=== PATIENT | female | born 1930 | race Caucasian/White ===

== ENCOUNTER 2018-04-17 07:38 | Emergency (ER) | payer MEDICARE ==
[~2018-04-17] VITALS: Ht 162.6 cm; Wt 54.4 kg
--- OUTSIDE RECORDS SUMMARY | ~2018-04-17 | XMS | Clinical Summary ---
Demographics + + + | Address | [address] | | | [place] [address] | + + + | Home Phone | | + + + | Preferred Language | Unknown | + + + | Marital Status | | + + + | Shinto Affiliation | 1077 | + + + | Race | Unknown | + + + | Ethnic Group | Unknown | + + + Author + + + | Author | [facility] | | | and [place] | + + + | Organization | [facility] | | | and [place] | + + + | Address | Unknown | + + + | Phone | Unavailable | + + + Support + + + + + | Name | Relationship | Address | Phone | + + + + + | Yury Tom | ECON | [address] | | | | | [place] | | | | | [address] | | + + + + + | Han Tom | ECON | [address] | | | | | [place] | | | | | [address] | | + + + + + Care Team Providers + +------+ + | Care Fixing Machine Operator Name | Role | Phone | + +------+ + | Alfred Jones MD | PP | | + +------+ + Allergies No Known Allergies Current Medications + + +--------+---------+------+------+-------+ | Prescription | Sig. | Disp. | Refills | Star | End | Statu | | | | | | t | Date | s | | | | | | Date | | | + + +--------+---------+------+------+-------+ | ALPRAZolam (XANAX) | 1 tablet by mouth | | | 08/2 | | Activ | | 0.25 mg tablet | twice daily as | | | 0/20 | | e | | | needed | | | 12 | | | + + +--------+---------+------+------+-------+ | sotalol (BETAPACE) | TAKE 1 TABLET TWICE | 180 | 3 | 03/2 | | Activ | | 80 mg tablet | DAILY | tablet | | 6/20 | | e | | | | | | 18 | | | + + +--------+---------+------+------+-------+ Active Problems + + + | Problem | Noted Date | + + + | VARICOSE VEIN | | + + + | IRRITABLE BOWEL SYNDROME, HX OF | | + + + | Paroxysmal atrial fibrillation (HCC) | | + + + | Paroxysmal supraventricular tachycardia (HCC) | | + + + | Palpitations | | + + + + + | Overview: Echo, 04/01/2011, LVEF was 75% | | Nuclear stress test, 04/01/2011, LVEF 84% | + + + +---+ | Hyperlipidemia, mixed | | + +---+ | Essential hypertension with goal blood pressure less than 130/80 | | + +---+ Family History + +-------+ + + | Relation | Name | Status | Comments | + +-------+ + + | Father | | | stroke | | | | (Age | | | | | 86) | | + +-------+ + + | Mother | | | | | | | (Age | | | | | 100) | | + +-------+ + + | Sister | Lorena | Alive | | + +-------+ + + | Sister | Beth | | stroke | + +-------+ + + Social History + + + [...] + +---------+ + | Alcohol Use | Drinks/We | oz/Week | Comments | | | ek | | | + + +---------+ + | No | | | | + + +---------+ + + + + | Sex Assigned at | Date Recorded | | | | + + + | Not on file | | + + + Last Filed Vital Signs + + + + | Vital Sign | Reading | Time Taken | + + + + | Blood Pressure | 138/80 | 09/08/20178 PDT | + + + + | Pulse | 60 | 09/08/20171247 PDT | + + + + | Temperature | - | - | + + + + | Respiratory Rate | 12 | 09/08/20171247 PDT | + + + + | Oxygen Saturation | - | - | + + + + | Inhaled Oxygen | - | - | | Concentration | | | + + + + | Weight | 56.2 kg (123 lb 14.4 | 09/08/20171247 PDT | | | oz) | | + + + + | Height | 160 cm (5' 3") | 09/08/20171247 PDT | + + + + | Body Mass Index | 21.95 | 09/08/2017 1248 PDT | + + + + Plan of Treatment +--------+---------+ + + + | Date | Type | Specialty | Care Team | Description | +--------+---------+ + + + | 09/08/ | Office | | Yair, | | | 2019 | Visit | | MALIK Bangura [address] | | | | | | [place], | | | | | | [place] [address] | | | | | | [phone] | | | | | | | | +--------+---------+ + + + + + + + + | Health Maintenance | Due Date | Last Done | Comments | + + + + + | Vaccine: | | | | | Dtap/Tdap/Td (1 - | 9 | | | | Tdap) | | | | + + + + + | Vaccine: Zoster (1 | | | | | of 2) | 0 | | | + + + + + | Vaccine: | | | | | Pneumococcal 65+ | 5 | | | | Low/Medium Risk (1 | | | | | of 2 - PCV13) | | | | + + + + + | Vaccine: Influenza | | | | | (#1) | 8 | | | + + + + + Results Not on filefrom Last 3 Months Insurance + +--------+ +--------+ +---------+ | Payer | Benefi | Subscriber | Type | Phone | Address | | | t Plan | ID | | | | | | / | | | | | | | Group | | | | | + +--------+ +--------+ +---------+ | MEDICARE | MEDICA | [id number] | Medica | [phone] | | | RE | | re | [phone] | | | | PART A | | | | | | | AND B | | | | | + +--------+ +--------+ +---------+ | AARP | AARP | [id number] | Indemn | [phone] | | | MDCR | | ity | [phone] | | | | SUPPL | | | | | + +--------+ +--------+ +---------+ + +--------+ +--------+ + + | Guarantor Name | Accoun | Relation to | Date | Phone | Billing Address | | | t Type | Patient | of | | | | | | | | | | + +--------+ +--------+ + + | NAYELY TOM | Person | Self [birth year] | Home: | [address] | | | al/Fam | | 1930 | [phone] | [place] [address] | | | [place] | | | [phone] | | + +--------+ +--------+ + +
--- OUTSIDE RECORDS SUMMARY | ~2018-04-17 | XMS | Clinical Summary ---
Demographics + + + | Address | [address] | | | [place] [address] | + + + | Home Phone [...] | Author | [facility] | | | and [place] | + + + | Organization | [facility] | | | and [...] [place] | | | | | [address] | | + + + + + | Han Tom | ECON | [address] | | | | | [place] | | | | | [address] | | + + + + + Care Team Providers + +------+ + | Care Line Up Worker Name | Role | Phone | [...] [place], | | | | | | [place] [address] | | | | | | [phone] | | | | | | | [...] +--------+ +---------+ | MEDICARE | MEDICA | [id number] | Medica | [phone] | | | | RE | | re | [phone] | | | | PART A | | | | | | | AND B | | | | | + +--------+ +--------+ +---------+ | AARP | AARP | [id number] | Indemn | [phone] | | | [...] | 1930 | [phone] | [place] [address] | | | [place] | | | [phone] | | + +--------+ +--------+ + +
[~2018-04-17 07:38] MED LIST: ALPRAZOLAM0.5 MG PO; ASPIRIN EC325 MG PO; NORCO 5-325 TA1 EACH PO; SOTALOL80 MG PO
[2018-04-17] MEDS ORDERED: KEFLEX500 MG PO (08:06)
== END 2018-04-17 08:15 | disposition home or self-care (01) ==
LOC: ED 07:38
DX: G89.18 Other acute postprocedural pain (principal); M79.605 Pain in left leg; Z48.817 Encounter for surgical aftercare following surgery on the skin and subcutaneous tissue; Z79.899 Other long term (current) drug therapy
CPT/HCPCS: 99283

== ENCOUNTER 2019-10-22 22:13 | Emergency (ER) | payer MEDICARE ==
[~2019-10-22] VITALS: Ht 162.6 cm; Wt 54.4 kg
--- OUTSIDE RECORDS SUMMARY | ~2019-10-22 | XMS | Encounter Summary ---
Demographics + + + | Address | [address] | | | [place] [address] | + + + | Home Phone | | + + + | Preferred Language | Unknown | + + + | Marital Status | | + + + | Congregation Affiliation | 1077 | + + + | Race | Unknown | + + + | Ethnic Group | Unknown | + + + Author + + + | Author | [facility] | | | and [place] | + + + | Organization | [facility] | | | and [place] | + + + | Address | Unknown | + + + | Phone | Unavailable | + + + Support + + + + + | Name | Relationship | Address | Phone | + + + + + | Yury Holt | ECON | [address] | | | | | [place] | | | | | [address] | | + + + + + | Han Holt | ECON | [address] | | | | | [place] | | | | | [address] | | + + + + + Care Team Providers + +------+ + | Care Circuit Clerk Name | Role | Phone | + +------+ + | Alfred Jones MD | PCP | | + +------+ + Reason for Visit + + + | Reason | Comments | + + + | Medication Refill | | + + + Encounter Details +--------+--------+ + + + | Date | Type | Department | Care Team | Description | +--------+--------+ + + + | 09/08/ | Refill | [facility] [place] | Yair, | Medication Refill | | 2017 | | [facility] [address] | MALIK Bangura [address] | | | | | [place], | [place], | | | | | [place] [address] | [place] [address] | | | | | [phone] | [phone] | | | | | | | | +--------+--------+ + + + Social History + + + +--------+------+ | Tobacco Use | Types | Packs/Day | Years | Date | | | | | Used | | + + + +--------+------+ | Former Smoker | Cigarettes | | | | + + + +--------+------+ + +---+---+---+ | Smokeless Tobacco: | | | | | Never Used | | | | + +---+---+---+ + + | Comments: quit smoking in 1949 | + + + + +---------+ + | Alcohol Use | Drinks/Week | oz/Week | Comments | + + +---------+ + | No | | | | + + +---------+ + + + + | Sex Assigned at | Date Recorded | | | | + + + | Not on file | | + + + + + + + | Job Start Date | Occupation | Industry | + + + + | Not on file | Not on file | Not on file | + + + + + + + + | Travel History | Travel Start | Travel End | + + + + + + | No recent travel history available. | + + documented as of this encounter Plan of Treatment Not on filedocumented as of this encounter Visit Diagnoses Not on filedocumented in this encounter"
--- OUTSIDE RECORDS SUMMARY | ~2019-10-22 | XMS | Encounter Summary ---
Demographics + + + | Address | [address] | | | [place] [address] | + + + | Home Phone | | + + + | Preferred Language | Unknown | + + + | Marital Status | | + + + | Faith Affiliation | 1077 | + + + | Race | Unknown | + + + | Ethnic Group | Unknown | + + + Author + + + | Author | [facility] | | | and [place] | + + + | Organization | [facility] | | | and [place] [...] [place] | | | | | [address] | | + + + + + | Han Holt | ECON | [address] | | | | | [place] | | | | | [address] | | + + + + + Care Team Providers + +------+ + | Care Optical Coating Technician Name | Role | Phone | + +------+ + | Alfred Jones MD | PCP | | + +------+ + Reason for Visit + + + | Reason | Comments | + + + | Follow-up | | + + + | Atrial Fibrillation | | + + + | Hypertension | | + + + | Palpitations | | + + + Encounter Details +--------+---------+ + + + | Date | Type | Department | Care Team | Description | +--------+---------+ + + + | 09/08/ | Office | [facility] [place] | [place], | Essential | | 2018 | Visit | CARDIOLOGY [address] | MALIK Bangura [address] | hypertension with | | | | [place], | [place], | goal blood pressure | | | | [place] [address] | [place] [address] | less than 130/80 | | | | [phone] | [phone] | (Primary Dx); | | | | | | Paroxysmal atrial | | | | | | fibrillation (HCC); | | | | | | Paroxysmal | | | | | | supraventricular | | | | | | tachycardia (HCC); | | | | | | Palpitations; | | | | | | Hyperlipidemia, | | | | | | mixed | +--------+---------+ + + + Social History + + [...] + + | Comments: quit smoking in 1948 | + + + + +---------+ + [...] + + documented as of this encounter Last Filed Vital Signs + + + + + | Vital Sign | Reading | Time Taken | Comments | + + + + + | Blood Pressure | 138/80 | 09/08/2017 12:48 PM | | | | | PDT | | + + + + + | Pulse | 60 | 09/08/2017 12:48 PM | | | | | PDT | | + + + + + | Temperature | - | - | | + + + + + | Respiratory Rate | 12 | 09/08/2017 12:48 PM | | | | | PDT | | + + + + + | Oxygen Saturation | - | - | | + + + + + | Inhaled Oxygen | - | - | | | Concentration | | | | + + + + + | Weight | 56.2 kg (123 lb 14.4 | 09/08/2017 12:48 PM | | | | oz) | PDT | | + + + + + | Height | 160 cm (5' 3") | 09/08/2017 12:48 PM | | | | | PDT | | + + + + + | Body Mass Index | 21.95 | 09/08/2017 12:48 PM | | | | | PDT | | + + + + + documented in this encounter Progress Notes Sveta Mazariegos ARNP - 09/08/2017 1:30 PM PDTFormatting of this note might be differen t from the original. PATIENT NAME: Nayely Holt : 1930: AGE: 87 y.o. PRIMARY CARE: Alfred Jones MD OUTPATIENT FOLLOW UP VISIT Date of Service: 09/08/2017 HISTORY OF PRESENT ILLNESS: Nayely Holt is a 87 y.o. female with a history of paroxysmal atrial fibrillation, es sential hypertension, anxiety disorder and mixed hyperlipidemia. She was last seen 09/02/16 at which time she has been advised to continue Sotalol but make sure the she takes it twice a day, continue with regular walking, she will follow up in 1 ye ar, or sooner with concerns. Since that time, she has been feeling "just great". She has had a good energy level. She t aviva to stay active. 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 She has not had an y chest pain or discomfort at rest or with exertion. She has not noticed shortness of erik th. She has not had any lightheadedness or dizziness. She has not noticed palpitations. S he has not had leg swelling. She is able to sleep laying down at night without any symptoms of shortness of breath. She has had no cardiac complaints or symptoms. MEDICAL, SURGICAL, AND PERSONAL HISTORY Past Medical, Surgical, Family, and Social History are reviewed in EPIC. CURRENT PROBLEMS Patient Active Problem List Diagnosis VARICOSE VEIN IRRITABLE BOWEL SYNDROME, HX OF Paroxysmal atrial fibrillation Paroxysmal supraventricular tachycardia Palpitations Hyperlipidemia, mixed Essential hypertension with goal blood pressure less than 130/80 CURRENT MEDICATIONS Current Outpatient Prescriptions Medication Sig Dispense Refill ALPRAZolam (XANAX) 0.25 mg tablet 1 tablet by mouth twice daily as needed sotalol (BETAPACE) 80 mg tablet Take 1 tablet by mouth 2 times daily. 180 tablet 3 No current facility-administered medications for this visit. ALLERGIES No Known Allergies ROS Review of Systems Constitutional: Negative for malaise/fatigue. HENT: Negative for nosebleeds. Respiratory: Negative for shortness of breath. Cardiovascular: Negative for chest pain, palpitations and leg swelling. Neurological: Negative for dizziness and headaches. OBJECTIVE: PHYSICAL EXAM BP 138/80 | Pulse 60 | Resp 12 | Ht 1.6 m (5' 3") | Wt 56.2 kg (123 lb 14.4 oz) | BMI 21.95 kg/m Physical Exam Constitutional: She appears well-developed and well-nourished. No distress. Female individual without acute distress. Neck: Normal carotid pulses, no hepatojugular reflux and no JVD present. Carotid bruit is n ot present. Cardiovascular: Regular rhythm, S1 normal, S2 normal, normal heart sounds, intact distal pu lses and normal pulses. Bradycardia present. PMI is not displaced. Exam reveals no gallop , no S3, no S4 and no friction rub. No murmur heard. Pulses: Carotid pulses are 2+ on the right side, and 2+ on the left side. Dorsalis pedis pulses are 2+ on the right side, and 2+ on the left side. Posterior tibial pulses are 2+ on the right side, and 2+ on the left side. Pulmonary/Chest: Effort normal and breath sounds normal. No accessory muscle usage. No resp iratory distress. She has no wheezes. She has no rhonchi. She has no rales. Abdominal: Normal appearance, normal aorta and bowel sounds are normal. She exhibits no abd ominal bruit. There is no hepatosplenomegaly. There is no tenderness. Musculoskeletal: She exhibits no edema. Neurological: She is alert. Gait normal. Skin: Skin is warm and dry. Small varicosities in lower extremities Psychiatric: She has a normal mood and affect. Her mood appears not anxious. She does not e xhibit a depressed mood. ECG: I personally independently reviewed ECG tracing during this visit (interpreted and naty led by another provider): Results for orders placed or performed in visit on 09/08/17 ECG 12 lead Result Value Ref Range INTERPRETATION TEXT Sinus bradycardia 1st degree AV block heart rate 54 bpm LAB RESULTS reviewed during visit today primarily from [facility]: LIPID Lab Results Component Value Date CHOLHDL 2.9 09/05/2017 LDLEX 137 (A) 09/05/2017 HDLEX 83.7 09/05/2017 TRIGEX 105 09/05/2017 CHOLEX 242 (A) 09/05/2017 CHEMISTRY Lab Results Component Value Date GLU 99 07/24/2013 GLUEX 88 09/05/2017 NA 138 07/24/2013 NAEX 139 09/05/2017 K 4.1 07/24/2013 KEX 4.1 09/05/2017 CL 105 07/24/2013 CLEX 102 09/05/2017 CO2 26 07/24/2013 CO2EX 28 09/05/2017 CALCIUM 8.9 07/24/2013 ALKPHOS 71 12/18/2011 ASTEX 16 09/05/2017 ALTEX 11 09/05/2017 BILITOT 0.5 12/18/2011 CREA 0.65 07/24/2013 BUN 26 (H) 07/24/2013 EGFR >60 07/24/2013 EGFREX 96 09/05/2017 CREEX 0.59 (A) 09/05/2017 HEMATOLOGY Lab Results Component Value Date WBC 4.9 (A) 04/04/2011 WBCEX 4.3 (A) 09/05/2017 HGB 12.9 04/04/2011 HGBEX 12.9 09/05/2017 HCT 38.0 (A) 04/04/2011 HCTEX 41.3 09/05/2017 PLT 211 04/04/2011 PLTEX 244 09/05/2017 I reviewed records from [facility] for office visit on 08/2016 whic h is summarized in the HPI. Above data and testing is reviewed this visit; testing below is historical data unless othe rwise specified. ASSESSMENT: 1. Paroxysmal atrial fibrillation/paroxysmal supraventricular tachycardia with palpitations : A. The echocardiogram from 04/01/11 revealed normal left ventricul ar size, LVEF 75%, grade 1 left ventricular diastolic dysfunction, trace MR, mild TR and mil d pulmonary hypertension, peak systolic pressure 40 mmHg. B. A normal Regadenoson SPECT MPI on 04/01/11. LVEF by gated SPE CT was 84%. C. Today she is in a normal sinus rhythm. She has had no breakthro ugh episodes of palpitations or atrial fibrillation. She is tolerating well the Sotalol. 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 There is no leg swelling on the physical e xam and no other signs or symptoms of overt congestive heart failure. Long-term anticoagul ations to minimize the risk of stroke was brought up again. She is taking aspirin and she is not interested in starting any anticoagulation medication at this point. She states mele t she understands her pros and cons but she chooses not to do that at this point. Risk of stroke is reviewed today; her risk factors are Age 65 to 74 (1) and Female Gender (1), mook g her a [id number] of 2, estimating a 2=2.2% risk of stroke per year in atrial fibrillatio n. Risk of bleed on anticoagulant is also reviewed today; her risk factors are HTN (1), >6 4 YO (1) and NSAIDS/ASA (1), giving her a HAS-BLED score of 3, patient is at 2-3= Interm ediate Risk (4.1-5.8%) for risk of bleed. ESC guidelines recommend anticoagulation for sc ores of 1 or greater. ACC guidelines recommend anticoagulation for scores of 2 or greater. She was on warfarin in the past and stopped taking it in 07/2011, and is not willing to cons ider anticoagulation at this time. She does not want to take Aspirin 2. Essential hypertension with goal blood pressure less than 130/80: A. well-controlled blood pressure 3. History of anxiety disorder: has not been an active issue for her 4. History of Hyperlipidemia, mixed: A. Borderline elevated cholesterol panel. Patient does not want to start any medication and she has reviewed with me low fat diet. PLAN: 1. The current medical regimen is effective; continue present plan and medications. 2. She will follow up in 1 year, or sooner with concerns. Portions of this chart may have been created with [employer] voice recognition software. Occasi onal wrong-word or sound-alike substitutions may have occurred due to the inherent ward itations of voice recognition software. Please read the chart carefully and recognize, using context, where these substitutions have occurred. documented in th is encounter Plan of Treatment Not on filedocumented as of this encounter Procedures + +--------+ + + + | Procedure Name | Priori | Date/Time | Associated Diagnosis | Comments | | | ty | | | | + +--------+ + + + | ECG 12 LEAD | Routin | 09/08/2017 | Essential | Results for this | | | e | 4:33 PM | hypertension with | procedure are in the | | | | PDT | goal blood pressure | results section. | | | | | less than 130/80 | | | | | | Paroxysmal atrial | | | | | | fibrillation (HCC) | | | | | | Paroxysmal | | | | | | supraventricular | | | | | | tachycardia (HCC) | | | | | | Palpitations | | | | | | Hyperlipidemia, | | | | | | mixed | | + +--------+ + + + documented in this encounter Results ECG 12 lead (09/08/2017 4:33 PM PDT) + + + + + + | Component | Value | Ref Range | Performed | Pathologist | | | | | At | Signature | + + + + + + | VENTRICULAR | 54 | BPM | [facility] | | | RATE EKG | | | | | + + + + + + | ATRIAL RATE | 54 | BPM | [facility] | | + + + + + + | P-R | 234 | ms | [facility] | | | INTERVAL | | | | | + + + + + + | QRS | 86 | ms | [facility] | | | DURATION | | | | | + + + + + + | Q-T | 428 | ms | [facility] | | | INTERVAL | | | | | + + + + + + | Q-T | 405 | ms | [facility] | | | INTERVAL | | | | | | (CORRECTED) | | | | | + + + + + + | P WAVE AXIS | 68 | degrees | [facility] | | + + + + + + | QRS AXIS | 60 | degrees | [facility] | | + + + + + + | T AXIS | 61 | degrees | [facility] | | + + + + + + | INTERPRETAT | Sinus bradycardia with | | [facility] | | | ION TEXT | 1st degree AV | | | | | | blockOtherwise normal | | | | | | ECGWhen compared with | | | | | | ECG of 02-SEP-2016 | | | | | | 12:54,No significant | | | | | | change was | | | | | | foundConfirmed by | | | | | | TADEO DUBOSE, GIACOMO | | | | | | ([id number]) on 09/08/2017 | | | | | | 4:33:31 PM | | | | + + + + + + + + | Specimen | + + | | + + + + + | Narrative | Performed At | + + + | | | + + + + +---------+ + + | Performing | Address | City/State/Zipcode | Phone Number | | Organization | | | | + +---------+ + + | [facility] | | | | + +---------+ + + documented in this encounter Visit Diagnoses + + | Diagnosis | + + | Essential hypertension with goal blood pressure less than 130/80 - Primary | + + | Paroxysmal atrial fibrillation (HCC) Atrial fibrillation | + + | Paroxysmal supraventricular tachycardia (HCC) Paroxysmal supraventricular tachycardia | + + | Palpitations | + + | Hyperlipidemia, mixed Mixed hyperlipidemia | + + documented in this encounter
--- OUTSIDE RECORDS SUMMARY | ~2019-10-22 | XMS | Encounter Summary ---
Demographics + + + | Address | [address] | | | [place] [address] | + + + | Home Phone | | + + + | Preferred Language | Unknown | + + + | Marital Status | | + + + | Pentecostal Affiliation | 1077 | + + + | Race | Unknown | + + + | Ethnic Group | Unknown | + + + Author + + + | Author | [facility] | | | and [place] | + + + | Organization | [facility] | | | and [...] [place] | | | | | [address] | | + + + + + | Han Holt | ECON | [address] | | | | | [place] | | | | | [address] | | + + + + + Care Team Providers + +------+ + | Care Rn Home Care Name | Role | Phone | + +------+ + | Alfred Jones MD | PCP | | + +------+ + Reason for Visit +--------+ + | Reason | Comments | +--------+ + | LABS | | +--------+ + Encounter Details +--------+ + + + + | Date | Type | Department | Care Team | Description | +--------+ + + + + | 08/28/ | Telephone | [facility] [place] | Yair | KAREN | | 2018 | | CARDIOLOGY [address] | MALIK Bangura [address] | | | | | [place], | [place], | | | | | [place] [address] | [place] [address] | | | | | [phone] | [phone] | | | | | | | | +--------+ + + + + Social History + + [...] as of this encounter Plan of Treatment + +------+--------+ + + | Name | Type | Priori | Associated Diagnoses | Order Schedule | | | | ty | | | + +------+--------+ + + | CBC with | Lab | Routin | Paroxysmal atrial | 1 Occurrences | | Differential | | e | fibrillation (HCC) | starting 08/28/2017 | | | | | | until 08/29/2018 | + +------+--------+ + + | Comprehensive | Lab | Routin | Paroxysmal atrial | 1 Occurrences | | Metabolic Panel | | e | fibrillation (HCC) | starting 08/28/2017 | | | | | | until 08/29/2018 | + +------+--------+ + + | Lipid Panel | Lab | Routin | Hyperlipidemia, | 1 Occurrences | | | | e | mixed | starting 08/28/2017 | | | | | | until 08/29/2018 | + +------+--------+ + + documented as of this encounter Visit Diagnoses + + | Diagnosis | + + | Paroxysmal atrial fibrillation (HCC) - Primary Atrial fibrillation | + + | Hyperlipidemia, mixed Mixed hyperlipidemia | + + documented in this encounter"
--- OUTSIDE RECORDS SUMMARY | ~2019-10-22 | XMS | Encounter Summary ---
Demographics + + + | Address | [address] | | | [place] [address] | + + + | Home Phone | | + + + | Preferred Language | Unknown | + + + | Marital Status | | + + + | Episcopal Affiliation | 1077 | + + + | Race | Unknown | + + + | Ethnic Group | Unknown | + + + Author + + + | Author | and [facility] | | | and [place] | + + + | Organization | and [facility] | | | and [place] | [...] [place] | | | | | [address] | | + + + + + | Han Holt | ECON | [address] | | | | | [place] | | | | | [address] | | + + + + + Care Team Providers + +------+ + | Care Cement Worker Name | Role | Phone | + +------+ + | Alfred Jones MD | PCP | | + +------+ + Encounter Details +--------+ + + + + | Date | Type | Department | Care Team | Description | +--------+ + + + + | 08/09/ | Abstract | [facility] | Yair, | | | 2014 | | CARDIOLOGY [address] | MALIK Bangura [address] | | | | | [place], | [place], | | | | | [place] [address] | [place] [address] | | | | | [phone] | [phone] | | | | | | | [...] | + +--------+ + + + | EXTERNAL LAB: | Routin | 05/11/2014 | | Results for this | | TRIGLYCERIDES | e | 10:56 AM | | procedure are in the | | | | PST | | results section. | + +--------+ + + + | EXTERNAL LAB: | Routin | 05/11/2014 | | Results for this | | CHOLESTEROL, HDL | e | 10:56 AM | | procedure are in the | | | | PST | | results section. | + +--------+ + + + | EXTERNAL LAB: | Routin | 05/11/2014 | | Results for this | | CHOLESTEROL, TOTAL | e | 10:56 AM | | procedure are in the | | | | PST | | results section. | + +--------+ + + + | EXTERNAL LAB: | Routin | 05/11/2014 | | Results for this | | CHOLESTEROL, LDL | e | 10:56 AM | | procedure are in the | | | | PST | | results section. | + +--------+ + + + | LIPID PANEL | Routin | 05/11/2014 | | Results for this | | | e | 10:56 AM | | procedure are in the | | | | PST | | results section. | + +--------+ + + + | HEMOGLOBIN A1C | Routin | 05/11/2014 | | Results for this | | | e | 10:56 AM | | procedure are in the | | | | PST | | results section. | + +--------+ + + + documented in this encounter Results Lipid Panel (05/11/2014 10:56 AM PST) + +-------+ + + + | Component | Value | Ref Range | Performed | Pathologist | | | | | At | Signature | + +-------+ + + + | Chol/HDL | 2.5 | | | | | Ratio | | | | | + +-------+ + + + | VLDL | 13 | mg/dL | | | + +-------+ + + + | LDl/HDL | 1.25 | | | | | Ratio | | | | | + +-------+ + + + + + | Specimen | + + | Blood specimen | | (specimen) | + + Hemoglobin A1C (05/11/2014 10:56 AM PST) + +-------+ + + + | Component | Value | Ref Range | Performed | Pathologist | | | | | At | Signature | + +-------+ + + + | Hemoglobin | 7.6 | 5.7 % | EXTERNAL | | | A1c | | | LAB | | + +-------+ + + + + + | Specimen | + + | Blood specimen | | (specimen) | + + + + | Resulting Agency Comment | + + | [facility] | + + + +---------+ + + | Performing | Address | City/State/Zipcode | Phone Number | | Organization | | | | + +---------+ + + | EXTERNAL LAB | | | | + +---------+ + + External Lab: Triglycerides (05/11/2014 10:56 AM PST) + +-------+ + + + | Component | Value | Ref Range | Performed | Pathologist | | | | | At | Signature | + +-------+ + + + | Triglycerid | 64 | 40 - 150 | EXTERNAL | | | es, | | | LAB | | | External | | | | | + +-------+ + + + + + | Specimen | + + | Blood specimen | | (specimen) | + + + + | Resulting Agency Comment | + + | [facility] | + + + +---------+ + + | Performing | Address | City/State/Zipcode | Phone Number | | Organization | | | | + +---------+ + + | EXTERNAL LAB | | | | + +---------+ + + External Lab: Cholesterol, HDL (05/11/2014 10:56 AM PST) + +-------+ + + + | Component | Value | Ref Range | Performed | Pathologist | | | | | At | Signature | + +-------+ + + + | HDL | 54 | 40 - 67 | EXTERNAL | | | Cholesterol | | | LAB | | | , External | | | | | + +-------+ + + + + + | Specimen | + + | Blood specimen | | (specimen) | + + + + | Resulting Agency Comment | + + | [facility] | + + + +---------+ + + | Performing | Address | City/State/Zipcode | Phone Number | | Organization | | | | + +---------+ + + | EXTERNAL LAB | | | | + +---------+ + + External Lab: Cholesterol, Total (05/11/2014 10:56 AM PST) + +-------+ + + + | Component | Value | Ref Range | Performed | Pathologist | | | | | At | Signature | + +-------+ + + + | Cholesterol | 134 | 200 | EXTERNAL | | | , Total, | | | LAB | | | External | | | | | + +-------+ + + + + + | Specimen | + + | Blood specimen | | (specimen) | + + + + | Resulting Agency Comment | + + | [facility] | + + + +---------+ + + | Performing | Address | City/State/Zipcode | Phone Number | | Organization | | | | + +---------+ + + | EXTERNAL LAB | | | | + +---------+ + + External Lab: Cholesterol, LDL (05/11/2014 10:56 AM PST) + +--------+ + + + | Component | Value | Ref Range | Performed | Pathologist | | | | | At | Signature | + +--------+ + + + | LDL | 67 (A) | 68 - 100 | EXTERNAL | | | Cholesterol | | | LAB | | | , Direct, | | | | | | External | | | | | + +--------+ + + + + + | Specimen | + + | Blood specimen | | (specimen) | + + + + | Resulting Agency Comment | + + | [facility] | + + + +---------+ + + | Performing | Address | City/State/Zipcode | Phone Number | | Organization | | | | + +---------+ + + | EXTERNAL LAB | | | | + +---------+ + + documented in this encounter Visit Diagnoses Not on filedocumented in this encounter"
--- OUTSIDE RECORDS SUMMARY | ~2019-10-22 | XMS | Encounter Summary ---
Demographics + + + | Address | [address] | | | [place] [address] | + + + | Home Phone | | + + + | Preferred Language | Unknown | + + + | Marital Status | | + + + | Spiritism Affiliation | 1077 | + + + | Race | Unknown | + + + | Ethnic Group | Unknown | + + + Author + + + | Author | [facility] | | | and [place] | + + + | Organization | [facility] | | | and [place] | [...] [place] | | | | | [address] | | + + + + + | Han Holt | ECON | [address] | | | | | [place] | | | | | [address] | | + + + + + Care Team Providers + +------+ + | Care Local Truck Driver Name | Role | Phone | + +------+ + | Alfred Jones MD | PCP | | + +------+ + Reason for Visit + + + | Reason | Comments | + + + | Lab Order | due for fastings labs | + + + Encounter Details +--------+ + + + + | Date | Type | Department | Care Team | Description | +--------+ + + + + | 08/29/ | Telephone | [facility] | Yair, | Lab Order (due for | | 2016 | | CARDIOLOGY [address] | Sveta, LEASE PICKER [address] | fastings labs ) | | | | [place], | [place], | | | | | [place] [address] | [place] [address] | | | | | [phone] | [phone] | | | | | | | [...]
--- OUTSIDE RECORDS SUMMARY | ~2019-10-22 | XMS | Encounter Summary ---
Demographics + + + | Address | [address] | | | [place] [address] | + + + | Home Phone | | + + + | Preferred Language | Unknown | + + + | Marital Status | | + + + | Mormon Affiliation | 1077 | + + + | Race | Unknown | + + + | Ethnic Group | Unknown | + + + Author + + + | Author | [facility] | | | and [place] | + + + | Organization | [facility] | | | and [place] | [...] [place] | | | | | [address] | | + + + + + | Han Holt | ECON | [address] | | | | | [place] | | | | | [address] | | + + + + + Care Team Providers + +------+ + | Care Tax Professional Name | Role | Phone | + +------+ + | Alfred Jones MD | PCP | | + +------+ + Reason for Visit + + + | Reason | Comments | + + + | Appointment | | + + + Encounter Details +--------+ + + + + | Date | Type | Department | Care Team | Description | +--------+ + + + + | 04/22/ | Telephone | [facility] | Dada Grant, | Appointment | | 2013 | | CARDIOLOGY [address] | MD [address] [place] | | | | | [place], | [place], | | | | | [place] [address] | [place] [id number] | | | | | [phone] | [phone] | | | | | | | [...]
--- OUTSIDE RECORDS SUMMARY | ~2019-10-22 | XMS | Encounter Summary ---
Demographics + + + | Address | [address] | | | [place] [address] | + + + | Home Phone | | + + + | Preferred Language | Unknown | + + + | Marital Status | | + + + | Congregation Affiliation | 1077 | + + + | Race | Unknown | + + + | Ethnic Group | Unknown | + + + Author + + + | Author | [facility] | | | and [place] | + + + | Organization | [facility] | | | and [place] [...] [place] | | | | | [address] | | + + + + + | Han Holt | ECON | [address] | | | | | [place] | | | | | [address] | | + + + + + Care Team Providers + +------+ + | Care Machine Gunner Name | Role | Phone | + +------+ + PCP | Unavailable | + +------+ + Encounter Details +--------+ + + + + | Date | Type | Department | Care Team | Description | +--------+ + + + + | 02/25/ | Abstract | [facility] | DATA [facility]IGRATION [facility]ANTE | | | 2011 | | Conversion Location | SR | | | | | [address] | | | | | | [place], [place] | | | | | | [address] | | | | | | [phone] | | | +--------+ + + + + Social History + +-------+ +--------+------+ | Tobacco Use | Types | Packs/Day | Years | Date | | | | | Used | | + +-------+ +--------+------+ | Never Assessed | | | | | + +-------+ +--------+------+ + + + | Sex Assigned at [...]
--- OUTSIDE RECORDS SUMMARY | ~2019-10-22 | XMS | Encounter Summary ---
Demographics + + + | Address | [address] | | | [place] [address] | + + + | Home Phone | | + + + | Preferred Language | Unknown | + + + | Marital Status | | + + + | Adventist Affiliation | 1077 | + + + | Race | Unknown | + + + | Ethnic Group | Unknown | + + + Author + + + | Author | [facility] | | | and [place] | + + + | Organization | [facility] | | | and [place] [...] [place] | | | | | [address] | | + + + + + | Han Holt | ECON | [address] | | | | | [place] | | | | | [address] | | + + + + + Care Team Providers + +------+ + | Care Asthma Educator Name | Role | Phone | + +------+ + | Alfred Jones MD | PCP | | + +------+ + Reason for Visit + + + | Reason | Comments | + + + | Lab Order | due for fasting labs prior to appt | + + + Encounter Details +--------+ + + + + | Date | Type | Department | Care Team | Description | +--------+ + + + + | 08/22/ | Telephone | [facility] | Yair, | Lab Order (due for | | 2015 | | CARDIOLOGY [address] | MALIK Bangura [address] | fasting labs prior | | | | [place], | [place], | to appt) | | | | [place] [address] | [place] [address] | | | | | [phone] | [phone] | | | | | | | [...]
--- OUTSIDE RECORDS SUMMARY | ~2019-10-22 | XMS | Encounter Summary ---
Demographics + + + | Address | [address] | | | [place] [address] | + + + | Home Phone | | + + + | Preferred Language | Unknown | + + + | Marital Status | | + + + | Restorationist Affiliation | 1077 | + + + | Race | Unknown | + + + | Ethnic Group | Unknown | + + + Author + + + | Author | [facility] | | | and [place] | + + + | Organization | [facility] | | | and [place] [...] [place] | | | | | [address] | | + + + + + | Han Holt | ECON | [address] | | | | | [place] | | | | | [address] | | + + + + + Care Team Providers + +------+ + | Care Sales Merchandise Associate Name | Role | Phone | + +------+ + PCP | Unavailable | + +------+ + Reason for Visit + + + | Reason | Comments | + + + | Recall For Services | | | (DMST) | | + + + Encounter Details +--------+ + + + + | Date | Type | Department | Care Team | Description | +--------+ + + + + | 12/31/ | Telephone | [facility] | Dada Grant, | Recall For Services | | 2012 | | CARDIOLOGY [address] | [address] [place] | [facility] | | | | [place], | [place], | | | | | [place] [address] | [place] [address] | | | | | [phone] | [phone] | | | | | | | [...]
--- OUTSIDE RECORDS SUMMARY | ~2019-10-22 | XMS | Encounter Summary ---
Demographics + + + | Address | [address] | | | [place] [address] | + + + | Home Phone | | + + + | Preferred Language | Unknown | + + + | Marital Status | | + + + | Mu-Ism Affiliation | 1077 | + + + | Race | Unknown | + + + | Ethnic Group | Unknown | + + + Author + + + | Author | [facility] | | | and [place] | + + + | Organization | [facility] | | [...] [place] | | | | | [address] | | + + + + + | Han Holt | ECON | [address] | | | | | [place] | | | | | [address] | | + + + + + Care Team Providers + +------+ + | Care Waxer Tender Name | Role | Phone | + +------+ + | Alfred Jones MD | PCP | | + +------+ + Encounter Details +--------+ + + + + | Date | Type | Department | Care Team | Description | +--------+ + + + + | 08/03/ | Orders Only | [facility] | Dada Grant, | Atrial fibrillation | | 2015 | | CARDIOLOGY [address] | [address] | (Primary Dx); | | | | [place], | [place], | Hyperlipidemia; | | | | [place] [address] | [place] [address] | Paroxysmal | | | | [phone] | [phone] | supraventricular | | | | | | tachycardia; | | | | | | Palpitations | +--------+ + + + + Social [...] | | + +------+--------+ + + | Lipid Panel | Lab | Routin | Atrial | Expected: | | | | e | fibrillation | 08/03/2014, Expires: | | | | | Hyperlipidemia | 08/03/2015 | | | | | Paroxysmal | | | | | | supraventricular | | | | | | tachycardia | | | | | | Palpitations | | + +------+--------+ + + | Comprehensive | Lab | Routin | Atrial | Expected: | | Metabolic Panel | | e | fibrillation | 08/03/2014, Expires: | | | | | Hyperlipidemia | 08/03/2015 | | | | | Paroxysmal | | | | | | supraventricular | | | | | | tachycardia | | | | | | Palpitations | | + +------+--------+ + + | CBC with | Lab | Routin | Atrial | Expected: | | Differential | | e | fibrillation | 08/03/2014, Expires: | | | | | Hyperlipidemia | 08/03/2015 | | | | | Paroxysmal | | | | | | supraventricular | | | | | | tachycardia | | | | | | Palpitations | | + +------+--------+ + + documented as of this encounter Visit Diagnoses + + | Diagnosis | + + | Atrial fibrillation - Primary | + + | Hyperlipidemia Other and unspecified hyperlipidemia | + + | Paroxysmal supraventricular tachycardia | + + | Palpitations | + + documented in this encounter"
--- OUTSIDE RECORDS SUMMARY | ~2019-10-22 | XMS | Encounter Summary ---
Demographics + + + | Address | [address] | | | [place] [address] | + + + | Home Phone | | + + + | Preferred Language | Unknown | + + + | Marital Status | | + + + | Spiritism Affiliation | 1077 | + + + | Race | Unknown | + + + | Ethnic Group | Unknown | + + + Author + + + | Author | [facility] | | | and [place] | + + + | Organization | [facility] | | | and [place] | | | | | [address] | | + + + + + | Han Holt | ECON | [address] | | | | | [place] | | | | | [address] | | + + + + + Care Team Providers + +------+ + | Care Blocking Machine Tender Name | Role | Phone | + +------+ + | Alfred Jones MD | PCP | | + +------+ + Reason for Visit +--------+ + | Reason | Comments | +--------+ + | Other | Annual cardiology intake and annual labs | +--------+ + Encounter Details +--------+ + + + + | Date | Type | Department | Care Team | Description | +--------+ + + + + | / | Telephone | [facility] | Dada Grant, | Other (Annual | | 2016 | | CARDIOLOGY [address] | [facility] | cardiology intake | | | | [place], | [place], | and annual labs) | | | | [place] [address] | [place] [address] | | | | | [phone] | [phone] | | | | | | | [...] | | | | e | fibrillation (HCC) | 08/14/2015, Expires: | | | | | Hyperlipidemia | 08/13/2016 | | | | | Paroxysmal | | | | | | supraventricular | | | | | | tachycardia | | + +------+--------+ + + | Comprehensive | Lab | Routin | Atrial | Expected: | | Metabolic Panel | | e | fibrillation (HCC) | 08/14/2015, Expires: | | | | | Hyperlipidemia | 08/13/2016 | | | | | Paroxysmal | | | | | | supraventricular | | | | | | tachycardia | | + +------+--------+ + + | CBC with | Lab | Routin | Atrial | Expected: | | Differential | | e | fibrillation (HCC) | 08/14/2015, Expires: | | | | | Hyperlipidemia | 08/13/2016 | | | | | Paroxysmal | | | | | | supraventricular | | | | | | tachycardia | | + +------+--------+ + + documented as of this encounter Visit Diagnoses + + | Diagnosis | + + | Atrial fibrillation, unspecified - Primary | + + | Hyperlipidemia, unspecified hyperlipidemia | + + | Paroxysmal supraventricular tachycardia | + + documented in this encounter"
--- OUTSIDE RECORDS SUMMARY | ~2019-10-22 | XMS | Encounter Summary ---
Demographics + + + | Address | [address] | | | [place] [address] | + + + | Home Phone | | + + + | Preferred Language | Unknown | + + + | Marital Status | | + + + | Rastafari Affiliation | 1077 | + + + | Race | Unknown | + + + | Ethnic Group | Unknown | + + + Author + + + | Author | [facility] | | | and [place] | + + + | Organization | [facility] | | | and [...] [place] | | | | | [address] | | + + + + + | Han Holt | ECON | [address] | | | | | [place] | | | | | [address] | | + + + + + Care Team Providers + +------+ + | Care Pasting Machine Operator Name | Role | Phone | + +------+ + | Alfred Jones MD | PCP | | + +------+ + Encounter Details +--------+ + + + + | Date | Type | Department | Care Team | Description | +--------+ + + + + | 09/08/ | Abstract | [facility] | Yair, | | | 2017 | | CARDIOLOGY [address] | [address] | | | | | [place], | [place], | | | | | [place] [address] | [place] [address] | | | | | [phone] | | | | | | | [...] | EXTERNAL LAB: BUN | Routin | 09/05/2017 | | Results for this | | | e | | | procedure are in the | | | | | | results section. | + +--------+ + + + | EXTERNAL LAB: | Routin | 09/05/2017 | | Results for this | | GLUCOSE | e | | | procedure are in the | | | | | | results section. | + +--------+ + + + | EXTERNAL LAB: ALT | Routin | 09/05/2017 | | Results for this | | | e | | | procedure are in the | | | | | | results section. | + +--------+ + + + | EXTERNAL LAB: AST | Routin | 09/05/2017 | | Results for this | | | e | | | procedure are in the | | | | | | results section. | + +--------+ + + + | EXTERNAL LAB: | Routin | 09/05/2017 | | Results for this | | ALKALINE PHOSPHATASE | e | | | procedure are in the | | | | | | results section. | + +--------+ + + + | EXTERNAL LAB: | Routin | 09/05/2017 | | Results for this | | BILIRUBIN, TOTAL | e | | | procedure are in the | | | | | | results section. | + +--------+ + + + | EXTERNAL LAB: | Routin | 09/05/2017 | | Results for this | | ALBUMIN | e | | | procedure are in the | | | | | | results section. | + +--------+ + + + | EXTERNAL LAB: | Routin | 09/05/2017 | | Results for this | | PROTEIN, TOTAL | e | | | procedure are in the | | | | | | results section. | + +--------+ + + + | EXTERNAL LAB: | Routin | 09/05/2017 | | Results for this | | CALCIUM | e | | | procedure are in the | | | | | | results section. | + +--------+ + + + | EXTERNAL LAB: CARBON | Routin | 09/05/2017 | | Results for this | | DIOXIDE | e | | | procedure are in the | | | | | | results section. | + +--------+ + + + | EXTERNAL LAB: | Routin | 09/05/2017 | | Results for this | | CHLORIDE | e | | | procedure are in the | | | | | | results section. | + +--------+ + + + | EXTERNAL LAB: | Routin | 09/05/2017 | | Results for this | | POTASSIUM | e | | | procedure are in the | | | | | | results section. | + +--------+ + + + | EXTERNAL LAB: SODIUM | Routin | 09/05/2017 | | Results for this | | | e | | | procedure are in the | | | | | | results section. | + +--------+ + + + | EXTERNAL LAB: CBC | Routin | 09/05/2017 | | Results for this | | | e | | | procedure are in the | | | | | | results section. | + +--------+ + + + | EXTERNAL LAB: | Routin | 09/05/2017 | | Results for this | | TRIGLYCERIDES | e | | | procedure are in the | | | | | | results section. | + +--------+ + + + | EXTERNAL LAB: | Routin | 09/05/2017 | | Results for this | | CHOLESTEROL, HDL | e | | | procedure are in the | | | | | | results section. | + +--------+ + + + | EXTERNAL LAB: | Routin | 09/05/2017 | | Results for this | | CHOLESTEROL, TOTAL | e | | | procedure are in the | | | | | | results section. | + +--------+ + + + | EXTERNAL LAB: | Routin | 09/05/2017 | | Results for this | | CHOLESTEROL, LDL | e | | | procedure are in the | | | | | | results section. | + +--------+ + + + | EXTERNAL LAB: EGFR | Routin | 09/05/2017 | | Results for this | | | e | | | procedure are in the | | | | | | results section. | + +--------+ + + + | EXTERNAL LAB: | Routin | 09/05/2017 | | Results for this | | CREATININE | e | | | procedure are in the | | | | | | results section. | + +--------+ + + + | LIPID PANEL | Routin | 09/05/2017 | | Results for this | | | e | | | procedure are in the | | | | | | results section. | + +--------+ + + + | CBC WITH | Routin | 09/05/2017 | | Results for this | | DIFFERENTIAL | e | | | procedure are in the | | | | | | results section. | + +--------+ + + + | COMPREHENSIVE | Routin | 09/05/2017 | | Results for this | | METABOLIC PANEL | e | | | procedure are in the | | | | | | results section. | + +--------+ + + + documented in this encounter Results CBC with Differential (09/05/2017) + +-------+ + + + | Component | Value | Ref Range | Performed | Pathologist | | | | | At | Signature | + +-------+ + + + | MCH | 28.0 | 26.0 - 33.0 pg | | | + +-------+ + + + | MCHC | 31.0 | 30.0 - 36.0 % | | | + +-------+ + + + | BF % | 1.2 | | | | | Basophils | | | | | + +-------+ + + + + + | Specimen | + + | Blood | + + External Lab: CBC (09/05/2017) + +---------+ + + + | Component | Value | Ref Range | Performed | Pathologist | | | | | At | Signature | + +---------+ + + + | WBC, | 4.3 (A) | 4.5 | | | | External | | | | | + +---------+ + + + | HGB, | 12.9 | | | | | External | | | | | + +---------+ + + + | HCT, | 41.3 | | | | | External | | | | | + +---------+ + + + | PLT, | 244 | | | | | External | | | | | + +---------+ + + + | Neutrophils | 54.8 | | | | | %, | | | | | | External | | | | | + +---------+ + + + | Lymphocytes | 26.5 | | | | | %, | | | | | | External | | | | | + +---------+ + + + | Monocytes | 10.8 | | | | | %, External | | | | | + +---------+ + + + | Eosinophils | 6.7 (A) | 6 | | | | %, | | | | | | External | | | | | + +---------+ + + + | RBC, | 4.58 | | | | | External | | | | | + +---------+ + + + | MCV, | 90 | | | | | External | | | | | + +---------+ + + + | RDW, | 14 | | | | | External | | | | | + +---------+ + + + Comprehensive Metabolic Panel (09/05/2017) + + + + + + | Component | Value | Ref Range | Performed | Pathologist | | | | | At | Signature | + + + + + + | Anion Gap | 13 | mmol/L | | | + + + + + + | BUN/Creatin | 28.8 (A) | 6.0 - 28.6 | | | | ine Ratio | | | | | + + + + + + | Globulin | 3.1 | | | | + + + + + + | Albumin/Tiera | 1.2 | | | | | bulin Ratio | | | | | + + + + + + + + | Specimen | + + | Blood | + + External Lab: BUN (09/05/2017) + +-------+ + + + | Component | Value | Ref Range | Performed | Pathologist | | | | | At | Signature | + +-------+ + + + | BUN, | 17 | | | | | External | | | | | + +-------+ + + + External Lab: Glucose (09/05/2017) + +-------+ + + + | Component | Value | Ref Range | Performed | Pathologist | | | | | At | Signature | + +-------+ + + + | Glucose, | 88 | | | | | External | | | | | + +-------+ + + + External Lab: ALT (09/05/2017) + +-------+ + + + | Component | Value | Ref Range | Performed | Pathologist | | | | | At | Signature | + +-------+ + + + | ALT, | 11 | | | | | External | | | | | + +-------+ + + + External Lab: AST (09/05/2017) + +-------+ + + + | Component | Value | Ref Range | Performed | Pathologist | | | | | At | Signature | + +-------+ + + + | AST, | 16 | | | | | External | | | | | + +-------+ + + + External Lab: Alkaline Phosphatase (09/05/2017) + +-------+ + + + | Component | Value | Ref Range | Performed | Pathologist | | | | | At | Signature | + +-------+ + + + | ALP, | 84 | | | | | External | | | | | + +-------+ + + + External Lab: Bilirubin, Total (09/05/2017) + +-------+ + + + | Component | Value | Ref Range | Performed | Pathologist | | | | | At | Signature | + +-------+ + + + | Bilirubin, | 0.5 | | | | | Total, | | | | | | External | | | | | + +-------+ + + + External Lab: Albumin (09/05/2017) + +-------+ + + + | Component | Value | Ref Range | Performed | Pathologist | | | | | At | Signature | + +-------+ + + + | Albumin, | 3.7 | | | | | External | | | | | + +-------+ + + + External Lab: Protein, Total (09/05/2017) + +-------+ + + + | Component | Value | Ref Range | Performed | Pathologist | | | | | At | Signature | + +-------+ + + + | Protein, | 6.8 | | | | | Total, | | | | | | External | | | | | + +-------+ + + + External Lab: Calcium (09/05/2017) + +-------+ + + + | Component | Value | Ref Range | Performed | Pathologist | | | | | At | Signature | + +-------+ + + + | Calcium, | 9.0 | | | | | External | | | | | + +-------+ + + + External Lab: Carbon Dioxide (09/05/2017) + +-------+ + + + | Component | Value | Ref Range | Performed | Pathologist | | | | | At | Signature | + +-------+ + + + | Carbon | 28 | | | | | Dioxide, | | | | | | External | | | | | + +-------+ + + + External Lab: Chloride (09/05/2017) + +-------+ + + + | Component | Value | Ref Range | Performed | Pathologist | | | | | At | Signature | + +-------+ + + + | Chloride, | 102 | | | | | External | | | | | + +-------+ + + + External Lab: Potassium (09/05/2017) + +-------+ + + + | Component | Value | Ref Range | Performed | Pathologist | | | | | At | Signature | + +-------+ + + + | Potassium, | 4.1 | | | | | External | | | | | + +-------+ + + + External Lab: Sodium (09/05/2017) + +-------+ + + + | Component | Value | Ref Range | Performed | Pathologist | | | | | At | Signature | + +-------+ + + + | Sodium, | 139 | | | | | External | | | | | + +-------+ + + + External Lab: eGFR (09/05/2017) + +-------+ + + + | Component | Value | Ref Range | Performed | Pathologist | | | | | At | Signature | + +-------+ + + + | eGFR, | 96 | | | | | External | | | | | + +-------+ + + + + + | Specimen | + + | Blood | + + External Lab: Creatinine (09/05/2017) + + + + + + | Component | Value | Ref Range | Performed | Pathologist | | | | | At | Signature | + + + + + + | Creatinine, | 0.59 (A) | 0.7 | | | | External | | | | | + + + + + + + + | Specimen | + + | Blood | + + Lipid Panel (09/05/2017) + +-------+ + + + | Component | Value | Ref Range | Performed | Pathologist | | | | | At | Signature | + +-------+ + + + | VLDL | 21 | mg/dL | | | + +-------+ + + + | Chol/HDL | 2.9 | | | | | Ratio | | | | | + +-------+ + + + | Non HDL | 158 | | | | | Chol. | | | | | | (LDL+VLDL) | | | | | + +-------+ + + + + + | Specimen | + + | Blood | + + External Lab: Triglycerides (09/05/2017) + +-------+ + + + | Component | Value | Ref Range | Performed | Pathologist | | | | | At | Signature | + +-------+ + + + | Triglycerid | 105 | | | | | es, | | | | | | External | | | | | + +-------+ + + + + + | Specimen | + + | Blood | + + External Lab: Cholesterol, HDL (09/05/2017) + +-------+ + + + | Component | Value | Ref Range | Performed | Pathologist | | | | | At | Signature | + +-------+ + + + | HDL | 83.7 | mg/dl | | | | Cholesterol | | | | | | , External | | | | | + +-------+ + + + + + | Specimen | + + | Blood | + + External Lab: Cholesterol, Total (09/05/2017) + +---------+ + + + | Component | Value | Ref Range | Performed | Pathologist | | | | | At | Signature | + +---------+ + + + | Cholesterol | 242 (A) | 200 mg/dl | | | | , Total, | | | | | | External | | | | | + +---------+ + + + + + | Specimen | + + | Blood | + + External Lab: Cholesterol, LDL (09/05/2017) + +---------+ + + + | Component | Value | Ref Range | Performed | Pathologist | | | | | At | Signature | + +---------+ + + + | LDL | 137 (A) | 100 | | | | Cholesterol | | | | | | , Direct, | | | | | | External | | | | | + +---------+ + + + + + | Specimen | + + | Blood | + + documented in this encounter Visit Diagnoses Not on filedocumented in this encounter"
--- OUTSIDE RECORDS SUMMARY | ~2019-10-22 | XMS | Encounter Summary ---
Demographics + + + | Address | [address] | | | [place] [address] | + + + | Home Phone | | + + + | Preferred Language | Unknown | + + + | Marital Status | | + + + | Rastafarian Affiliation | 1077 | + + + | Race | Unknown | + + + | Ethnic Group | Unknown | + + + Author + + + | Author | [facility] | | | and [place] | + + + | Organization | [facility] | | | and [place] [...] [place] | | | | | [address] | | + + + + + | Han Holt | ECON | [address] | | | | | [place] | | | | | [address] | | + + + + + Care Team Providers + +------+ + | Care Pharmaceutical Process Engineer Name | Role | Phone | [...] | Office | [facility] [place] | [place], | [facility] | | 2018 | Visit | CARDIOLOGY [address] | [address] | hypertension with | | | | [place], | [place], | goal blood pressure | | | | [place] [address] | [place] [address] | less than 130/80 | | | | [phone] | [phone] | (Primary Dx); | | | | [...] RESULTS reviewed during visit today primarily from [facility]: LIPID Lab Results Component Value Date CHOLHDL [...] PLTEX 244 09/05/2017 I reviewed records from [facility] for office visit on 08/2016 whic h [...] is in class I of t he [place] [employer] functional class. There is no [...] Female Gender (1), mook g her a [id number] of 2, estimating a 2=2.2% risk of [...] this chart may have been created with [employer] voice recognition software. Occasi onal wrong-word or [...] GIACOMO | | | | | | ([id number]) on 09/08/2017 | | | | | [...]
--- OUTSIDE RECORDS SUMMARY | ~2019-10-22 | XMS | Encounter Summary ---
Demographics + + + | Address | [address] | | | [place] [address] | + + + | Home Phone | | + + + | Preferred Language | Unknown | + + + | Marital Status | | + + + | Temple Affiliation | 1077 | + + + | Race | Unknown | + + + | Ethnic Group | Unknown | + + + Author + + + | Author | [facility] | | | and [place] | + + + | Organization | [facility] | | | and [place] [...] [place] | | | | | [address] | | + + + + + | Han Holt | ECON | [address] | | | | | [place] | | | | | [address] | | + + + + + Care Team Providers + +------+ + | Care Land Law Examiner Name | Role | Phone | + +------+ + | Alfred Jones MD | PCP | | + +------+ + Encounter Details +--------+ + + + + | Date | Type | Department | Care Team | Description | +--------+ + + + + | 08/09/ | Abstract | [facility] | Dada Grant, | | | 2015 | | CARDIOLOGY [address] | | | | | [place], | [place], | | | | | [place] [address] | [place] [address] | | | | | [phone] | [phone] | | | | | | | [...] | EXTERNAL LAB: BUN | Routin | 08/05/2014 | | Results for this | | | e | | | procedure are in the | | | | | | results section. | + +--------+ + + + | EXTERNAL LAB: | Routin | 08/05/2014 | | Results for this | | GLUCOSE | e | | | procedure are in the | | | | | | results section. | + +--------+ + + + | EXTERNAL LAB: ALT | Routin | 08/05/2014 | | Results for this | | | e | | | procedure are in the | | | | | | results section. | + +--------+ + + + | EXTERNAL LAB: AST | Routin | 08/05/2014 | | Results for this | | | e | | | procedure are in the | | | | | | results section. | + +--------+ + + + | EXTERNAL LAB: | Routin | 08/05/2014 | | Results for this | | ALKALINE PHOSPHATASE | e | | | procedure are in the | | | | | | results section. | + +--------+ + + + | EXTERNAL LAB: | Routin | 08/05/2014 | | Results for this | | BILIRUBIN, TOTAL | e | | | procedure are in the | | | | | | results section. | + +--------+ + + + | EXTERNAL LAB: | Routin | 08/05/2014 | | Results for this | | ALBUMIN | e | | | procedure are in the | | | | | | results section. | + +--------+ + + + | EXTERNAL LAB: | Routin | 08/05/2014 | | Results for this | | PROTEIN, TOTAL | e | | | procedure are in the | | | | | | results section. | + +--------+ + + + | EXTERNAL LAB: | Routin | 08/05/2014 | | Results for this | | CALCIUM | e | | | procedure are in the | | | | | | results section. | + +--------+ + + + | EXTERNAL LAB: CARBON | Routin | 08/05/2014 | | Results for this | | DIOXIDE | e | | | procedure are in the | | | | | | results section. | + +--------+ + + + | EXTERNAL LAB: | Routin | 08/05/2014 | | Results for this | | CHLORIDE | e | | | procedure are in the | | | | | | results section. | + +--------+ + + + | EXTERNAL LAB: | Routin | 08/05/2014 | | Results for this | | POTASSIUM | e | | | procedure are in the | | | | | | results section. | + +--------+ + + + | EXTERNAL LAB: SODIUM | Routin | 08/05/2014 | | Results for this | | | e | | | procedure are in the | | | | | | results section. | + +--------+ + + + | EXTERNAL LAB: CBC | Routin | 08/05/2014 | | Results for this | | | e | | | procedure are in the | | | | | | results section. | + +--------+ + + + | EXTERNAL LAB: | Routin | 08/05/2014 | | Results for this | | TRIGLYCERIDES | e | | | procedure are in the | | | | | | results section. | + +--------+ + + + | EXTERNAL LAB: | Routin | 08/05/2014 | | Results for this | | CHOLESTEROL, HDL | e | | | procedure are in the | | | | | | results section. | + +--------+ + + + | EXTERNAL LAB: | Routin | 08/05/2014 | | Results for this | | CHOLESTEROL, TOTAL | e | | | procedure are in the | | | | | | results section. | + +--------+ + + + | EXTERNAL LAB: | Routin | 08/05/2014 | | Results for this | | CHOLESTEROL, LDL | e | | | procedure are in the | | | | | | results section. | + +--------+ + + + | EXTERNAL LAB: EGFR | Routin | 08/05/2014 | | Results for this | | | e | | | procedure are in the | | | | | | results section. | + +--------+ + + + | EXTERNAL LAB: | Routin | 08/05/2014 | | Results for this | | CREATININE | e | | | procedure are in the | | | | | | results section. | + +--------+ + + + | LIPID PANEL | Routin | 08/05/2014 | | Results for this | | | e | | | procedure are in the | | | | | | results section. | + +--------+ + + + | CBC WITH | Routin | 08/05/2014 | | Results for this | | DIFFERENTIAL | e | | | procedure are in the | | | | | | results section. | + +--------+ + + + | COMPREHENSIVE | Routin | 08/05/2014 | | Results for this | | METABOLIC PANEL | e | | | procedure are in the | | | | | | results section. | + +--------+ + + + documented in this encounter Results CBC with Differential (08/05/2014) + +-------+ + + + | Component | Value | Ref Range | Performed | Pathologist | | | | | At | Signature | + +-------+ + + + | MCH | 29.0 | 26.0 - 33.0 pg | | | + +-------+ + + + | MCHC | 33.0 | 30.0 - 36.0 % | | | + +-------+ + + + | % Basophils | 0.4 | 1.0 % | | | + +-------+ + + + + + | Specimen | + + | Blood specimen | | (specimen) | + + Comprehensive Metabolic Panel (08/05/2014) + +-------+ + + + | Component | Value | Ref Range | Performed | Pathologist | | | | | At | Signature | + +-------+ + + + | Anion Gap | 12 | 7 - 21 mmol/L | [facility] | | | | | [facility] | | | | | [facility] | | | [facility] - | | | | | | [facility]ORY | | + +-------+ + + + | Bun/Creatin | 26.7 | 6 - 28.6 | [facility] | | | ine | | | [facility] | | | | | | [facility] | | | | | | [facility] - | | | | | | LABORATORY | | + +-------+ + + + | Globulin | 2.7 | 1.8 - 3.5 | [facility] | | | | | | [facility] | | | | | | [facility] | | | | | [facility] - | | | | | | LABORATORY | | + +-------+ + + + | Albumin/Tiera | 1.5 | 1.1 - 2.4 | [facility] | [...] + + | [facility] | [address] | [place] | | | [facility] | | [address], [facility] | | | - LABORATORY | | | | + + + + + Lipid Panel (08/05/2014) + +---------+ + + + | Component | Value | Ref Range | Performed | Pathologist | | | | | At | Signature | + +---------+ + + + | Chol/HDL | 3.0 | 0.0 - 4.4 | | | | Ratio | | | | | + +---------+ + + + | Non-HDL | 173 (A) | 0 - 130 | | | | Cholesterol | | | | | + +---------+ + + + + + | Specimen | + + | Blood specimen | | (specimen) | + + External Lab: BUN (08/05/2014) + +-------+ + + + | Component [...] Agency Comment | + + | [facility] | + + + +---------+ + + | Performing | Address | City/State/Zipcode | Phone Number | | Organization | | | | + +---------+ + + | EXTERNAL LAB | | | | + +---------+ + + External Lab: Glucose (08/05/2014) + +-------+ + + + | Component | Value | Ref Range | Performed | Pathologist | | | | | At | Signature | + +-------+ + + + | Glucose, | 94 | 70 - 100 | EXTERNAL | | | External | | | LAB | | + +-------+ + + + + + | Resulting Agency Comment | + + | [facility] | + + + +---------+ + + | Performing | Address | City/State/Zipcode | Phone Number | | Organization | | | | + +---------+ + + | EXTERNAL LAB | | | | + +---------+ + + External Lab: ALT (08/05/2014) + +-------+ + + + | Component [...] Agency Comment | + + | [facility] | + + + +---------+ + + | Performing | Address | City/State/Zipcode | Phone Number | | Organization | | | | + +---------+ + + | EXTERNAL LAB | | | | + +---------+ + + External Lab: AST (08/05/2014) + +-------+ + + + | Component | Value | Ref Range | Performed | Pathologist | | | | | At | Signature | + +-------+ + + + | AST, | 19 | 13 - 39 | EXTERNAL | | | External | | | LAB | | + +-------+ + + + + + | Resulting Agency Comment | + + | [facility] | + + + +---------+ + + | Performing | Address | City/State/Zipcode | Phone Number | | Organization | | | | + +---------+ + + | EXTERNAL LAB | | | | + +---------+ + + External Lab: Alkaline Phosphatase (08/05/2014) + +-------+ + + + | Component [...] Agency Comment | + + | [facility] | + + + +---------+ + + | Performing | Address | City/State/Zipcode | Phone Number | | Organization | | | | + +---------+ + + | EXTERNAL LAB | | | | + +---------+ + + External Lab: Bilirubin, Total (08/05/2014) + +-------+ + + + | Component [...] Agency Comment | + + | [facility] | + + + +---------+ + + | Performing | Address | City/State/Zipcode | Phone Number | | Organization | | | | + +---------+ + + | EXTERNAL LAB | | | | + +---------+ + + External Lab: Albumin (08/05/2014) + +-------+ + + + | Component | Value | Ref Range | Performed | Pathologist | | | | | At | Signature | + +-------+ + + + | Albumin, | 4 | 3.5 - 5 | EXTERNAL | | | External | | | LAB | | + +-------+ + + + + + | Resulting Agency Comment | + + | [facility] | + + + +---------+ + + | Performing | Address | City/State/Zipcode | Phone Number | | Organization | | | | + +---------+ + + | EXTERNAL LAB | | | | + +---------+ + + External Lab: Protein, Total (08/05/2014) + +-------+ + + + | Component | Value | Ref Range | Performed | Pathologist | | | | | At | Signature | + +-------+ + + + | Protein, | 6.7 | 6 - 8 | EXTERNAL | | | Total, | | | LAB | | | External | | | | | + +-------+ + + + + + | Resulting Agency Comment | + + | [facility] | + + + +---------+ + + | Performing | Address | City/State/Zipcode | Phone Number | | Organization | | | | + +---------+ + + | EXTERNAL LAB | | | | + +---------+ + + External Lab: Calcium (08/05/2014) + +--------+ + + + | Component | Value | Ref Range | Performed | Pathologist | | | | | At | Signature | + +--------+ + + + | Calcium, | 92 (A) | 8.4 - 10.2 | EXTERNAL | | | External | | | LAB | | + +--------+ + + + + + | Resulting Agency Comment | + + | [facility] | + + + +---------+ + + | Performing | Address | City/State/Zipcode | Phone Number | | Organization | | | | + +---------+ + + | EXTERNAL LAB | | | | + +---------+ + + External Lab: Carbon Dioxide (08/05/2014) + +-------+ + + + | Component | Value | Ref Range | Performed | Pathologist | | | | | At | Signature | + +-------+ + + + | Carbon | 28 | 19 - 31 | EXTERNAL | | | Dioxide, | | | LAB | | | External | | | | | + +-------+ + + + + + | Resulting Agency Comment | + + | [facility] | + + + +---------+ + + | Performing | Address | City/State/Zipcode | Phone Number | | Organization | | | | + +---------+ + + | EXTERNAL LAB | | | | + +---------+ + + External Lab: Chloride (08/05/2014) + +-------+ + + + | Component | Value | Ref Range | Performed | Pathologist | | | | | At | Signature | + +-------+ + + + | Chloride, | 102 | 95 - 112 | EXTERNAL | | | External | | | LAB | | + +-------+ + + + + + | Resulting Agency Comment | + + | [facility] | + + + +---------+ + + | Performing | Address | City/State/Zipcode | Phone Number | | Organization | | | | + +---------+ + + | EXTERNAL LAB | | | | + +---------+ + + External Lab: Potassium (08/05/2014) + +-------+ + + + | Component | Value | Ref Range | Performed | Pathologist | | | | | At | Signature | + +-------+ + + + | Potassium, | 4.4 | 3.6 - 5.1 | EXTERNAL | | | External | | | LAB | | + +-------+ + + + + + | Resulting Agency Comment | + + | [facility] | + + + +---------+ + + | Performing | Address | City/State/Zipcode | Phone Number | | Organization | | | | + +---------+ + + | EXTERNAL LAB | | | | + +---------+ + + External Lab: Sodium (08/05/2014) + +-------+ + + + | Component [...] Agency Comment | + + | [facility] | + + + +---------+ + + | Performing | Address | City/State/Zipcode | Phone Number | | Organization | | | | + +---------+ + + | EXTERNAL LAB | | | | + +---------+ + + External Lab: CBC (08/05/2014) + + + + + + | Component | Value | Ref Range | Performed | Pathologist | | | | | At | Signature | + + + + + + | WBC, | 5.3 | 4.5 - 11 | EXTERNAL | | | External | | | LAB | | + + + + + + | HGB, | 13.7 | 12 - 18 | EXTERNAL | | | External | | | LAB | | + + + + + + | HCT, | 41.7 | 35 - 50 | EXTERNAL | | | External | | | LAB | | + + + + + + | PLT, | 252 | 140 - 440 | EXTERNAL | | | External | | | LAB | | + + + + + + | Neutrophils | 63.9 | 39 - 80 | EXTERNAL | | | %, | | | LAB | | | External | | | | | + + + + + + | Lymphocytes | 19.4 (A) | 24 - 44 | EXTERNAL | | | %, | | | LAB | | | External | | | | | + + + + + + | Monocytes | 12.2 (A) | 0 - 12 | EXTERNAL | | | %, External | | | LAB | | + + + + + + | Eosinophils | 4.1 | 0 - 6 | EXTERNAL | | | %, | | | LAB | | | External | | | | | + + + + + + | RBC, | 4.69 | 3.8 - 5.7 | EXTERNAL | | | External | | | LAB | | + + + + + + | MCV, | 89 | 81 - 99 | EXTERNAL | | | External | | | LAB | | + + + + + + | RDW, | 14 | 10.5 - 15 | EXTERNAL | | | External | | | LAB | | + + + + + + + + | Resulting Agency Comment | + + | [facility] | + + + +---------+ + + | Performing | Address | City/State/Zipcode | Phone Number | | Organization | | | | + +---------+ + + | EXTERNAL LAB | | | | + +---------+ + + External Lab: Triglycerides (08/05/2014) + +-------+ + + + | Component | Value | Ref Range | Performed | Pathologist | | | | | At | Signature | + +-------+ + + + | Triglycerid | 60 | 30 - 150 | EXTERNAL | | | es, | | | LAB | | | External | | | | | + +-------+ + + + + + | Specimen | + + | Blood specimen | | (specimen) | + + + + | Resulting Agency Comment | + + | [facility] | + + + +---------+ + + | Performing | Address | City/State/Zipcode | Phone Number | | Organization | | | | + +---------+ + + | EXTERNAL LAB | | | | + +---------+ + + External Lab: Cholesterol, HDL (08/05/2014) + +-------+ + + + | Component | Value | Ref Range | Performed | Pathologist | | | | | At | Signature | + +-------+ + + + | HDL | 86 | 40 - 99,999 | EXTERNAL | | | Cholesterol | | mg/dl | LAB | | | , External | | | | | + +-------+ + + + + + | Specimen | + + | Blood specimen | | (specimen) | + + + + | Resulting Agency Comment | + + | [facility] | + + + +---------+ + + | Performing | Address | City/State/Zipcode | Phone Number | | Organization | | | | + +---------+ + + | EXTERNAL LAB | | | | + +---------+ + + External Lab: Cholesterol, Total (08/05/2014) + +---------+ + + + | Component | Value | Ref Range | Performed | Pathologist | | | | | At | Signature | + +---------+ + + + | Cholesterol | 259 (A) | 0 - 200 mg/dl | EXTERNAL | | | , Total, | | | LAB | | | External | | | | | + +---------+ + + + + + | Specimen | + + | Blood specimen | | (specimen) | + + + + | Resulting Agency Comment | + + | [facility] | + + + +---------+ + + | Performing | Address | City/State/Zipcode | Phone Number | | Organization | | | | + +---------+ + + | EXTERNAL LAB | | | | + +---------+ + + External Lab: Cholesterol, LDL (08/05/2014) + +---------+ + + + | Component | Value | Ref Range | Performed | Pathologist | | | | | At | Signature | + +---------+ + + + | LDL | 161 (A) | 0 - 100 | EXTERNAL | | | Cholesterol | | | LAB | | | , Direct, | | | | | | External | | | | | + +---------+ + + + + + | Specimen | + + | Blood specimen | | (specimen) | + + + + | Resulting Agency Comment | + + | [facility] | + + + +---------+ + + | Performing | Address | City/State/Zipcode | Phone Number | | Organization | | | | + +---------+ + + | EXTERNAL LAB | | | | + +---------+ + + External Lab: eGFR (08/05/2014) + +-------+ + + + | Component | Value | Ref Range | Performed | Pathologist | | | | | At | Signature | + +-------+ + + + | eGFR, | 95 | 60 - 9,999 | EXTERNAL | | | External | | | LAB | | + +-------+ + + + + + | Specimen | + + | Blood specimen | | (specimen) | + + + + | Resulting Agency Comment | + + | [facility] | + + + +---------+ + + | Performing | Address | City/State/Zipcode | Phone Number | | Organization | | | | + +---------+ + + | EXTERNAL LAB | | | | + +---------+ + + External Lab: Creatinine (08/05/2014) + +-------+ + + + | Component | Value | Ref Range | Performed | Pathologist | | | | | At | Signature | + +-------+ + + + | Creatinine, | 0.6 | 0.5 - 1.5 | EXTERNAL | | | External | | | LAB | | + +-------+ + + + + + | Specimen | + + | Blood specimen | | (specimen) | + + + + | Resulting Agency Comment | + + | [facility] | + + + +---------+ + + | Performing | Address | City/State/Zipcode | Phone Number | | Organization | | | | + +---------+ + + | EXTERNAL LAB | | | | + +---------+ + + documented in this encounter Visit Diagnoses Not on filedocumented in this encounter"
--- OUTSIDE RECORDS SUMMARY | ~2019-10-22 | XMS | Encounter Summary ---
Demographics + + + | Address | [address] | | | [place] [address] | + + + | Home Phone | | + + + | Preferred Language | Unknown | + + + | Marital Status | | + + + | Alevism Affiliation | 1077 | + + + | Race | Unknown | + + + | Ethnic Group | Unknown | + + + Author + + + | Author | [facility] | | | and [place] | + + + | Organization | [facility] | | | and [place] [...] [place] | | | | | [address] | | + + + + + | Han Holt | ECON | [address] | | | | | [place] | | | | | [address] | | + + + + + Care Team Providers + +------+ + | Care Supervisor Policy Change Clerks Name | Role | Phone | + +------+ + | Alfred Jones MD | PCP | | + +------+ + Reason for Visit +--------+ + | Reason | Comments | +--------+ + | LABS | Annual labs | +--------+ + Encounter Details +--------+ + + + + | Date | Type | Department | Care Team | Description | +--------+ + + + + | 08/03/ | Telephone | [facility] | Dada Grant, | LABS (Annual labs) | | 2014 | | CARDIOLOGY [address] [place] | | | | | [place], | [place], | | | | | [place] [address] | [place] [address] | | | | | [phone] | [phone] | | | | | | | [...]
--- OUTSIDE RECORDS SUMMARY | ~2019-10-22 | XMS | Encounter Summary ---
Demographics + + + | Address | [address] | | | [place] [address] | + + + | Home Phone [...] + | Author | [facility] | | | and [place] | + + + | Organization | [facility] | | | and [...] [place] | | | | | [address] | | + + + + + | Han Holt | ECON | [address] | | | | | [place] | | | | | [address] | | + + + + + Care Team Providers + +------+ + | Care Satellite Manager Name | Role | Phone | [...] + + | 08/29/ | Telephone | [facility] | Yair, | Lab Order (due for | | 2016 | | CARDIOLOGY [address] | Sveta, MOP WORKER [address] | [facility] ) | | | | [place], | [place], | | | | | [place] [address] | [place] [address] | | | | | [phone] | [phone] | | | | | | | [...]
--- OUTSIDE RECORDS SUMMARY | ~2019-10-22 | XMS | Encounter Summary ---
Demographics + + + | Address | [address] | | | [place] [address] | + + + | Home Phone | | + + + | Preferred Language | Unknown | + + + | Marital Status | | + + + | Faith Affiliation | 1077 | + + + | Race | Unknown | + + + | Ethnic Group | Unknown | + + + Author + + + | Author | [facility] | | | and [place] | + + + | Organization | [facility] | | | and [place] [...] [place] | | | | | [address] | | + + + + + | Han Holt | ECON | [address] | | | | | [place] | | | | | [address] | | + + + + + Care Team Providers + +------+ + | Care Rehab Therapy Manager Name | Role | Phone | + +------+ + PCP | Unavailable | + +------+ + Encounter Details +--------+ + + + + | Date | Type | Department | Care Team | Description | +--------+ + + + + | 04/01/ | Hospital | [facility] | Dada Grant, | | | 2010 | Encounter | MED CTR XRAY [address] | MD [address] | | | | | [address] [place] | [address] [place], | | | | | [place] [address] | [place] [address] | | | | | [phone] | [phone] | | | | | | | [...] + + documented as of this encounter Progress Notes Dada Grant MD - 04/01/2011 8:44 AM PDTDATE: 04/01/11 [id number] EXPRESS EVENT MONITOR The patient wore the [employer] express event monitor from 04/01/2011 until 04/22/2011 . Baseline EKG revealed underlying a normal sinus rhythm, with a heart rate of 60 beats per minute. On 04/02/2011, the patient reports symptoms of skipped beats. EKG revealed underlying a no rmal sinus rhythm, with occasional premature atrial contractions. There is also evidence of a paroxysmal atrial tachycardia, with a heart rate of 150 beats per minute. In conclusion, the patient reports symptoms of skipped beats, irregular heartbeats. EKG re vealed underlying normal sinus rhythm, with occasional premature atrial contractions, and o ne run of a paroxysmal atrial fibrillation, with the rapid ventricular response, heart rate of 150 beats per minute. DICTATED BY: Dada Grant MD, [facility] Cardiology JOB #: [id number] EXT JOB #:[id number] EDITED: 2010 13:32 edited: 05/08/11 ld <Electronically Signed by Dada Grant MD [facility]> 05/22/11 1118 documented in this encounter Plan of Treatment Not on filedocumented as of this encounter Procedures + +--------+ + + + | Procedure Name | Priori | Date/Time | Associated Diagnosis | Comments | | | ty | | | | + +--------+ + + + | ECHO COMPLETE | | 04/01/2011 | | Results for this | | | | 8:44 AM | | procedure are in the | | | | PDT | | results section. | + +--------+ + + + | NM MYOCARDIAL | | 04/01/2011 | | Results for this | | PERFUSION MULT SPECT | | 8:44 AM | | procedure are in the | | | | PDT | | results section. | + +--------+ + + + documented in this encounter Results ECHO Complete (04/01/2011 8:44 AM PDT) + + | Specimen | + + | | + + + + + | Narrative | Performed At | + + + | [facility] | C[facility]SIE [facility] | | [address] | [facility] | | E C H O C A R D | DIAG IMG | | I O G R A P H Y R E P O R T HEIGHT: 5'3" | | | WEIGHT: 125# TUBE BENDER: TD REFERRING DR: DORIS | | | READING DR: DORIS DIAGNOSIS: A-FIB, CP, PALP | | | | | | M E A S U R E M E N T S | | | Aortic Root: 28 mm LV Diameter-diastole: | | | 45 mm Aortic Cusp Sep: 17 mm LV | | | Diameter--systole: 27 mm LA: 30 mm | | | Fractional Shortenin % IVS--diastole: | | | 8 mm PFV Aortic Valve: IVS--systole: | | | 11 mm MPG Mitral Valve: mmHg | | | LVPW--diastole: 7 mm PFV TR Jet: | | | 2.86 m/s LVPW--systole: 11 mm RA/RV PPG: | | | 32.7 mmHg | | | | | | ECHOCARDIOGRAPHY, 04/01/2011 INDICATIONS FOR PROCEDURE: | | | Atrial fibrillation, palpitations and arrythmia. TECHNICAL DATA: | | | The quality of the study is good. This is a 2-D echo / M-mode / | | | Doppler / color Doppler study. FINDINGS: Left atrial size is | | | normal. Left ventricular size is normal with normal wall thickness | | | and normal left ventricular systolic function. LVEF is 75 %. | | | Aortic root is normal. Right atrial size is normal. Right | | | ventricular size is normal with normal wall thickness and normal | | | right ventricular systolic function. Pericardium is normal. | | | Pulmonary artery is normal. Aortic valve is trileaflet and opens | | | normally. Mitral valve is normal. Pulmonic valve is normal. | | | Tricuspid valve is normal. IVC is normal. There is a trace | | | mitral valve regurgitation. There is a mild tricuspid valve | | | regurgitation. There is a grade 1 left ventricular diastolic | | | dysfunction. There is a mild pulmonary hypertension with a peak | | | systolic pressure of 40 mmHg. IMPRESSION: 1. A NORMAL LEFT | | | VENTRICULAR SIZE WALL THICKNESS AND MOTION. PRESERVED LEFT | | | VENTRICULAR SYSTOLIC FUNCTION. LVEF IS 75%. 2. A GRADE 1 LEFT | | | VENTRICULAR DIASTOLIC DYSFUNCTION. 3. A TRACE MITRAL VALVE | | | REGURGITATION. 4. A MILD TRICUSPID VALVE REGURGITATION. 5. | | | MILD PULMONARY HYPERTENSION WITH A PEAK SYSTOLIC PRESSURE OF 40 | | | MMHG. Dictated Date/Time: 04/02/2011 06:07 Transcribed | | | Date/Time: 04/02/2011 06:28 Supervisor Hand Silvering: | | | <Electronically Signed by Dada Grant MD [facility]> 04/02/11 | | | 1224 | | + + + + + | Procedure Note | + + | Kulwinder Florence - 07/23/2013 4:02 PM [facility] | | Diagnostic Imaging Department | | [address] [facility] | | | | | | | | E C H O C A R D I O G R A P H Y R E P O R T | | | | | | HEIGHT: 5'3" WEIGHT: 125# TUBE BENDER: TD | | REFERRING DR: DORIS TRIPLETT DR: DORIS | | | | DIAGNOSIS: A-FIB, CP, PALP | | | | | | M E A S U R E M E N T S | | | | Aortic Root: 28 mm LV Diameter-diastole: 45 mm | | Aortic Cusp Sep: 17 mm LV Diameter--systole: 27 mm | | LA: 30 mm Fractional Shortenin % | | IVS--diastole: 8 mm PFV Aortic Valve: | | IVS--systole: 11 mm MPG Mitral Valve: mmHg | | LVPW--diastole: 7 mm PFV TR Jet: 2.86 m/s | | LVPW--systole: 11 mm RA/RV PP.7 mmHg | | | | | | | | ECHOCARDIOGRAPHY, 04/01/2011 | | | | INDICATIONS FOR PROCEDURE: Atrial fibrillation, palpitations and arrythmia. | | | | TECHNICAL DATA: The quality of the study is good. This is a 2-D echo / M-mode | | / Doppler / color Doppler study. | | | | FINDINGS: Left atrial size is normal. Left ventricular size is normal with | | normal wall thickness and normal left ventricular systolic function. LVEF is 75 | | %. Aortic root is normal. Right atrial size is normal. Right ventricular | | size is normal with normal wall thickness and normal right ventricular systolic | | function. Pericardium is normal. Pulmonary artery is normal. Aortic valve is | | trileaflet and opens normally. Mitral valve is normal. Pulmonic valve is | | normal. Tricuspid valve is normal. IVC is normal. There is a trace mitral | | valve regurgitation. There is a mild tricuspid valve regurgitation. There is | | a grade 1 left ventricular diastolic dysfunction. There is a mild pulmonary | | hypertension with a peak systolic pressure of 40 mmHg. | | | | IMPRESSION: | | 1. A NORMAL LEFT VENTRICULAR SIZE WALL THICKNESS AND MOTION. PRESERVED LEFT | | VENTRICULAR SYSTOLIC FUNCTION. LVEF IS 75%. | | | | 2. A GRADE 1 LEFT VENTRICULAR DIASTOLIC DYSFUNCTION. | | | | 3. A TRACE MITRAL VALVE REGURGITATION. | | | | 4. A MILD TRICUSPID VALVE REGURGITATION. | | | | 5. MILD PULMONARY HYPERTENSION WITH A PEAK SYSTOLIC PRESSURE OF 40 MMHG. | | | | Dictated Date/Time: 04/02/2011 06:07 | | Transcribed Date/Time: 04/02/2011 06:28 | | Supervisor Hand Silvering: | | <Electronically Signed by Dada Grant MD [facility]> 04/02/11 1224 | + + + +---------+ + + | Performing | Address | City/State/Zipcode | Phone Number | | Organization | | | | + +---------+ + + | [facility] [place] | | | | | [facility] | | | | + +---------+ + + NM Myocardial Perfusion Mult SPECT (04/01/2011 8:44 AM PDT) + + | Specimen | + + | | + + + + + | Narrative | Performed At | + + + | [facility] | [facility] | | [address] | [facility] | | REGADENOSON STRESS TEST, | DIAG IMG | | 04/01/2011 PROCEDURE: In the supine position, 0.4 mg of | | | Regadenoson was transfused intravenously with 10 seconds . Blood | | | pressure and EKG were monitored every 1 minute. 5 mL of normal | | | saline was used to flush the IV line. Twenty seconds after the | | | injection of the Regadenoson, 35 mCi of the sestamibi was given int | | | ravenously. Patient was taken to the nuclear medicine department. | | | SPECT myocardial perfusion imaging was acquired with wall motion | | | analysis. Rest imaging was performed using a 10.8 mCi of sestamibi | | | intr avenous injection. Repeat SPECT myocardial perfusion imaging was | | | acquired with wall motion analysis. HEMODYNAMICS: Heart rate | | | baseline 59 beats per minute, peak 83 beats per minute. Blood pressure | | | basel ine 141/69 mmHg, peak 125/39 mmHg. EKG baseline underlying a | | | sinus bradycardia, incomplete right bund le branch block. Peak | | | unchanged. SIDE EFFECTS: None. ARRHYTHMIA: None. | | | REGADENOSON SESTAMIBI MYOCARDIAL PERFUSION IMAGING RESULT The | | | Regadenoson sestamibi tomographic images, reviewed without the | | | attenuation compensation resolutio n, revealed a normal myocardial | | | perfusion pattern as seen in short axis, vertical long axis, and hori | | | zontal long axis projections. The left ventricular cavity is normal. | | | The rest imaging is also normal. Gated SPECT reveals a normal | | | left ventricular wall thickness and motion. Preserved left | | | ventricular systolic function. LVEF by gated SPECT is 84%. | | | IMPRESSION: 1. REGADENOSON EKG IS NEGATIVE. 2. A NORMAL | | | REGADENOSON SESTAMIBI MYOCARDIAL PERFUSION IMAGING STUDY. NORMAL LEFT | | | VENTRICULAR SIZE AN D WALL THICKNESS. THE LEFT VENTRICULAR SYSTOLIC | | | FUNCTION IS HYPERDYNAMIC. LVEF BY GATED SPECT IS 84 %. | | | Dictated Date/Time: 04/01/2011 15:23 Transcribed Date/Time: | | | 04/01/2011 15:28 Supervisor Hand Silvering: <Electronically Signed | | | by Dada Grant MD [facility]> 04/02/11 0617 | | + + + + + | Procedure Note | + + | Naman, Rad Conversion - 07/23/2013 4:02 PM [facility] | | Diagnostic Imaging Department [address] [place] [address] | | REGADENOSON STRESS TEST, 04/01/2011 PROCEDURE: In the | | supine position, 0.4 mg of Regadenoson was transfused intravenously with 10 seconds. | | Blood pressure and EKG were monitored every 1 minute. 5 mL of normal saline was used to | | flush the IV line. Twenty seconds after the injection of the Regadenoson, 35 mCi of the | | sestamibi was given intravenously. Patient was taken to the nuclear medicine | | department. SPECT myocardial perfusion imaging was acquired with wall motion analysis. | | Rest imaging was performed using a 10.8 mCi of sestamibi intravenous injection. Repeat | | SPECT myocardial perfusion imaging was acquired with wall motion analysis. | | HEMODYNAMICS: Heart rate baseline 59 beats per minute, peak 83 beats per minute. Blood | | pressure baseline 141/69 mmHg, peak 125/39 mmHg. EKG baseline underlying a sinus | | bradycardia, incomplete right bundle branch block. Peak unchanged. SIDE EFFECTS: None. | | ARRHYTHMIA: None. REGADENOSON SESTAMIBI MYOCARDIAL PERFUSION IMAGING RESULT The | | Regadenoson sestamibi tomographic images, reviewed without the attenuation compensation | | resolution, revealed a normal myocardial perfusion pattern as seen in short axis, | | vertical long axis, and horizontal long axis projections. The left ventricular cavity is | | normal. The rest imaging is also normal. Gated SPECT reveals a normal left ventricular | | wall thickness and motion. Preserved left ventricular systolic function. LVEF by gated | | SPECT is 84%. IMPRESSION:1. REGADENOSON EKG IS NEGATIVE. 2. A NORMAL REGADENOSON | | SESTAMIBI MYOCARDIAL PERFUSION IMAGING STUDY. NORMAL LEFT VENTRICULAR SIZE AND WALL | | THICKNESS. THE LEFT VENTRICULAR SYSTOLIC FUNCTION IS HYPERDYNAMIC. LVEF BY GATED SPECT | | IS 84%. Dictated Date/Time: 04/01/2011 15:23Transcribed Date/Time: 04/01/2011 | | 15:28Transcriptionist: <Electronically Signed by Dada Grant MD [facility]> | | 04/02/11 0617 | | | |The Regadenoson sestamibi tomographic images, reviewed without the attenuation compensation resolutio | |n, revealed a normal myocardial perfusion pattern as seen in short axis, vertical long axis , and hori | |zontal long axis projections. The left ventricular cavity is normal. The rest imaging is al so normal. | | | | | |Gated SPECT reveals a normal left ventricular wall thickness and motion. Preserved left ve ntricular | |systolic function. LVEF by gated SPECT is 84%. | | | |IMPRESSION: | |1. REGADENOSON EKG IS NEGATIVE. | | | |2. A NORMAL REGADENOSON SESTAMIBI MYOCARDIAL PERFUSION IMAGING STUDY. NORMAL LEFT VENTRICUL AR SIZE AN | |D WALL THICKNESS. THE LEFT VENTRICULAR SYSTOLIC FUNCTION IS HYPERDYNAMIC. LVEF BY GATED S PECT IS 84 | |%. | | | |Dictated Date/Time: 04/01/2011 15:23 | |Transcribed Date/Time: 04/01/2011 15:28 | |Supervisor Hand Silvering: | |<Electronically Signed by Dada Grant MD [facility]> 04/02/11 0617 | + + + +---------+ + + | Performing | Address | City/State/Zipcode | Phone Number | | Organization | | | | + +---------+ + + | [facility] | | | | | [facility] | | | | + +---------+ + + documented in this encounter Visit Diagnoses Not on filedocumented in this encounter
--- OUTSIDE RECORDS SUMMARY | ~2019-10-22 | XMS | Encounter Summary ---
Demographics + + + | Address | [address] | | | [place] [address] | + + + | Home Phone | | + + + | Preferred Language | Unknown | + + + | Marital Status | | + + + | Mandaen Affiliation | 1077 | + + + | Race | Unknown | + + + | Ethnic Group | Unknown | + + + Author + + + | Author | [facility] | | | and [place] | + + + | Organization | [facility] | | | and [...] [place] | | | | | [address] | | + + + + + | Han Holt | ECON | [address] | | | | | [place] | | | | | [address] | | + + + + + Care Team Providers + +------+ + | Care Medical Accounts Receivable Specialist Name | Role | Phone | + +------+ + | Alfred Jones MD | PCP | | + +------+ + Reason for Visit + + + | Reason | Comments | + + + | Annual Exam | PSTV | + + + | Atrial Fibrillation | | + + + | Palpitations | | + + + Encounter Details +--------+---------+ + + + | Date | Type | Department | Care Team | Description | +--------+---------+ + + + | 08/04/ | Office | [facility] | Dada Grant, | PSVT (paroxysmal | | 2015 | Visit | CARDIOLOGY [address] | [address] | supraventricular | | | | [place], | [place], | tachycardia) ([facility]) | | | | [place] [address] | [place] [address] | (Primary Dx); A-fib | | | | [phone] | [phone] | ([facility]); Palpitations; | | | | | | Atrial fibrillation | | | | | | ([facility]); Paroxysmal | | | | | | supraventricular | | | | | | tachycardia ([facility]) | +--------+---------+ + + + Social History [...] + + + | Blood Pressure | 120/60 | 08/04/2014 1:25 PM | left arm | | | | PST | | + + + + + | Pulse | 58 | 08/04/2014 1:25 PM | regular | | | | PST | | + + + + + | Temperature | - | - | | + + + + + | Respiratory Rate | 16 | 08/04/2014 1:25 PM | | | | | PST | | + + + + + | Oxygen Saturation | - | - | | + + + + + | Inhaled Oxygen | - | - | | | Concentration | | | | + + + + + | Weight | 53.8 kg (118 lb 11.2 | 08/04/2014 1:25 PM | | | | oz) | PST | | + + + + + | Height | 160 cm (5' 3") | 08/04/2014 1:25 PM | | | | | PST | | + + + + + | Body Mass Index | 21.03 | 08/04/2014 1:25 PM | | | | | PST | | + + + + + documented in this encounter Progress Notes Dada Grant MD - 08/04/2014 1:29 PM PSTFormatting of this note might be different f rom the original. PATIENT NAME: Nayely Holt : 1930: AGE: 84 y.o. PRIMARY CARE: Alfred Jones MD OUTPATIENT FOLLOW UP VISIT Date of Service: 08/04/2014 HISTORY OF PRESENT ILLNESS: Nayely Holt is an 84 y.o. female with a history of paroxysmal atrial fibrillation, h ypertension, anxiety disorder and hyperlipidemia. She is being seen today for a treatment of her atrial fibrillation. She was last seen on 03/09/2013 at which time anticoagulant was recommended which she reject ed the idea she wanted to take a baby aspirin. However, since then, she even takes daily as pirin as needed. 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 She stated that s he would have palpitations only when she is under emotional stress or has to use her right h and for the long period of time. Otherwise, she stays busy running her store. She denies o ther specific cardiac complaints.Today, patient is feeling good. Patient is physically acti ve and exercises regularly by. Patient doesn't exercise but enjoys. Patient also enjoys. There is no chest pain or chest discomfort both at rest and on exertion. Patient denies santos athlessness. There is no dizziness or lightheadedness. There is no ankle or leg swelling. Patient can sleep on one pillow at night without difficulty breathing. MEDICAL, SURGICAL, AND PERSONAL HISTORY Past Medical, Surgical, Family, and Social History are reviewed in EPIC. CURRENT PROBLEMS Patient Active Problem List Diagnosis VARICOSE VEIN IRRITABLE BOWEL SYNDROME, HX OF Atrial fibrillation Paroxysmal supraventricular tachycardia Palpitations Hyperlipidemia CURRENT MEDICATIONS Current Outpatient Prescriptions Medication Sig [...] malaise/fatigue and diaphoresis. HENT: Negative for congestion, ear discharge, ear pain, hearing loss, nosebleeds, sore thro at and tinnitus. Eyes: Negative for blurred vision and double vision. Respiratory: Negative for cough, shortness of breath, wheezing and stridor. Cardiovascular: Negative for chest pain, palpitations, orthopnea, claudication, leg swellin g and PND. Gastrointestinal: Negative for heartburn, nausea, vomiting, abdominal pain, diarrhea, const ipation, blood in stool and melena. Genitourinary: Negative for dysuria, urgency, frequency, hematuria and flank pain. Musculoskeletal: Positive for myalgias and falls. Negative for back pain, joint pain and ne ck pain. Skin: Negative for itching and rash. Neurological: Negative for dizziness, tingling, tremors, seizures, loss of consciousness, w eakness and headaches. Endo/Heme/Allergies: Negative for environmental allergies and polydipsia. Does not bruise/b leed easily. Psychiatric/Behavioral: Negative for memory loss. The patient is not nervous/anxious and do es not have insomnia. OBJECTIVE: PHYSICAL EXAM BP 120/60 | Pulse 58 | Resp 16 | Ht 1.6 m (5' 3") | Wt 53.842 kg (118 lb 11.2 oz) | BM I 21.03 kg/m2 Physical Exam Constitutional: She appears well-developed and well-nourished. No distress. Female individual without acute distress. Neck: Normal carotid pulses, no hepatojugular reflux and no JVD present. Carotid bruit is n ot present. Cardiovascular: Normal rate, regular rhythm, S1 normal, S2 normal, normal heart sounds, int act distal pulses and normal pulses. PMI is not displaced. Exam reveals no gallop, no S3, no S4 and no friction [...] not e xhibit a depressed mood. ECG: sinus rhythm, normal EKG LAB RESULTS: LIPID No results found for this basename: chol, trig, ldlcalc, hdl, ldl, calculated, cholhdl, ldl ex, hdlex, trigex, cholex CHEMISTRY Lab Results Component Value Date GLU 99 07/24/2013 NA 138 07/24/2013 K 4.1 07/24/2013 CL 105 07/24/2013 CO2 26 07/24/2013 CALCIUM 8.9 07/24/2013 ALKPHOS 71 12/18/2011 ASTEX 18 12/18/2011 ALTEX 15 12/18/2011 BILITOT 0.5 12/18/2011 CREA 0.65 07/24/2013 BUN 26* 07/24/2013 EGFR >60 07/24/2013 EGFREX >60 12/18/2011 CREEX 0.64 12/18/2011 HEMATOLOGY Lab Results Component Value Date WBC 4.9* 04/04/2011 WBCEX 5.0 12/18/2011 HGB 12.9 04/04/2011 HGBEX 14.0 12/18/2011 HCT 38.0* 04/04/2011 HCTEX 41.4 12/18/2011 PLT 211 04/04/2011 PLTEX 220 12/18/2011 ASSESSMENT: 1. Paroxysmal atrial fibrillation/paroxysmal supraventricular tachycardia with palpitation s: A. The echocardiogram from 04/01/11 revealed normal left ventricular size, LVEF 75%, grade 1 left ventricular diastolic dysfunction, trace MR, mild TR and mild pulmonary hypert ension, peak systolic pressure 40 mmHg. B. A normal Regadenoson SPECT MPI on 04/01/11. LVEF by gated SPECT was 84%. C. Today she is in a normal sinus rhythm. She correlates her palpitations to emotio nal stress and right hand use. Long-term anticoagulations to minimize the risk of stroke was again discussed. Mitchel 2 sc ore is 1 for advanced age. NOAC's was discussed. She was on warfarin in the past and stop ped taking it in 07/2011, and is not willing to consider anticoagulation at this time. She wants to take a baby aspirin as needed. She remains very functional. She is in class I of the [place] [employer] functional class. There is no leg swelling on the physical exam. 2. Hypertension: A. And for him and Today her blood pressure is well-controlled. 3. History of anxiety disorder. 4. History of hyperlipidemia. A. No recent lipid profile and she doesn't want to know it. PLAN: 1. Discussed loop recorder implantation to assess a potential recurrent atrial fibrillatio n. Patient wants some more time to think about it. 2. Follow up in one year. Electronically signed by: Dada Grant MD [facility] 08/04/2014 Portions of this chart may have been created with [employer] voice recognition software. Occasi onal wrong-word or sound-alike substitutions may have occurred due to the inherent ward itations of voice recognition software. Please read the chart carefully and recognize, using context, where these substitutions have occurred. documented in this encounter Plan of Treatment + +------+--------+ + + | Name | Type | Priori | Associated Diagnoses | Order Schedule | | | | ty | | | + +------+--------+ + + | ECG 12 lead | ECG | Routin | PSVT (paroxysmal | Ordered: 08/04/2014 | | | | e | supraventricular | | | | | | tachycardia) ([facility]) | | | | | | A-fib ([facility]) | | | | | | Palpitations | | + +------+--------+ + + documented as of this encounter Visit Diagnoses + + | Diagnosis | + + | PSVT (paroxysmal supraventricular tachycardia) ([facility]) - Primary Paroxysmal | | supraventricular tachycardia | + + | A-fib ([facility]) Atrial fibrillation | + + | Palpitations | + + | Atrial fibrillation ([facility]CC) Atrial fibrillation | + + | Paroxysmal supraventricular tachycardia (HCC) Paroxysmal supraventricular tachycardia | + + documented in this encounter
--- OUTSIDE RECORDS SUMMARY | ~2019-10-22 | XMS | Encounter Summary ---
Demographics + + + | Address | [address] | | | [place] [address] | + + + | Home Phone | | + + + | Preferred Language | Unknown | + + + | Marital Status | | + + + | Lutheran Affiliation | 1077 | + + + | Race | Unknown | + + + | Ethnic Group | Unknown | + + + Author + + + | Author | [facility] | | | and [place] | + + + | Organization | [facility] | | [...] [place] | | | | | [address] | | + + + + + | Han Holt | ECON | [address] | | | | | [place] | | | | | [address] | | + + + + + Care Team Providers + +------+ + | Care Curtains And Draperies Salesperson Name | Role | Phone | + +------+ + PCP | Unavailable | + +------+ + Encounter Details +--------+ + + + + | Date | Type | Department | Care Team | Description | +--------+ + + + + | 04/02/ | Hospital | [facility] | | | | 2010 - | Encounter | [facility] | | | | | | [address] | | | | 04/04/ | | [place] [id number] | | | | 2010 | | [phone] | | | +--------+ + + + [...] documented as of this encounter Discharge Summaries Aly Toribio MD - 04/02/2011 5:48 PM PDTADMISSION DATE: 04/02/2011 DISCHARGE DATE: 04/04/2011 HOSPITALIST DISCHARGE SUMMARY PRIMARY CARE PHYSICIAN: Alfred Jones MD FITNESS PLAN COORDINATOR: Dada Grant MD, [facility] DISCHARGE DIAGNOSES 1. PAROXYSMAL ATRIAL FIBRILLATION. 2. TRANSIENT SINUS NODE PAUSE. 3. 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 4. ANXIETY. DISCHARGE MEDICATIONS 1. Sotalol 40 mg b.i.d. 2. Warfarin 5 mg daily. 3. Ecotrin 81 mg daily. 4. Neosporin ointment t.i.d. ALLERGIES: NO KNOWN DRUG ALLERGIES. HOSPITAL COURSE: An 80-year-old female came in with long history of paroxysmal at [facility]. She had been symptomatic recently with weakness, dyspnea, and palpitati ons. She had stress t est, including drug stress nuclear, and echocardiogram, which were laura th negative on the day prior to admission. She had held her atenolol for stress test, and t mike that evening taken the atenolol, but d eveloped tachy arrhythmia. [facility], they gave her Diltiazem IV and noted 2 to 3-second sinus pause. With concerns that she may require emergent pacemaker, she was transferred t o [facility]. The patient's rhythm was reviewed and I started her on sotalol 80 mg p.o. She converted to a sinus rh ythm. Her baseline P-R interval of 210 msec increased to 250. The QT interval re mained normal, and no t worrisome for the rate. The patient had brief run of atrial fibrill ation on the day of admission, a bout 1 hour after taking the first dose of sotalol. I then switched her to 40 mg of Sotalol twice a d ay, and she has remained in sinus rhythm, with heart rate from 50 to 70, and no atrial ectopy. The pa naye states she is feeling well. Th e patient will be discharged home at this time, with the initiati on of Coumadin, which nee ds to be followed by her local physician. INR daily with results to Dr. Greg Jones. Follow up with Dr. Greg Jones in one week. Follow up with Chris Grant on 04/16/2011, at 12:15, phone number [phone]. Heart-heal thy diet. Activity as tolerated. Return for uncontrolled palpitations or chest pain. For pa lpitations, despite, your curre nt dose of sotalol, you can take one extra dose of 40 mg so talol. If this does not provide relief wit hin 2 hours, call your physician. Thirty-five minutes spent in evaluation and coordination of care for this patient. DICTATED BY: Aly Toribio MD Hospitalist JOB #: [id number] EXT JOB #:[id number] cc: MD Dada Ochoa MD, [facility] <Electronically Signed by Aly Toribio MD> 04/17/112034 documented in this encounter Plan of Treatment Not on filedocumented as of this encounter Procedures + +--------+ + + + | Procedure Name | Priori | Date/Time | Associated Diagnosis | Comments | | | ty | | | | + +--------+ + + + | PROTIME INR | Routin | 04/04/2011 | | Results for this | | | e | 4:12 AM | | procedure are in the | | | | PDT | | results section. | + +--------+ + + + | CBC NO DIFFERENTIAL | Routin | 04/04/2011 | | Results for this | | | e | 4:12 AM | | procedure are in the | | | | PDT | | results section. | + +--------+ + + + | PROTIME INR | Routin | 04/03/2011 | | Results for this | | | e | 8:26 AM | | procedure are in the | | | | PDT | | results section. | + +--------+ + + + | CBC NO DIFFERENTIAL | Routin | 04/03/2011 | | Results for this | | | e | 8:26 AM | | procedure are in the | | | | PDT | | results section. | + +--------+ + + + | TSH | Routin | 04/03/2011 | | Results for this | | | e | 3:48 AM | | procedure are in the | | | | PDT | | results section. | + +--------+ + + + | MAGNESIUM | Routin | 04/03/2011 | | Results for this | | | e | 3:48 AM | | procedure are in the | | | | PDT | | results section. | + +--------+ + + + | BASIC METABOLIC | Routin | 04/03/2011 | | Results for this | | PANEL | e | 3:48 AM | | procedure are in the | | | | PDT | | results section. | + +--------+ + + + | CULTURE, MRSA | Routin | 04/02/2011 | | | | | e | 10:33 PM | | | | | | PDT | | | + +--------+ + + + | XR CHEST AP PORTABLE | | 04/02/2011 | | Results for this | | | | 5:48 PM | | procedure are in the | | | | PDT | | results section. | + +--------+ + + + documented in this encounter Results Ceeime INR (04/04/2011 4:12 AM PDT) + + + + + + | Component | Value | Ref Range | Performed | Pathologist | | | | | At | Signature | + + + + + + | Prothrombin | 14.7 (H) | 11.3 - 13.9 | [facility] | | | Time | | seconds | [facility] | | | | | | MEDICAL | | | | | | CENTER - | | | | | | LABORATORY | | + + + + + + | INR | 1.2 (H)Comment: INR: | 0.9 - 1.1 | [facility] | | | | USUAL ORAL | | [facility] | | | | ANTICOAGULATION RANGE | | MEDICAL | | | | 2.0-3.0 | | CENTER - | | | | HIGH LEVEL ORAL | | LABORATORY | | | | ANTICOAGULATION RANGE | | | | | | 2.5-3.5 | | | | + + + + + + + + | Specimen | + + | | + + + + + + + | Performing | Address | City/State/Zipcode | Phone Number | | Organization | | | | + + + + + | [facility] | [address] | [place], [place] | [phone] | | [facility] | | [address] | | | - LABORATORY | | | | + + + + + | [facility] | [address] | [place], [place] | | | [facility] | | [id number] [place] [address] | | | - LABORATORY | | | | + + + + + CBC no Differential (04/04/2011 4:12 AM PDT) + + + + + + | Component | Value | Ref Range | Performed | Pathologist | | | | | At | Signature | + + + + + + | WBC | 4.9 (A) | 4.0 - 11.0 K/uL | [facility] | | | | | | [facility] | | | | | | MEDICAL | | | | | | CENTER - | | | | | | LABORATORY | | + + + + + + | RBC | 4.31 | 3.70 - 5.20 | [facility] | | | | | M/uL | [facility] | | | | | | MEDICAL | | | | | | CENTER - | | | | | | LABORATORY | | + + + + + + | Hemoglobin | 12.9 | 11.5 - 16.0 | [facility] | | | | | gm/dL | [facility] | | | | | | MEDICAL | | | | | | CENTER - | | | | | | LABORATORY | | + + + + + + | Hematocrit | 38.0 (A) | 34.0 - 47.0 % | [facility] | | | | | | [facility] | | | | | | MEDICAL | | | | | | CENTER - | | | | | | LABORATORY | | + + + + + + | MCV | 88.0 | 83.0 - 101.0 fL | [facility] | | | | | | [facility] | | | | | | MEDICAL | | | | | | CENTER - | | | | | | LABORATORY | | + + + + + + | MCH | 29.9 | 28.0 - 35.0 pg | [facility] | | | | | | [facility] | | | | | | MEDICAL | | | | | | CENTER - | | | | | | LABORATORY | | + + + + + + | MCHC | 34.0 | 32.0 - 36.0 | [facility] | | | | | g/dL | [facility] | | | | | | MEDICAL | | | | | | CENTER - | | | | | | LABORATORY | | + + + + + + | RDW-CV | 13.9 | <15.0 % | [facility] | | | | | | [facility] | | | | | | MEDICAL | | | | | | CENTER - | | | | | | LABORATORY | | + + + + + + | Platelet | 211 | 140 - 440 K/uL | [facility] | | | Count | | | [facility] | | [...] + | [facility] | [address] | [place] | [phone] | | [facility] | | [address] | | | - LABORATORY | | | | + + + + + | [facility] | [address] | [place], [place] | | | [facility] | | [address] | | | - LABORATORY | | | | + + + + + Protime INR (04/03/2011 8:26 AM PDT) + + + + + + | Component | Value | Ref Range | Performed | Pathologist | | | | | At | Signature | + + + + + + | Prothrombin | 15.0 (H) | 11.3 - 13.9 | [facility] | | | Time | | seconds | [facility] | | | | | | MEDICAL | | | | | | CENTER - | | | | | | LABORATORY | | + + + + + + | INR | 1.2 (H)Comment: INR: | 0.9 - 1.1 | [facility] | | | | USUAL ORAL | | [facility] | | | | ANTICOAGULATION RANGE | | MEDICAL | | | | 2.0-3.0 | | CENTER - | | | | HIGH LEVEL ORAL | | LABORATORY | | | | ANTICOAGULATION RANGE | | | | | | 2.5-3.5 | | | | + + + + + + + + | Specimen | + + | | + + + + + + + | Performing | Address | City/State/Zipcode | Phone Number | | Organization | | | | + + + + + | [facility] | [address] | [place] | [phone] | | [facility] | | [address] | | | - LABORATORY | | | | + + + + + | [facility] | [address] | [place], [place] | | | [facility] | | [address] | | | - LABORATORY | | | | + + + + + CBC no Differential (04/03/2011 8:26 AM PDT) + +-------+ + + + | Component | Value | Ref Range | Performed | Pathologist | | | | | At | Signature | + +-------+ + + + | WBC | 4.4 | 4.0 - 11.0 K/uL | [facility] | | | | | | [facility] | | | | | | MEDICAL | | | | | | CENTER - | | | | | | LABORATORY | | + +-------+ + + + | RBC | 4.69 | 3.70 - 5.20 | [facility] | | | | | M/uL | [facility] | | | | | | MEDICAL | | | | | | CENTER - | | | | | | LABORATORY | | + +-------+ + + + | Hemoglobin | 13.8 | 11.5 - 16.0 | [facility] | | | | | gm/dL | [facility] | | | | | | MEDICAL | | | | | | CENTER - | | | | | | LABORATORY | | + +-------+ + + + | Hematocrit | 41.2 | 34.0 - 47.0 % | [facility] | | | | | | [facility] | | | | | | MEDICAL | | | | | | CENTER - | | | | | | LABORATORY | | + +-------+ + + + | MCV | 88.0 | 83.0 - 101.0 fL | [facility] | | | | | | [facility] | | | | | | MEDICAL | | | | | | CENTER - | | | | | | LABORATORY | | + +-------+ + + + | MCH | 29.5 | 28.0 - 35.0 pg | [facility] | | | | | | [facility] | | | | | | MEDICAL | | | | | | CENTER - | | | | | | LABORATORY | | + +-------+ + + + | MCHC | 33.5 | 32.0 - 36.0 | [facility] | | | | | g/dL | [facility] | | | | | | MEDICAL | | | | | | CENTER - | | | | | | LABORATORY | | + +-------+ + + + | RDW-CV | 14.1 | <15.0 % | [facility] | | | | | | [facility] | | | | | | MEDICAL | | | | | | CENTER - | | | | | | LABORATORY | | + +-------+ + + + | Platelet | 224 | 140 - 440 K/uL | [facility] | | | Count | | | [facility] | | | | | | MEDICAL | | | | | | CENTER - | | | | | | LABORATORY | | + +-------+ + + + + + | Specimen | + + | | + + + + + + + | Performing | Address | City/[facility]/Zipcode | Phone Number | | Organization | | | | + + + + + | [facility] | [address] | [place], [place] | [phone] | | [facility] | | [address] | | | - LABORATORY | | | | + + + + + | [facility] | [address] | [place], [place] | | | [facility] | | [address], [facility] | | | - LABORATORY | | | | + + + + + Basic Metabolic Panel (04/03/2011 3:48 AM PDT) + + + + + + | Component | Value | Ref Range | Performed | Pathologist | | | | | At | Signature | + + + + + + | Glucose | 97 | 70 - 109 mg/dL | [facility] | | | | | | [facility] | | | | | | MEDICAL | | | | | | CENTER - | | | | | | LABORATORY | | + + + + + + | Calcium | 9.0 | 8.3 - 10.5 | [facility] | | | | | mg/dL | [facility] | | | | | | MEDICAL | | | | | | CENTER - | | | | | | LABORATORY | | + + + + + + | BUN | 17 | 7 - 18 mg/dL | [facility] | | | | | | [facility] | | | | | | MEDICAL | | | | | | CENTER - | | | | | | LABORATORY | | + + + + + + | Creatinine | 0.67 | 0.60 - 1.30 | [facility] | | | | | mg/dL | [facility] | | | | | | MEDICAL | | | | | | CENTER - | | | | | | LABORATORY | | + + + + + + | Estimated | >60Comment: For | >60 mL/min/A | [facility] | | | GFR | -Americans, | | [facility] | | | | please multiply the [...] + + + + | BUN/Creatin | 25.4 (H) | 12 - 20 | [facility] [...] + + + + | K | 4.4 | 3.5 - 5.1 mEq/l | [facility] | | | | | | [facility] | | | | | | MEDICAL | | | | | | CENTER - | | | | | | LABORATORY | | + + + + + + | Cl | 102 | 98 - 109 mEq/l | [facility] | | | | | | [facility] | | | | | | MEDICAL | | | | | | CENTER - | | | | | | LABORATORY | | + + + + + + | CO2 | 25 | 24 - 31 mEq/L | [facility] | | | | | | [facility] | | | | | | MEDICAL | | | | | | CENTER - | | | | | | LABORATORY | | + + + + + + | Anion Gap | 15.4 | 6.0 - 17.0 | [facility] | [...] + | [facility] | [address] | [place], [place] | [phone] | | [facility] | | [address] | | | - LABORATORY | | | | + + + + + | [facility] | [address] | [place], [place] | | | [facility] | | [address], [facility] | | | - LABORATORY | | | | + + + + + Magnesium (04/03/2011 3:48 AM PDT) + +---------+ + + + | Component | Value | Ref Range | Performed | Pathologist | | | | | At | Signature | + +---------+ + + + | Magnesium | 2.6 (H) | 1.8 - 2.5 mg/dL | [facility] | | | | | | [facility] | | | | | | MEDICAL | | | | | | CENTER - | | | | | | LABORATORY | | + +---------+ + + + + + | Specimen | + + | | + + + + + + + | Performing | Address | City/State/Zipcode | Phone Number | | Organization | | | | + + + + + | [facility] | [address] | [place] | [phone] | | [facility] | | [address] | | | - LABORATORY | | | | + + + + + | [facility] | [address] | [place], [place] | | | [facility] | | [address], [facility] | | | - LABORATORY | | | | + + + + + TSH (04/03/2011 3:48 AM PDT) + + + + + + | Component | Value | Ref Range | Performed | Pathologist | | | | | At | Signature | + + + + + + | TSH | 1.48Comment: Testing | 0.34 - 5.60 | [facility] | | | | performed on the Leticia | uIU/mL | [facility] | | | | [facility] | | MEDICAL | | | | Analyzer. | | CENTER - | | | | | | LABORATORY | | + + + + + + + + | Specimen | + + | | + + + + + + + | Performing | Address | City/State/Zipcode | Phone Number | | Organization | | | | + + + + + | [facility] | [address] | [place], [place] | [phone] | | [facility] | | [address] | | | - LABORATORY | | | | + + + + + | [facility] | [address] | [place], [place] | | | [facility] | | [id number] [place] [address] | | | - LABORATORY | | | | + + + + + Culture, MRSA (04/02/2011 10:33 PM PDT) + + | Specimen | + + | | + + + + + + + | Performing | Address | City/State/Zipcode | Phone Number | | Organization | | | | + + + + + | [facility] | [address] | [place] | [phone] | | [facility] | | [address] | | | - LABORATORY | | | | + + + + + XR Chest AP Portable (04/02/2011 5:48 PM PDT) + + | Specimen | + + | | + + + + + | Narrative | Performed At | + + + | [facility] Diagnostic Imaging Department | [facility] | | [address] [facility] | [facility] | | PORTABLE CHEST, SINGLE AP VIEW - | DIAG IMG | | 1900 HOURS, 04/02/2011 CLINICAL HISTORY: Atrial fibrillation. | | | FINDINGS: Surgical clips are noted in the right upper quadrant. | | | There are monitoring leads overlyin g the chest obscuring detail. | | | No definite acute cardiopulmonary process is evident. There is no | | | hea rt failure. There is no cardiomegaly or specific chamber | | | enlargement. Upper lobe vessels are normal in caliber. | | | IMPRESSION: NEGATIVE OF ACUTE CARDIOPULMONARY DISEASE. Dictated | | | Date/Time: 04/03/2011 08:15 Transcribed Date/Time: 04/03/2011 | | | 08:18 Freight Inspector: ISSAC <Electronically Signed by João Lindo | | | MD Jacek> 04/03/11 1649 | | + + + + + | Procedure Note | + + | Naman, Rad Conversion - 07/23/2013 4:03 PM [facility] | | Diagnostic Imaging Department [address] [place] [address] | | PORTABLE CHEST, SINGLE AP VIEW - 1900 HOURS, 04/02/2011 | | CLINICAL HISTORY: Atrial fibrillation. FINDINGS: Surgical clips are noted in the | | right upper quadrant. There are monitoring leads overlying the chest obscuring detail. | | No definite acute cardiopulmonary process is evident. There is no heart failure. | | There is no cardiomegaly or specific chamber enlargement. Upper lobe vessels are normal | | in caliber. IMPRESSION: NEGATIVE OF ACUTE CARDIOPULMONARY DISEASE. Dictated | | Date/Time: 04/03/2011 08:15Transcribed Date/Time: 04/03/2011 08:18Transcriptionist: | | <Electronically Signed by João Read MD> 04/03/11 5898 | |FINDINGS: Surgical clips are noted in the right upper quadrant. There are monitoring lead s overlyin | |g the chest obscuring detail. No definite acute cardiopulmonary process is evident. There is no hea | |rt failure. There is no cardiomegaly or specific chamber enlargement. Upper lobe vessels are normal | | in caliber. | | | |IMPRESSION: NEGATIVE OF ACUTE CARDIOPULMONARY DISEASE. | | | |Dictated Date/Time: 04/03/2011 08:15 | |Transcribed Date/Time: 04/03/2011 08:18 | |Freight Inspector: | |<Electronically Signed by João Read MD> 04/03/11 1649 | + + + +---------+ + + | Performing | Address | City/State/Zipcode | Phone Number | | Organization | | | | + +---------+ + + | [facility] | | | | | [facility] | | | | + +---------+ + + documented in this encounter Visit Diagnoses Not on filedocumented in this encounter"
--- OUTSIDE RECORDS SUMMARY | ~2019-10-22 | XMS | Encounter Summary ---
Demographics + + + | Address | [address] | | | [place] [address] | + + + | Home Phone [...] | Author | [facility] | | | and [place] | + + + | Organization | [facility] | | | and [place] | [...] [place] | | | | | [address] | | + + + + + | Han Holt | ECON | [address] | | | | | [place] | | | | | [address] | | + + + + + Care Team Providers + +------+ + | Care Development Architect Name | Role | Phone | + +------+ + | Alfred Jones MD | PCP | | + +------+ + Encounter Details +--------+ + + + + | Date | Type | Department | Care Team | Description | +--------+ + + + + | 03/08/ | Abstract | [facility] | Dada Grant, | Atrial fibrillation | | 2012 | | CARDIOLOGY [address] | [address] | ([facility]) (Primary Dx); | | | | [place], | [place], | Paroxysmal | | | | [place] [address] | [place] [address] | supraventricular | | | | [phone] | [phone] | tachycardia ([facility]); | | | | | | Palpitations; | | | | | | Hyperlipidemia; | | | | | | Varices of other | | | | | | sites | +--------+ + + + + Social History + + + +--------+------+ | Tobacco Use | Types | Packs/Day | Years | Date | | | | | Used | | + + + +--------+------+ | Former Smoker | Cigarettes | | | | + + + +--------+------+ + + | Comments: quit smoking in [...] + + + | Blood Pressure | 132/66 | 02/03/2012 1:34 PM | | | | | PDT | | + + + + + | Pulse | 60 | 02/03/2012 1:34 PM | | | | | PDT | | + + + + + | Temperature | - | - | | + + + + + | Respiratory Rate | 18 | 02/03/2012 1:34 PM | | | | | PDT | | + + + + + | Oxygen Saturation | - | - | | + + + + + | Inhaled Oxygen | - | - | | | Concentration | | | | + + + + + | Weight | 54.4 kg (120 lb) | 02/03/2012 1:34 PM | | | | | PDT | | + + + + + | Height | 160.5 cm (5' 3.2") | 02/03/2012 1:34 PM | | | | | PDT | | + + + + + | Body Mass Index | 21.12 | 02/03/2012 1:34 PM | | | | | PDT | | + + + + + documented in this encounter Plan of Treatment Not on filedocumented as of this encounter Visit Diagnoses + + | Diagnosis | + + | Atrial fibrillation (HCC) - Primary Atrial fibrillation | + + | Paroxysmal supraventricular tachycardia (HCC) Paroxysmal supraventricular tachycardia | + + | Palpitations | + + | Hyperlipidemia Other and unspecified hyperlipidemia | + + | Varices of other sites | + + documented in this encounter
--- OUTSIDE RECORDS SUMMARY | ~2019-10-22 | XMS | Encounter Summary ---
Demographics + + + | Address | [address] | | | [place] [address] | + + + | Home Phone | | + + + | Preferred Language | Unknown | + + + | Marital Status | | + + + | Faith Affiliation | 1077 | + + + | Race | Unknown | + + + | Ethnic Group | Unknown | + + + Author + + + | Author | [facility] | | | and [place] | + + + | Organization | [facility] | | | and [place] [...] [place] | | | | | [address] | | + + + + + | Han Holt | ECON | [address] | | | | | [place] | | | | | [address] | | + + + + + Care Team Providers + +------+ + | Care Tower Erector Name | Role | Phone | + +------+ + PCP | Unavailable | + +------+ + Reason for Visit + + + | Reason | Comments | + + + | Medication Refill | | + + + Encounter Details +--------+--------+ + + + | Date | Type | Department | Care Team | Description | +--------+--------+ + + + | 11/18/ | Refill | [facility] | Dada Grant, | Medication Refill | | 2012 | | CARDIOLOGY [address] | MD [address] [place] | | | | | [place], | [place], | | | | | [place] [address] | [place] [address] | | | | | [phone] | [phone] | | | | | | | [...]
--- OUTSIDE RECORDS SUMMARY | ~2019-10-22 | XMS | Encounter Summary ---
Demographics + + + | Address | [address] | | | [place] [address] | + + + | Home Phone | | + + + | Preferred Language | Unknown | + + + | Marital Status | | + + + | Latter-Day Affiliation | 1077 | + + + | Race | Unknown | + + + | Ethnic Group | Unknown | + + + Author + + + | Author | [facility] | | | and [place] | + + + | Organization | [facility] | | | and [place] [...] [place] | | | | | [address] | | + + + + + | Han Holt | ECON | [address] | | | | | [place] | | | | | [address] | | + + + + + Care Team Providers + +------+ + | Care Power Bender Operator Name | Role | Phone | [...] + + | 03/09/ | Office | [facility] | Dada Grant, | Visit for annual | | 2012 | Visit | CARDIOLOGY [address] | [address] | health examination | | | | [place], | 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 She states she is o n [...] abdominal Cholecystectomy 2009 Appendectomy Bilateral dyer's neuroma 1989' History reviewed. No pertinent family history. Family [...] 3 cups of coffee dailyLiving situation: with [facility] Current Outpatient Prescriptions Medication Status Sig Dispense [...] the past and stopped taking it in , and is not willing to consider anticoagulation at this time. She is willing to take a ba by aspirin. She has a rare occasion of palpitations but remains very functional. She is in class I of the [employer] functional class. There is no [...] made to ensure accuracy; however, inadvertent computerized alberene stone setter errors may be pre sent. documented in this encounter Plan of Treatment [...] + + | PSVT (paroxysmal supraventricular tachycardia) ([facility]) Paroxysmal supraventricular | | tachycardia | + + | A-fib (HCC) Atrial fibrillation | + + | HTN (hypertension) Unspecified essential hypertension | + + documented in this encounter
--- OUTSIDE RECORDS SUMMARY | ~2019-10-22 | XMS | Encounter Summary ---
Demographics + + + | Address | [address] | | | [place] [address] | + + + | Home Phone | | + + + | Preferred Language | Unknown | + + + | Marital Status | | + + + | Adventist Affiliation | 1077 | + + + | Race | Unknown | + + + | Ethnic Group | Unknown | + + + Author + + + | Author | [facility] | | | and [place] | + + + | Organization | [facility] | | | and [place] | [...] [place] | | | | | [address] | | + + + + + | Han Holt | ECON | [address] | | | | | [place] | | | | | [address] | | + + + + + Care Team Providers + +------+ + | Care Technical Analyst Name | Role | Phone | + +------+ + | Alfred Jones MD | PCP | | + +------+ + Encounter Details +--------+ + + + + | Date | Type | Department | Care Team | Description | +--------+ + + + + | 08/15/ | Orders Only | [facility] | Yair, | Paroxysmal atrial | | 2016 | | CARDIOLOGY [address] | Sveta SUBGRADE TESTER [address] | fibrillation (HCC) | | | | [place], | [place], | (Primary Dx); | | | | [place] [address] | [place] [address] | Paroxysmal | | | | [phone] | [phone] | supraventricular | | | | | [...] Not on filedocumented as of this encounter Results ECG 12 lead (08/28/2015 4:11 PM PDT) + + + + + + | Component | Value | Ref Range | Performed | Pathologist | | | | | At | Signature | + + + + + + | VENTRICULAR | 50 | BPM | [facility] | | | RATE EKG | | | | | + + + + + + | ATRIAL RATE | 50 | BPM | [facility] | | + + + + + + | P-R | 194 | ms | [facility] | | | INTERVAL | | | | | + + + + + + | QRS | 82 | ms | [facility] | | | DURATION | | | | | + + + + + + | Q-T | 452 | ms | [facility] | | | INTERVAL | | | | | + + + + + + | Q-T | 412 | ms | [facility] | | | INTERVAL | | | | | | (CORRECTED) | | | | | + + + + + + | P WAVE AXIS | 44 | degrees | [facility] | | + + + + + + | QRS AXIS | 35 | degrees | [facility] | | + + + + + + | T AXIS | 50 | degrees | [facility] | | + + + + + + | INTERPRETAT | Sinus | | [facility] | | | ION TEXT | bradycardiaNonspecific | | | | | | ST abnormalityAbnormal | | | | | | ECGNo previous ECGs | | | | | | availableConfirmed by | | | | | | WONGSUWAN MD, SUWONG | | | | | | ([id number]) on 08/28/2015 | | | | | | 4:26:52 PM | | | | + + [...]
--- OUTSIDE RECORDS SUMMARY | ~2019-10-22 | XMS | Encounter Summary ---
Demographics + + + | Address | [address] | | | [place] [address] | + + + | Home Phone | | + + + | Preferred Language | Unknown | + + + | Marital Status | | + + + | Baptism Affiliation | 1077 | + + + | Race | Unknown | + + + | Ethnic Group | Unknown | + + + Author + + + | Author | [facility] | | | and [place] | + + + | Organization | [facility] | | | and [...] [place] | | | | | [address] | | + + + + + | Han Holt | ECON | [address] | | | | | [place] | | | | | [address] | | + + + + + Care Team Providers + +------+ + | Care Client Partner Name | Role | Phone | + +------+ + | Alfred Jones MD | PCP | | + +------+ + Encounter Details +--------+ + + + + | Date | Type | Department | Care Team | Description | +--------+ + + + + | 03/22/ | Abstract | [facility] [place] | Yair, | | | 2012 | | CARDIOLOGY [address] | MALIK Bangura [address] | | | | | [place], | [place], | | | | | [place] [address] | [place] [address] | | | | | [phone] | [phone] | | | | | | | [...] | EXTERNAL LAB: CBC | Routin | 12/18/2011 | | Results for this | | | e | | | procedure are in the | | | | | | results section. | + +--------+ + + + | EXTERNAL LAB: | Routin | 12/18/2011 | | Results for this | | PROTIME INR | e | | | procedure are in the | | | | | | results section. | + +--------+ + + + | EXTERNAL LAB: AST | Routin | 12/18/2011 | | Results for this | | | e | | | procedure are in the | | | | | | results section. | + +--------+ + + + | EXTERNAL LAB: ALT | Routin | 12/18/2011 | | Results for this | | | e | | | procedure are in the | | | | | | results section. | + +--------+ + + + | EXTERNAL LAB: EGFR | Routin | 12/18/2011 | | Results for this | | | e | | | procedure are in the | | | | | | results section. | + +--------+ + + + | EXTERNAL LAB: | Routin | 12/18/2011 | | Results for this | | CREATININE | e | | | procedure are in the | | | | | | results section. | + +--------+ + + + | CBC WITH | Routin | 12/18/2011 | | Results for this | | DIFFERENTIAL | e | | | procedure are in the | | | | | | results section. | + +--------+ + + + | COMPREHENSIVE | Routin | 12/18/2011 | | Results for this | | METABOLIC PANEL | e | | | procedure are in the | | | | | | results section. | + +--------+ + + + documented in this encounter Results Comprehensive Metabolic Panel (12/18/2011) + + + + + + | Component | Value | Ref Range | Performed | Pathologist | | | | | At | Signature | + + + + + + | Na | 135 | mmol/L | [facility] | [facility] | | [facility] | | + + + + + + | K | 3.0 (A) | 3.6 - 5.1 | [facility] | | | | | mmol/L | [facility] | | [facility] | | [facility] | | | | | [facility] - | | | | | | LABORATORY | | + + + + + + | Chloride | 103 | | [facility] | | | | | [facility] | [facility] | [facility] | | [facility] - | | | | | | LAB[facility]ATORY | | + + + + + + | CO2 | 24 | mmol/L | [facility] | | | | | [facility] | [facility] | [facility] | | | [facility] - | | | | | | LAB[facility]ATORY | | + + + + + + | Anion Gap | 11 | mmol/L | [facility] | | | | | | LAB[facility]ATORY | | + + + + + + | Glucose | 117 (A) | 70 - 100 mg/dL | [facility] | [facility] | [facility] | | | | | [facility] - | | | | | | LABORATORY | | + + + + + + | BUN | 19 | mg/dL | [facility] | | | | | [facility] | [facility] | [facility] - | | | | | | LAB[facility]ATORY | | + + + + + + | Bun/Creatin | 29.7 (A) | 6.0 - 28.6 | [facility] | | | ine | | | [facility] | | | | | | [facility] | | | | | | [facility] - | | | | | | LABORATORY | | + + + + + + | Calcium | 9.1 | mg/dL | [facility] | | | | | [facility] | | [facility] | [facility] | | | | | [facility] - | | | | | | LABORATORY | | + + + + + + | Alkaline | 71 | 35 - 115 U/L | [facility] | | | Phosphatase | | | [facility] | | | | | | [facility] | | | | | | [facility] - | | | | | | LABORATORY | | + + + + + + | Bilirubin | 0.5 | 0.1 - 1.5 mg/dL | [facility] | | | Total | | | [facility] | | | | | | [facility] | | | | | | [facility] - | | | | | | LABORATORY | | + + + + + + | Total | 6.7 | 6.1 - 8.4 g/dL | [facility] | | | Protein | | | [facility] | | | | | | [facility] | | | | | | [facility] - | | | | | | LABORATORY | | + + + + + + | Albumin | 4.1 | 3.3 - 4.8 g/dL | [facility] | | | | | | [facility] | [facility] | [facility] | | | | | [facility] - | | | | | | LABORATORY | | + + + + + + | Globulin | 2.6 | | [facility] | | | | | | [facility] | | | | | [facility] | | | | | [facility] - | | | | | | LABORATORY | | + + + + + + | Albumin/Tiera | 1.6 | | [facility] | | | bulin Ratio | | | [facility] | | | | | | [facility] | | | | | | [facility] - | | | | | | LABORATORY | | + + + + + + + + | Specimen | + + | Blood specimen | | (specimen) | + + + +---------+ + + | Performing | Address | City/State/Zipcode | Phone Number | | Organization | | | | + +---------+ + + | [facility]. | | | | | [facility] | | | | | - LABORATORY | | | | + +---------+ + + CBC with Differential (12/18/2011) + + + + + + | Component | Value | Ref Range | Performed | Pathologist | | | | | At | Signature | + + + + + + | RBC | 4.68 | 10*6/uL | | | + + + + + + | MCV | 88.5 | 80.0 - 98.0 fL | | | + + + + + + | RDW-CV | 12.4 | 11.0 - 15.0 % | | | + + + + + + | MCH | 30.0 | 26.0 - 33.0 pg | | | + + + + + + | MCHC | 34.0 | 30.0 - 36.0 % | | | + + + + + + | % Segmented | 57.6 | 40.0 - 80.0 % | | | | | | | | | | Neutrophils | | | | | + + + + + + | % | 23.9 (A) | 24.0 - 44.0 % | | | | Lymphocytes | | | | | + + + + + + | % Monocytes | 10.7 | 0.0 - 12.0 % | | | + + + + + + | % | 7.3 (A) | 0.0 - 7.0 % | | | | Eosinophils | | | | | + + + + + + | % Basophils | 0.5 | 1.0 % | | | + + + + + + + + | Specimen | + + | Blood specimen | | (specimen) | + + External Lab: CBC (12/18/2011) + +-------+ + + + | Component | Value | Ref Range | Performed | Pathologist | | | | | At | Signature | + +-------+ + + + | WBC, | 5.0 | 4.5 - 11 | EXTERNAL | | | External | | | LAB | | + +-------+ + + + | HGB, | 14.0 | 12 - 16 | EXTERNAL | | | External | | | LAB | | + +-------+ + + + | HCT, | 41.4 | 35 - 45 | EXTERNAL | | | External | | | LAB | | + +-------+ + + + | PLT, | 220 | 140 - 440 | EXTERNAL | | | External | | | LAB | | + +-------+ + + + + + | Resulting Agency Comment | + + | [facility] | + + + +---------+ + + | Performing | Address | City/State/Zipcode | Phone Number | | Organization | | | | + +---------+ + + | EXTERNAL LAB | | | | + +---------+ + + External Lab: Ishmael WHITTEN (12/18/2011) + +-------+ + + + | Component | Value | Ref Range | Performed | Pathologist | | | | | At | Signature | + +-------+ + + + | INR, | 1.2 | | EXTERNAL | | | External | | | LAB | | + +-------+ + + + + + | Specimen | + + | Blood specimen | | (specimen) | + + + + | Resulting Agency Comment | + + | [facility] | + + + +---------+ + + | Performing | Address | City/State/Zipcode | Phone Number | | Organization | | | | + +---------+ + + | EXTERNAL LAB | | | | + +---------+ + + External Lab: AST (12/18/2011) + +-------+ + + + | Component | Value | Ref Range | Performed | Pathologist | | | | | At | Signature | + +-------+ + + + | AST, | 18 | 0 - 40 | EXTERNAL | | | External | | | LAB | | + +-------+ + + + + + | Specimen | + + | Blood specimen | | (specimen) | + + + + | Resulting Agency Comment | + + | [facility] | + + + +---------+ + + | Performing | Address | City/State/Zipcode | Phone Number | | Organization | | | | + +---------+ + + | EXTERNAL LAB | | | | + +---------+ + + External Lab: ALT (12/18/2011) + +-------+ + + + | Component | Value | Ref Range | Performed | Pathologist | | | | | At | Signature | + +-------+ + + + | ALT, | 15 | 0 - 46 | EXTERNAL | | | External | | | LAB | | + +-------+ + + + + + | Specimen | + + | Blood specimen | | (specimen) | + + + + | Resulting Agency Comment | + + | [facility] | + + + +---------+ + + | Performing | Address | City/State/Zipcode | Phone Number | | Organization | | | | + +---------+ + + | EXTERNAL LAB | | | | + +---------+ + + External Lab: eGFR (12/18/2011) + +-------+ + + + | Component | Value | Ref Range | Performed | Pathologist | | | | | At | Signature | + +-------+ + + + | eGFR, | >60 | 60 | EXTERNAL | | | External | | | LAB | | + +-------+ + + + | eGFR, | | | EXTERNAL | | | | | | LAB | | | [place], | | | | | | External | | | | | + +-------+ + + + + + | Specimen | + + | Blood specimen | | (specimen) | + + + + | Resulting Agency Comment | + + | [facility] | + + + +---------+ + + | Performing | Address | City/State/Zipcode | Phone Number | | Organization | | | | + +---------+ + + | EXTERNAL LAB | | | | + +---------+ + + External Lab: Creatinine (12/18/2011) + +-------+ + + + | Component | Value | Ref Range | Performed | Pathologist | | | | | At | Signature | + +-------+ + + + | Creatinine, | 0.64 | 0.5 - 1.5 | EXTERNAL | | | External | | | LAB | | + +-------+ + + + + + | Specimen | + + | Blood specimen | | (specimen) | + + + + | Resulting Agency Comment | + + | [facility] | + + + +---------+ + + | Performing | Address | City/State/Zipcode | Phone Number | | Organization | | | | + +---------+ + + | EXTERNAL LAB | | | | + +---------+ + + documented in this encounter Visit Diagnoses Not on filedocumented in this encounter"
--- OUTSIDE RECORDS SUMMARY | ~2019-10-22 | XMS | Encounter Summary ---
Demographics + + + | Address | [address] | | | [place] [address] | + + + | Home Phone | | + + + | Preferred Language | Unknown | + + + | Marital Status | | + + + | Latter-Day Affiliation | 1077 | + + + | Race | Unknown | + + + | Ethnic Group | Unknown | + + + Author + + + | Author | [facility] | | | and [place] | + + + | Organization | [facility] | | | and [...] [place] | | | | | [address] | | + + + + + | Han Holt | ECON | [address] | | | | | [place] | | | | | [address] | | + + + + + Care Team Providers + +------+ + | Care Rug Shampooer Name | Role | Phone | + +------+ + PCP | Unavailable | + +------+ + Encounter Details +--------+ + + + + | Date | Type | Department | Care Team | Description | +--------+ + + + + | 04/01/ | Hospital | [facility] | Dada Grant, | | | 2010 | Encounter | MED CTR XRAY [address] | MD [address] [place] | | | | | [place] | [place], | | | | | [place] [address] | [place] [address] | | | | | [phone] | [phone] | | | | | | | [...] MD - 04/01/2011 8:44 AM PDTDATE: 04/01/11 [id number] EXPRESS EVENT MONITOR The patient wore the [employer] [place] express event monitor from 04/01/2011 until 04/22/2011 [...] per minute. DICTATED BY: Dada Grant MD, [facility] Cardiology JOB #: [id number] EXT JOB #:[id number] EDITED: 2010 13:32 edited: 05/08/11 ld <Electronically Signed by Dada Grant MD [facility]> 05/22/11 1118 documented in this [...] Performed At | + + + | [facility] Diagnostic Imaging Department | CHELSIE [facility] | | [address] | [place] | | E C H O C A R D | DIAG IMG | | I O G R A P H Y R E P O R T HEIGHT: 5'3" | | | WEIGHT: 125# HOSPITAL HOUSEKEEPER: TD REFERRING DR: DORIS | | | [...] Transcribed | | | Date/Time: 04/02/2011 06:28 Comber Operator: | | | <Electronically Signed by Dada Grant MD [facility]> 04/02/11 | | | 1224 | | + + + + + | Procedure Note | + + | Kulwinder Florence - 07/23/2013 4:02 PM [facility] | | Diagnostic Imaging Department | | [address] [facility] | | | | | | | | E C H O C A R D I O G R A P H Y R E P O R T | | | | | | HEIGHT: 5'3" WEIGHT: 125# HOSPITAL HOUSEKEEPER: TD | | REFERRING DR: DORIS TRIPLETT [...] | Transcribed Date/Time: 04/02/2011 06:28 | | Comber Operator: | | <Electronically Signed by Dada Grant MD [facility]> 04/02/11 1224 | + + [...] Performed At | + + + | [facility] Diagnostic Imaging Department | CHELSIE MCGOVERN | | [address] | [facility] | | REGADENOSON STRESS TEST, | DIAG [...] Transcribed Date/Time: | | | 04/01/2011 15:28 Comber Operator: <Electronically Signed | | | by Dada Grant MD [facility]> 04/02/11 0617 | | + + + + + | Procedure Note | + + | Naman, Rad Conversion - 07/23/2013 4:02 PM [facility] | | Diagnostic Imaging Department [address] [place] [address] | | REGADENOSON STRESS TEST, 04/01/2011 PROCEDURE: [...] 15:28Transcriptionist: <Electronically Signed by Dada Grant MD [facility]> | | 04/02/11 0617 | [...] 15:23 | |Transcribed Date/Time: 04/01/2011 15:28 | |Comber Operator: | |<Electronically Signed by Dada Grant MD [facility]> 04/02/11 0617 | + + + +---------+ + + | Performing | Address | City/State/Zipcode | Phone Number | | Organization | | | | + +---------+ + + | CHELSIE MCGOVERN | | | | | [facility] | | | | + +---------+ + + documented in this encounter Visit Diagnoses Not on filedocumented in this encounter
--- OUTSIDE RECORDS SUMMARY | ~2019-10-22 | XMS | Encounter Summary ---
Demographics + + + | Address | [address] | | | [place] [address] | + + + | Home Phone | | + + + | Preferred Language | Unknown | + + + | Marital Status | | + + + | Advent Affiliation | 1077 | + + + | Race | Unknown | + + + | Ethnic Group | Unknown | + + + Author + + + | Author | [facility] | | | and [place] | + + + | Organization | [facility] | | | and [place] [...] [place] | | | | | [address] | | + + + + + | Han Holt | ECON | [address] | | | | | [place] | | | | | [address] | | + + + + + Care Team Providers + +------+ + | Care Machine Setter Name | Role | Phone | + +------+ + | Alfred Jones MD | PCP | | + +------+ + Encounter Details +--------+ + + + + | Date | Type | Department | Care Team | Description | +--------+ + + + + | 03/08/ | Abstract | [facility] [place] | Dada Grant, | Atrial fibrillation | | 2012 | | CARDIOLOGY [address] | [address] | ([facility]) (Primary Dx); | | | | [place], | [place], | Paroxysmal | | | | [place] [address] | [place] [address] | supraventricular | | | | [phone] | [phone] | tachycardia ([facility]); | | | | | | Palpitations; [...]
--- OUTSIDE RECORDS SUMMARY | ~2019-10-22 | XMS | Encounter Summary ---
Demographics + + + | Address | [address] | | | [place] [address] | + + + | Home Phone | | + + + | Preferred Language | Unknown | + + + | Marital Status | | + + + | Caodaism Affiliation | 1077 | + + + | Race | Unknown | + + + | Ethnic Group | Unknown | + + + Author + + + | Author | [facility] | | | and [place] | + + + | Organization | [facility] | | | and [...] [place] | | | | | [address] | | + + + + + | Han Holt | ECON | [address] | | | | | [place] | | | | | [address] | | + + + + + Care Team Providers + +------+ + | Care Quenching Machine Operator Name | Role | Phone | + +------+ + PCP | Unavailable | + +------+ + Reason for Visit + + + | Reason | Comments | + + + | Medication Refill | | + + + Encounter Details +--------+--------+ + + + | Date | Type | Department | Care Team | Description | +--------+--------+ + + + | 04/24/ | Refill | [facility] [place] | Dada Grant, | Medication Refill | | 2011 | | CARDIOLOGY [address] | MD [address] [place] | | | | | [place], | [place], | | | | | [place] [address] | [place] [address] | | | | | [phone] | [phone] | | | | | | | [...]
--- OUTSIDE RECORDS SUMMARY | ~2019-10-22 | XMS | Encounter Summary ---
Demographics + + + | Address | [address] | | | [place] [address] | + + + | Home Phone | | + + + | Preferred Language | Unknown | + + + | Marital Status | | + + + | Shinto Affiliation | 1077 | + + + | Race | Unknown | + + + | Ethnic Group | Unknown | + + + Author + + + | Author | [facility] | | | and [place] | + + + | Organization | [facility] | | | and [place] | [...] [place] | | | | | [address] | | + + + + + | Han Holt | ECON | [address] | | | | | [place] | | | | | [address] | | + + + + + Care Team Providers + +------+ + | Care Forming Machine Upkeep Mechanic Helper Name | Role | Phone | + +------+ + | Alfred Jones MD | PCP | | + +------+ + Encounter Details +--------+ + + + + | Date | Type | Department | Care Team | Description | +--------+ + + + + | 03/13/ | Orders Only | [facility] [place] | Lupe Leblanc, | | | 2014 | | CARDIOLOGY [address] | RN | | | | | [place], | | | | | | [place] [address] | | | | | | [phone] | | | +--------+ + + + [...]
--- OUTSIDE RECORDS SUMMARY | ~2019-10-22 | XMS | Encounter Summary ---
Demographics + + + | Address | [address] | | | [place] [address] | + + + | Home Phone | | + + + | Preferred Language | Unknown | + + + | Marital Status | | + + + | Yazidism Affiliation | 1077 | + + + | Race | Unknown | + + + | Ethnic Group | Unknown | + + + Author + + + | Author | [facility] | | | and [place] | + + + | Organization | [facility] | | | and [place] [...] [place] | | | | | [address] | | + + + + + | Han Holt | ECON | [address] | | | | | [place] | | | | | [address] | | + + + + + Care Team Providers + +------+ + | Care Marketing Traffic Manager Name | Role | Phone | + +------+ + PCP | Unavailable | + +------+ + Encounter Details +--------+ + + + + | Date | Type | Department | Care Team | Description | +--------+ + + + + | 05/12/ | Hospital | [facility] | Evaristo Fragoso W, | | | 2006 | Encounter | MED CTR LABORATORY | DPM [address] | | | | | [address] [place] | [place], [place] | | | | | [place], [place] | [address] | | | | | [address] | | | | | | [phone] | | | +--------+ + + + [...]
--- OUTSIDE RECORDS SUMMARY | ~2019-10-22 | XMS | Encounter Summary ---
Demographics + + + | Address | [address] | | | [place] [address] | + + + | Home Phone | | + + + | Preferred Language | Unknown | + + + | Marital Status | | + + + | Restorationist Affiliation | 1077 | + + + | Race | Unknown | + + + | Ethnic Group | Unknown | + + + Author + + + | Author | [facility] | | | and [place] | + + + | Organization | [facility] | | | and [...] [place] | | | | | [address] | | + + + + + | Han Holt | ECON | [address] | | | | | [place] | | | | | [address] | | + + + + + Care Team Providers + +------+ + | Care Neon Glass Blower Name | Role | Phone | + +------+ + | Alfred Jones MD | PCP | | + +------+ + Encounter Details +--------+ + + + + | Date | Type | Department | Care Team | Description | +--------+ + + + + | / | Orders Only | [facility] [place] | Dada Grant, | Atrial fibrillation | | 2016 | | CARDIOLOGY [address] | [address] [place] | ([facility]); | | | | [place], | [place], | Hyperlipidemia; | | | | [place] [address] | [place] [address] | Paroxysmal | | | | [phone] | [phone] | supraventricular | | | | | [...]
--- OUTSIDE RECORDS SUMMARY | ~2019-10-22 | XMS | Encounter Summary ---
Demographics + + + | Address | [address] | | | [place] [address] | + + + | Home Phone | | + + + | Preferred Language | Unknown | + + + | Marital Status | | + + + | Oriental Orthodox Affiliation | 1077 | + + + | Race | Unknown | + + + | Ethnic Group | Unknown | + + + Author + + + | Author | [facility] | | | and [place] | + + + | Organization | [facility] | | | and [...] [place] | | | | | [address] | | + + + + + | Han Holt | ECON | [address] | | | | | [place] | | | | | [address] | | + + + + + Care Team Providers + +------+ + | Care Optical Goods Drill Operator Name | Role | Phone | + +------+ + | Alfred Jones MD | PCP | | + +------+ + Encounter Details +--------+ + + + + | Date | Type | Department | Care Team | Description | +--------+ + + + + | 02// | Orders Only | [facility] [place] | Lupe Leblanc, | | | 2013 | | CARDIOLOGY [address] | RN | | | | | [place], | | | | | | [place] [address] | | | | | | [phone] | | | +--------+ + + + [...]
--- OUTSIDE RECORDS SUMMARY | ~2019-10-22 | XMS | Encounter Summary ---
Demographics + + + | Address | [address] | | | [place] [address] | + + + | Home Phone | | + + + | Preferred Language | Unknown | + + + | Marital Status | | + + + | Zoroastrianism Affiliation | 1077 | + + + | Race | Unknown | + + + | Ethnic Group | Unknown | + + + Author + + + | Author | [facility] | | | and [place] | + + + | Organization | [facility] | | | and [place] [...] [place] | | | | | [address] | | + + + + + | Han Holt | ECON | [address] | | | | | [place] | | | | | [address] | | + + + + + Care Team Providers + +------+ + | Care Technician Terminal And Repeater Name | Role | Phone | + [...] [address] | | | | [place], | [place], | | | | | [place] [address] | [place] [address] | | | | | [phone] | [phone] | | | | | | | [...]
--- OUTSIDE RECORDS SUMMARY | ~2019-10-22 | XMS | Encounter Summary ---
Demographics + + + | Address | [address] | | | [place] [address] | + + + | Home Phone | | + + + | Preferred Language | Unknown | + + + | Marital Status | | + + + | Quaker Affiliation | 1077 | + + + | Race | Unknown | + + + | Ethnic Group | Unknown | + + + Author + + + | Author | [facility] | | | and [place] | + + + | Organization | [facility] | | | and [place] | | | | | [address] | | + + + + + | Han Holt | ECON | [address] | | | | | [place] | | | | | [address] | | + + + + + Care Team Providers + +------+ + | Care Civil Preparedness Training Officer Name | Role | Phone | + [...] [address] | | | | | [place], | [place], | | | | | [place] [address] | [place] [address] | | | | | [phone] | [phone] | | | | | | | [...] ALEAH JIMENES. | | | | | [facility] | | | | | - [...] | | | LAB | | | Armenian, | | | | | | External [...]
--- OUTSIDE RECORDS SUMMARY | ~2019-10-22 | XMS | Encounter Summary ---
Demographics + + + | Address | [address] | | | [place] [address] | + + + | Home Phone | | + + + | Preferred Language | Unknown | + + + | Marital Status | | + + + | Cheondoism Affiliation | 1077 | + + + | Race | Unknown | + + + | Ethnic Group | Unknown | + + + Author + + + | Author | [facility] | | | and [place] | + + + | Organization | [facility] | | | and [...] [place] | | | | | [address] | | + + + + + | Han Holt | ECON | [address] | | | | | [place] | | | | | [address] | | + + + + + Care Team Providers + +------+ + | Care Assistant Technician Name | Role | Phone | [...] | CARDIOLOGY [address] | [address] [place] | ([facility]); | | | | [place], | [place], | Hyperlipidemia; | | | | [place] [address] | [place] [address] | Paroxysmal | | | | [phone] | [phone] | supraventricular | | | | | [...]
--- OUTSIDE RECORDS SUMMARY | ~2019-10-22 | XMS | Encounter Summary ---
Demographics + + + | Address | [address] | | | [place] [address] | + + + | Home Phone | | + + + | Preferred Language | Unknown | + + + | Marital Status | | + + + | Congregational Affiliation | 1077 | + + + | Race | Unknown | + + + | Ethnic Group | Unknown | + + + Author + + + | Author | [facility] | | | and [place] | + + + | Organization | [facility] | | | and [...] [place] | | | | | [address] | | + + + + + | Hna Holt | ECON | [address] | | | | | [place] | | | | | [address] | | + + + + + Care Team Providers + +------+ + | Care Crop And Soil Scientist Name | Role | Phone | + +------+ + | Alfred Jones MD | PCP | | + +------+ + Reason for Visit +--------+ + | Reason | Comments | +--------+ + | Other | question about sotalol | +--------+ + Encounter Details +--------+ + + + + | Date | Type | Department | Care Team | Description | +--------+ + + + + | 03/23/ | Telephone | [facility] | Dada Grant, | Other (question | | 2013 | | CARDIOLOGY [address] | MD [address] [place] | about sotalol) | | | | [place], | [place], | | | | | [place] [address] | [place] [address] | | | | | [phone] | [phone] | | | | | | | [...]
--- OUTSIDE RECORDS SUMMARY | ~2019-10-22 | XMS | Encounter Summary ---
Demographics + + + | Address | [address] | | | [place] [address] | + + + | Home Phone | | + + + | Preferred Language | Unknown | + + + | Marital Status | | + + + | Christian Affiliation | 1077 | + + + | Race | Unknown | + + + | Ethnic Group | Unknown | + + + Author + + + | Author | [facility] | | | and [place] | + + + | Organization | [facility] | | | and [place] | | | | | [address] | | + + + + + | Han Holt | ECON | [address] | | | | | [place] | | | | | [address] | | + + + + + Care Team Providers + +------+ + | Care Communications Executive Name | Role | Phone | + [...] | CARDIOLOGY [address] | [address] [place] | (Primary Dx); | | | | [place], | [place], | Hyperlipidemia; | | | | [place] [address] | [place] [address] | Paroxysmal | | | | [phone] | [phone] | supraventricular | | | | | [...]
--- OUTSIDE RECORDS SUMMARY | ~2019-10-22 | XMS | Encounter Summary ---
Demographics + + + | Address | [address] | | | [place] [address] | + + + | Home Phone | | + + + | Preferred Language | Unknown | + + + | Marital Status | | + + + | Anglican Affiliation | 1077 | + + + | Race | Unknown | + + + | Ethnic Group | Unknown | + + + Author + + + | Author | [facility] | | | and [place] | + + + | Organization | [facility] | | | and [place] | | | | | [address] | | + + + + + | Han Holt | ECON | [address] | | | | | [place] | | | | | [address] | | + + + + + Care Team Providers + +------+ + | Care Pen Or Pencil Assembly Machine Operator Name | Role | Phone [...] | RN | | | | | [place], | | | | | | [place] [address] | | | | | | [phone] | | | +--------+ + + + [...]
--- OUTSIDE RECORDS SUMMARY | ~2019-10-22 | XMS | Encounter Summary ---
Demographics + + + | Address | [address] | | | [place] [address] | + + + | Home Phone [...] | [facility] | | | and [place] | + + + | Organization | [facility] | | | and [place] [...] [place] | | | | | [address] | | + + + + + | Han Holt | ECON | [address] | | | | | [place] | | | | | [address] | | + + + + + Care Team Providers + +------+ + | Care Aluminum Shingle Roofer Name | Role | Phone | + [...] + + | 12/31/ | Telephone | [facility] | Dada Grant, | Recall For Services | | 2012 | | CARDIOLOGY [address] | [address] [place] | ([facility] | | | | [place], | [place], | | | | | [place] [address] | [place] [address] | | | | | [phone] | [phone] | | | | | | | [...]
--- OUTSIDE RECORDS SUMMARY | ~2019-10-22 | XMS | Encounter Summary ---
Demographics + + + | Address | [address] | | | [place] [address] | + + + | Home Phone | | + + + | Preferred Language | Unknown | + + + | Marital Status | | + + + | Roman Catholic Affiliation | 1077 | + + + | Race | Unknown | + + + | Ethnic Group | Unknown | + + + Author + + + | Author | [facility] | | | and [place] | + + + | Organization | [facility] | | | and [place] | [...] [place] | | | | | [address] | | + + + + + | Han Holt | ECON | [address] | | | | | [place] | | | | | [address] | | + + + + + Care Team Providers + +------+ + | Care Filer Metal Patterns Name | Role | Phone | + [...] + | 09/02/ | Office | [facility] | [place], | Paroxysmal atrial | | 2017 | Visit | CARDIOLOGY [address] | MALIK Bangura [address] | fibrillation (HCC) | | | | [place], | [place], | (Primary Dx); | | | | [place] [address] | [place] [address] | Paroxysmal | | | | [phone] | [phone] | supraventricular | | | | | [...] + documented in this encounter Progress Notes YairBrunoMALIK saavedra - 09/02/2016 12:46 PM PDTFormatting of this [...] RESULTS reviewed during visit today primarily from [facility]: LIPID Lab Results Component Value Date CHOLHDL [...] PLTEX 217 08/25/2015 I reviewed records from [facility] for office visit on 08/28/2015 which is [...] 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 There is no [...] and Female Gender (1), giving her a [id number] of 2, estimating a 2=2.2% risk of [...] this chart may have been created with [employer] voice recognition software. Occasi onal wrong-word or [...] | | | | | | 28-AUG-2015 16:11,[place] | | | | | | interval has | | | | | | increasedConfirmed by | | | | | | GIACOMO PIEDRA MD | | | | | | ([id number]) on 09/03/2016 | | | | | [...]
--- OUTSIDE RECORDS SUMMARY | ~2019-10-22 | XMS | Encounter Summary ---
Demographics + + + | Address | [address] | | | [place] [address] | + + + | Home Phone | | + + + | Preferred Language | Unknown | + + + | Marital Status | | + + + | Church Affiliation | 1077 | + + + | Race | Unknown | + + + | Ethnic Group | Unknown | + + + Author + + + | Author | [facility] | | | and [place] | + + + | Organization | [facility] | | | and [place] | | | | | [address] | | + + + + + | Han Holt | ECON | [address] | | | | | [place] | | | | | [address] | | + + + + + Care Team Providers + +------+ + | Care Brand Executive Name | Role | Phone | + +------+ + | Alfred Jones MD | PCP | | + +------+ + Reason for Visit + + + | Reason | Comments | + + + | Annual Assessment | | + + + | Atrial Fibrillation | | + + + Encounter Details +--------+---------+ + + + | Date | Type | Department | Care Team | Description | +--------+---------+ + + + | 08/27/ | Office | [facility] | [place], | Palpitations | | 2016 | Visit | CARDIOLOGY [address] | MALIK Bangura [address] | (Primary Dx); | | | | [place], | [place], | Paroxysmal atrial | | | | [place] [address] | [place] [address] | fibrillation (HCC); | | | | [phone] | [phone] | Paroxysmal | | | | | | supraventricular | | | | | | tachycardia | +--------+---------+ + + + Social History [...] + + + | Blood Pressure | 132/74 | 08/28/2015 4:08 PM | | | | | PDT | | + + + + + | Pulse | 50 | 08/28/2015 4:08 PM | Regular | | | | PDT | | + + + + + | Temperature | - | - | | + + + + + | Respiratory Rate | 18 | 08/28/2015 4:08 PM | | | | | PDT | | + + + + + | Oxygen Saturation | - | - | | + + + + + | Inhaled Oxygen | - | - | | | Concentration | | | | + + + + + | Weight | 52.6 kg (116 lb) | 08/28/2015 4:08 PM | | | | | PDT | | + + + + + | Height | 160 cm (5' 3") | 08/28/2015 4:08 PM | | | | | PDT | | + + + + + | Body Mass Index | 20.55 | 08/28/2015 4:08 PM | | | | | PDT | | + + + + + documented in this encounter Progress Notes Bruno Mirandan, MALIK - 08/28/2015 3:48 PM PDTFormatting of this note might be different f rom the original. PATIENT NAME: Nayely Holt : 1930: AGE: 85 y.o. PRIMARY CARE: Alfred Jones MD OUTPATIENT FOLLOW UP VISIT Date of Service: 08/28/2015 HISTORY OF PRESENT ILLNESS: Nayely Holt is a 85 y.o. female with a history of paroxysmal atrial fibrillation, hy pertension, anxiety disorder and hyperlipidemia. She is being seen today for follow up atri al fibrillation. She was last seen 08/04/2014 at which time she was offered a loop recorder implantation to assess potential recurrence of atrial fibrillation but patient decided to wait and think abo ut it some more. She was to follow-up in one year. Since that time, she has been doing "re ally well but with more stress than usual". She has had a good energy level. 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 She enjoys taking time and relaxing in her backyard in her spare time. She has not had any chest pain or discomfort at rest or with exertion. She has not noticed shortness o f breath. She has not had any lightheadedness or dizziness. She has noticed brief palpitat ions that have no associated symptoms and are unchanged in frequency and duration from her n orm. She has not had leg swelling. She is able to sleep laying down at night without any s ymptoms of shortness of breath. She states that her palpitation episodes has remained close to the same and they seemed to resolve when she takes her Xanax. MEDICAL, SURGICAL, AND PERSONAL HISTORY Past Medical, Surgical, Family, and Social History are reviewed in EPIC. CURRENT PROBLEMS Patient Active Problem List Diagnosis VARICOSE VEIN IRRITABLE BOWEL SYNDROME, HX OF Paroxysmal atrial fibrillation Paroxysmal supraventricular tachycardia Palpitations Hyperlipidemia CURRENT [...] for dysuria, urgency, frequency and hematuria. Musculoskeletal: Negative for myalgias, back pain, joint pain, falls and neck pain. Gait Problems = No Skin: Negative for itching and rash. Neurological: Negative for dizziness, tingling, tremors, speech change, seizures, loss of c onsciousness and weakness. Lightheaded = No Endo/Heme/Allergies: Does not bruise/bleed easily. Psychiatric/Behavioral: Negative for memory loss. The patient is not nervous/anxious and do es not have insomnia. OBJECTIVE: PHYSICAL EXAM BP 132/74 mmHg | Pulse 50 | Resp 18 | Ht 1.6 m (5' 3") | Wt 52.617 kg (116 lb) | BMI 20.55 kg/m2 Physical Exam Constitutional: She appears well-developed [...] xhibit a depressed mood. ECG: I personally reviewed ECG tracing from 08/28/2015 that shows a sinus bradycardia with nonspecific ST T changes heart rate of 50 bpm. LAB RESULTS: LIPID Lab Results Component Value Date CHOLHDL [...] PLTEX 217 08/25/2015 I reviewed records from [facility] for office visit on 07/2014. ASSESSMENT: 1. Paroxysmal atrial fibrillation/paroxysmal supraventricular tachycardia [...] her palpitations to emotio nal stress and the palpitations seem to be maybe once a month and they resolve when she take s her Xanax. She thinks that this episodes have not worsened but they are related to increa se in stress. She has been having a little bit more stress lately in her life with her hips and grand kids living with them for the last 6 months. She remains very functional. She i s in class I of the [place] [employer] functional class. There is no leg swelling o n the physical exam and no other signs or symptoms of overt congestive heart failure. Long- term anticoagulations to minimize the risk of stroke was brought up again. She is taking as pirin and she is not interested in starting any anticoagulation medication at this point. S he states that she understands her pros and cons but she chooses not to do that at this poin t. Risk of stroke is reviewed today; her risk factors are Age 65 to 74 (1) and Female Gende r (1), giving her a [id number] of 2, estimating a 2=2.2% risk of stroke per year in atrial fibrillation. Risk of bleed on anticoagulant is also reviewed today; her risk factors are HTN (1), >64 YO (1) and NSAIDS/ASA (1), giving her a HAS-BLED score of 3, patient is at 2- 3= Intermediate Risk (4.1-5.8%) for risk of bleed. ESC guidelines recommend anticoagulatio n for scores of 1 or greater. ACC guidelines recommend anticoagulation for scores of 2 or g reater. She was on warfarin in the past and stopped taking it in 07/2011, and is not willing to consider anticoagulation at this time. She wants to take a baby aspirin as needed. 2. Hypertension: A. well-controlled blood pressure 3. History of anxiety disorder. 4. History of hyperlipidemia. A. Borderline elevated cholesterol panel. Patient does not want to start any medication and she has reviewed with me low fat diet. PLAN: 1. Patient has been encouraged to increase her physical activity and try to exercise on a more structured basis. 2. She is otherwise doing well from cardiac standpoint. She remains asymptomatic and very functional. 3. She will follow up in 1 year, or sooner with concerns. Portions of this chart may have been created with [employer] voice recognition software. Occasi onal wrong-word or [...] | ECG 12 LEAD | Routin | 08/28/2015 | Paroxysmal atrial | Results for this | | | e | 4:11 PM | fibrillation (HCC) | procedure are in the | | | | PDT | Paroxysmal | results section. | | | | | supraventricular | | | | | | tachycardia | | + +--------+ + + + documented in this encounter Results ECG 12 lead (08/28/2015 [...] MD | | | | | | ([id number]) on 08/28/2015 | | | | | [...] + | Diagnosis | + + | Palpitations - Primary | + + | Paroxysmal atrial fibrillation (HCC) Atrial fibrillation | + + | Paroxysmal supraventricular tachycardia | + + documented in this encounter
--- OUTSIDE RECORDS SUMMARY | ~2019-10-22 | XMS | Encounter Summary ---
Demographics + + + | Address | [address] | | | [place] [address] | + + + | Home Phone | | + + + | Preferred Language | Unknown | + + + | Marital Status | | + + + | Episcopalian Affiliation | 1077 | + + + | Race | Unknown | + + + | Ethnic Group | Unknown | + + + Author + + + | Author | [facility] | | | and [place] | + + + | Organization | [facility] | | | and [place] | | | | | [address] | | + + + + + | Han Holt | ECON | [address] | | | | | [place] | | | | | [address] | | + + + + + Care Team Providers + +------+ + | Care Commercial Mortgage Broker Name | Role | Phone | + +------+ + PCP | Unavailable | + +------+ + Encounter Details +--------+ + + + + | Date | Type | Department | Care Team | Description | +--------+ + + + + | 05/12/ | Hospital | [facility] | Evaristo Fragoso W, | | | 2006 | Encounter | MED CTR LABORATORY | DPM [address] | | | | | [address] [place] | [place], [place] | | | | | [place], [place] | [address] | | | | | [address] | | | | | | [phone] | | | +--------+ + + + [...]
--- OUTSIDE RECORDS SUMMARY | ~2019-10-22 | XMS | Encounter Summary ---
Demographics + + + | Address | [address] | | | [place] [address] | + + + | Home Phone | | + + + | Preferred Language | Unknown | + + + | Marital Status | | + + + | Mormonism Affiliation | 1077 | + + + | Race | Unknown | + + + | Ethnic Group | Unknown | + + + Author + + + | Author | [facility] | | | and [place] | + + + | Organization | [facility] | | | and [place] | [...] [place] | | | | | [address] | | + + + + + | Han Holt | ECON | [address] | | | | | [place] | | | | | [address] | | + + + + + Care Team Providers + +------+ + | Care Cargo Broker Name | Role | Phone | + +------+ + | Alfred Jones MD | PCP | | + +------+ + Encounter Details +--------+ + + + + | Date | Type | Department | Care Team | Description | +--------+ + + + + | 10/06/ | Imaging | [facility] | Provider, | | | 2019 | Exam | [facility] EXTER[facility] | MD [address] | | | | | IMAGING [address] | [address] | | | | | [address] [place] | [place] [address] | | | | | [place] [address] | | | | | | [phone] | | | +--------+ + + + [...] +--------+ + + + | XR CHEST 2 VIEWS | Routin | 07/23/2013 | | Results for this | | | e | 12:00 AM | | procedure are in the | | | | PST | | results section. | + +--------+ + + + documented in this encounter Results XR Chest 2 Vws (07/23/2013 12:00 AM PST) + + | Specimen | + + | | + + + + + | Narrative | Performed At | + + + | External films for comparison only | [facility] | | | | | No results will be in the chart. | | + + + + +---------+ + + | Performing | Address | City/State/Zipcode | Phone Number | | Organization | | | | + +---------+ + + | [facility] | | | | + +---------+ + + documented in this encounter Visit Diagnoses Not on filedocumented in this encounter"
--- OUTSIDE RECORDS SUMMARY | ~2019-10-22 | XMS | Encounter Summary ---
Demographics + + + | Address | [address] | | | [place] [address] | + + + | Home Phone | | + + + | Preferred Language | Unknown | + + + | Marital Status | | + + + | Druze Affiliation | 1077 | + + + | Race | Unknown | + + + | Ethnic Group | Unknown | + + + Author + + + | Author | [facility] | | | and [place] | + + + | Organization | [facility] | | | and [...] [place] | | | | | [address] | | + + + + + | Han Holt | ECON | [address] | | | | | [place] | | | | | [address] | | + + + + + Care Team Providers + +------+ + | Care Journeyman Carpenter Name | Role | Phone | + [...] [address] | | | | | [place], | [place], | | | | | [place] [address] | [place] [address] | | | | | [phone] | [phone] | | | | | | | [...] +--------+ + + + | EXTERNAL LAB: [facility] | Routin | 08/25/2015 | | Results for this | | | e | 6:01 AM | | procedure are in the | | | | PST | | results section. | + +--------+ + + + | EXTERNAL LAB: [facility] | Routin | 08/25/2015 | | Results [...] | + +-------+ + + + | MARCELLA, | 16 | 6 - 23 | EXTERNAL | | | External | | | LAB | | + +-------+ + + + + + | Resulting Agency Comment | + + | [facility] | + + + +---------+ + + [...] Comment | + + | [facility] | + + + +---------+ + + | Performing | Address | City/State/Zipcode | Phone Number | | Organization | | | | + +---------+ + + | EXTERNAL LAB | | | | + +---------+ + + External Lab: AST (08/25/2015 6:01 AM PST) + +-------+ + [...] Comment | + + | [facility] | + + + +---------+ + + [...] Comment | + + | [facility] | + + + +---------+ + + [...] Comment | + + | [facility] | + + + +---------+ + + [...] Comment | + + | [facility] | + + + +---------+ + + [...] Comment | + + | [facility] | + + + +---------+ + + [...] Comment | + + | [facility] | + + + +---------+ + + [...] Comment | + + | [facility] | + + + +---------+ + + [...] Comment | + + | [facility] | + + + +---------+ + + [...] Comment | + + | [facility] | + + + +---------+ + + [...] Comment | + + | [facility] | + + + +---------+ + + [...] ST. | [address] | [place] | [phone] | | [facility] | | [address] | | | - LABORATORY [...] Cholesterol | | | | | | [place] | | | | | + +---------+ [...]
--- OUTSIDE RECORDS SUMMARY | ~2019-10-22 | XMS | Encounter Summary ---
Demographics + + + | Address | [address] | | | [place] [address] | + + + | Home Phone | | + + + | Preferred Language | Unknown | + + + | Marital Status | | + + + | Rastafarian Affiliation | 1077 | + + + | Race | Unknown | + + + | Ethnic Group | Unknown | + + + Author + + + | Author | [facility] | | | and [place] | + + + | Organization | [facility] | | | and [place] | | | | | [address] | | + + + + + | Han Holt | ECON | [address] | | | | | [place] | | | | | [address] | | + + + + + Care Team Providers + +------+ + | Care Brand Coordinator Name | Role | Phone | [...] + + | 03/23/ | Telephone | [facility] | Dada Grant, | Other (question | | 2013 | | CARDIOLOGY [address] | MD [address] [place] | about sotalol) | | | | [place], | [place], | | | | | [place] [id number] | [place] [id number] | | | | | [phone] | [phone] | | | | | | | [...]
--- OUTSIDE RECORDS SUMMARY | ~2019-10-22 | XMS | Encounter Summary ---
Demographics + + + | Address | [address] | | | [place] [address] | + + + | Home Phone | | + + + | Preferred Language | Unknown | + + + | Marital Status | | + + + | Worship Affiliation | 1077 | + + + | Race | Unknown | + + + | Ethnic Group | Unknown | + + + Author + + + | Author | [facility] | | | and [place] | + + + | Organization | [facility] | | | and [place] | | | | | [address] | | + + + + + | Han Holt | ECON | [address] | | | | | [place] | | | | | [address] | | + + + + + Care Team Providers + +------+ + | Care Software Educator Name | Role | Phone | [...] Medication Refill | | 2017 | | [facility] [address] | MALIK Bangura [address] | | | | | [place], | [place], | | | | | [place] [address] | [place] [address] | | | | | [phone] | [phone] | | | | | | | [...]
--- OUTSIDE RECORDS SUMMARY | ~2019-10-22 | XMS | Encounter Summary ---
Demographics + + + | Address | [address] | | | [place] [address] | + + + | Home Phone [...] | Author | [facility] | | | and [place] | + + + | Organization | [facility] | | | and [place] [...] [place] | | | | | [address] | | + + + + + | Han Holt | ECON | [address] | | | | | [place] | | | | | [address] | | + + + + + Care Team Providers + +------+ + | Care Tip Scourer Name | Role | Phone | + [...] | | CARDIOLOGY [address] | [address] [place] | | | | | [place], | [place], | | | | | [place] [address] | [place] [address] | | | | | [phone] | [phone] | | | | | | | [...] St | CHELSIE Stewart | | | [facility] | | [address], [facility] | | | - LABORATORY [...]
--- OUTSIDE RECORDS SUMMARY | ~2019-10-22 | XMS | Encounter Summary ---
Demographics + + + | Address | [address] | | | [place] [address] | + + + | Home Phone | | + + + | Preferred Language | Unknown | + + + | Marital Status | | + + + | Bahai Affiliation | 1077 | + + + | Race | Unknown | + + + | Ethnic Group | Unknown | + + + Author + + + | Author | [facility] | | | and [place] | + + + | Organization | [facility] | | | and [place] | | | | | [address] | | + + + + + | Han Holt | ECON | [address] | | | | | [place] | | | | | [address] | | + + + + + Care Team Providers + +------+ + | Care Calibration Tester Name | Role | Phone | + [...] [address] | | | | | | [place], [place] | | | | | | [address] | | | | | | [phone] | | | +--------+ + + + [...]
--- OUTSIDE RECORDS SUMMARY | ~2019-10-22 | XMS | Encounter Summary ---
Demographics + + + | Address | [address] | | | [place] [address] | + + + | Home Phone | | + + + | Preferred Language | Unknown | + + + | Marital Status | | + + + | Hindu Affiliation | 1077 | + + + | Race | Unknown | + + + | Ethnic Group | Unknown | + + + Author + + + | Author | [facility] | | | and [place] | + + + | Organization | [facility] | | | and [...] [place] | | | | | [address] | | + + + + + | Han Holt | ECON | [address] | | | | | [place] | | | | | [address] | | + + + + + Care Team Providers + +------+ + | Care Work Measurement Engineer Name | Role | Phone | [...] | RN | | | | | [place], | | | | | | [place] [address] | | | | | | [phone] | | | +--------+ + + + [...]
--- OUTSIDE RECORDS SUMMARY | ~2019-10-22 | XMS | Encounter Summary ---
Demographics + + + | Address | [address] | | | [place] [address] | + + + | Home Phone | | + + + | Preferred Language | Unknown | + + + | Marital Status | | + + + | Mandaeism Affiliation | 1077 | + + + | Race | Unknown | + + + | Ethnic Group | Unknown | + + + Author + + + | Author | [facility] | | | and [place] | + + + | Organization | [facility] | | | [...] [place] | | | | | [address] | | + + + + + | Han Holt | ECON | [address] | | | | | [place] | | | | | [address] | | + + + + + Care Team Providers + +------+ + | Care Color Worker Name | Role | Phone | [...] Description | +--------+--------+ + + + | 03/07/ | Refill | [facility] | Dada Grant, | Medication Refill | | 2013 | | [address] | [address] [facility] | | | | | [facility] | [facility], | | | | | [place] [address] | [place] [address] | | | | | [phone] | [phone] | | | | | | | [...]
--- OUTSIDE RECORDS SUMMARY | ~2019-10-22 | XMS | Encounter Summary ---
Demographics + + + | Address | [address] | | | [place] [address] | + + + | Home Phone | | + + + | Preferred Language | Unknown | + + + | Marital Status | | + + + | Baptist Affiliation | 1077 | + + + | Race | Unknown | + + + | Ethnic Group | Unknown | + + + Author + + + | Author | [facility] | | | and [place] | + + + | Organization | [facility] | | | and [...] [place] | | | | | [address] | | + + + + + | Han Holt | ECON | [address] | | | | | [place] | | | | | [address] | | + + + + + Care Team Providers + +------+ + | Care Slide Fastener Repairer Name | Role | Phone | + +------+ + | Alfred Jones MD | PCP | | + +------+ + Reason for Visit +--------+ + | Reason | Comments | +--------+ + | LABS | | +--------+ + Encounter Details +--------+ + + + + | Date | Type | Department | Care Team | Description | +--------+ + + + + | 10/27/ | Telephone | [facility] [place] | Yair, | KAREN | | 2019 | | CARDIOLOGY [address] | MALIK Bangura [address] | | | | | [place], | [place], | | | | | [place] [address] | [place] [address] | | | | | [phone] | [phone] | | | | | | | [...] | Lab | Routin | Hyperlipidemia, | Expected: | | | | e | mixed | 10/27/2018, Expires: | | | | | | 10/27/2019 | + +------+--------+ + + | Comprehensive | Lab | Routin | Essential | Expected: | | Metabolic Panel | | e | hypertension with | 10/27/2018, Expires: | | | | | goal blood pressure | 10/27/2019 | | | | | less than 130/80 | | + +------+--------+ + + | CBC with | Lab | Routin | Essential | Expected: | | Differential | | e | hypertension with | 10/27/2018, Expires: | | | | | goal blood pressure | 10/27/2019 | | | | | less than 130/80 | | + +------+--------+ + + documented as of this encounter Visit Diagnoses + + | Diagnosis | + + | Essential hypertension with goal blood pressure less than 130/80 - Primary | + + | Hyperlipidemia, mixed Mixed hyperlipidemia | + + documented in this encounter"
--- OUTSIDE RECORDS SUMMARY | ~2019-10-22 | XMS | Encounter Summary ---
Demographics + + + | Address | [address] | | | [place] [address] | + + + | Home Phone | | + + + | Preferred Language | Unknown | + + + | Marital Status | | + + + | Mu-Ism Affiliation | 1077 | + + + | Race | Unknown | + + + | Ethnic Group | Unknown | + + + Author + + + | Author | [facility] | | | and [place] | + + + | Organization | [facility] | | | and [place] | | | | | [address] | | + + + + + | Han Holt | ECON | [address] | | | | | [place] | | | | | [address] | | + + + + + Care Team Providers + +------+ + | Care Dye Range Feeder Name | Role | Phone | + [...] + + | 03/09/ | Office | [facility] | Dada Grant, | Visit for annual | | 2012 | Visit | CARDIOLOGY [address] | [address] | health examination | | | | [place], | 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 She states she is o n [...] She is in class I of the [employer] [employer] functional class. There is no [...] made to ensure accuracy; however, inadvertent computerized qualitative field project manager errors may be pre sent. documented in [...] + + | PSVT (paroxysmal supraventricular tachycardia) ([facility]) Paroxysmal supraventricular | | tachycardia | + + | A-fib (HCC) Atrial fibrillation | + + | HTN (hypertension) Unspecified essential hypertension | + + documented in this encounter
--- OUTSIDE RECORDS SUMMARY | ~2019-10-22 | XMS | Encounter Summary ---
Demographics + + + | Address | [address] | | | [place] [address] | + + + | Home Phone [...] + | Author | [facility] | | | and [place] | + + + | Organization | [facility] | | [...] [place] | | | | | [address] | | + + + + + | Han Holt | ECON | [address] | | | | | [place] | | | | | [address] | | + + + + + Care Team Providers + +------+ + | Care Electro Mechanical Technician Name | Role | Phone | [...] | RN | | | | | [place], | | | | | | [place] [address] | | | | | | [phone] | | | +--------+ + + + [...]
--- OUTSIDE RECORDS SUMMARY | ~2019-10-22 | XMS | Encounter Summary ---
Demographics + + + | Address | [address] | | | [place] [address] | + + + | Home Phone | | + + + | Preferred Language | Unknown | + + + | Marital Status | | + + + | Moravian Affiliation | 1077 | + + + | Race | Unknown | + + + | Ethnic Group | Unknown | + + + Author + + + | Author | [facility] | | | and [place] | + + + | Organization | [facility] | | | and [...] [place] | | | | | [address] | | + + + + + | Han Holt | ECON | [address] | | | | | [place] | | | | | [address] | | + + + + + Care Team Providers + +------+ + | Care Edi Manager Name | Role | Phone | [...] | 11/18/ | Refill | [facility] [place] | Dada Grant, | Medication Refill | | 2012 | | CARDIOLOGY [address] | MD [address] | | | | | [place], | [place], | | | | | [place] [address] | [place] [address] | | | | | [phone] | [phone] | | | | | | | [...]
--- OUTSIDE RECORDS SUMMARY | ~2019-10-22 | XMS | Encounter Summary ---
Demographics + + + | Address | [address] | | | [place] [address] | + + + | Home Phone | | + + + | Preferred Language | Unknown | + + + | Marital Status | | + + + | Methodist Affiliation | 1077 | + + + | Race | Unknown | + + + | Ethnic Group | Unknown | + + + Author + + + | Author | [facility] | | | and [place] | + + + | Organization | [facility] | | | and [place] | | | | | [address] | | + + + + + | Han Tom | ECON | [address] | | | | | [place] | | | | | [address] | | + + + + + Care Team Providers + +------+ + | Care Bakery Worker Name | Role | Phone | + +------+ + | Alfred Jones MD | PCP | | + +------+ + Encounter Details +--------+ + + + + | Date | Type | Department | Care Team | Description | +--------+ + + + + | 07/23/ | Hospital | [facility] | John Chamberlain MD | | | 2014 - | Encounter | MED CTR ICU [address] | [address] | | | | | [place], | [place], [place] | | | 07/24/ | | [place] [address] | [address] | | | 2013 | | [phone] | | | +--------+ + + + [...] John Chamberlain MD - 07/24/2013 12:57 [place] [address] Patient Name: NAYELY TOM Provider: John Chamberlain MD Unit #: [id number] Location: [address] [place] [address] #: [id number] : 1930 ADMISSION DATE: 07/23/2013 DISCHARGE DATE: [...] atrial fibrillation versus SVT on presentation to [facility]. With her initial dose of sotalol, she [...] John Chamberlain MD Internal Medicine JOB #: [id number] EXT JOB #:[id number] cc: Dedrick Smalls MD <<Signature on File>> [...] (H) | 7 - 18 mg/dL | [facility] | | | | | [facility] | | | | | | MEDICAL | | | | | | CENTER - | | | | | | LABORATORY | | + + + + + + | Creatinine | 0.65 | 0.60 - 1.30 | [facility] | | | | | mg/dL | [facility] | | | | | | MEDICAL | | | | | | CENTER - | | | | | | LABORATORY | | + + + + + + | Estimated | >60Comment: For | >60 mL/min/A | [facility] | | | GFR | -Americans, | [...] 40.0 (H) | 12 - 20 | [facility] [...] | 11.1 | 6.0 - 17.0 | [facility] | [...] + | [facility] | [address] | [place], [place] | [phone] | | [facility] | | [address] | | | - LABORATORY | | | | + + + + + | [facility] | [address] | [place] | | | [facility] | | [address] | | | - LABORATORY [...] The | | | | | | [employer] | | | | | [...] + | [facility] | [address] | [place], [place] | [phone] | | [facility] | | [address] | | | - LABORATORY | | | | + + + + + | [facility] | [address] | [place], [place] | | | [facility] | | [address] [place] [address] | | | - LABORATORY | | [...] ST. | [address] | [place] | [phone] | | [facility] | | [address] | | | - LABORATORY | | [...] | | METHOD [address] | | | [facility] | | [...] + + + + + + | Clarity | CLEAR | | [facility] | | | | [...] - 1.030 | [facility] | | | Coy, | | | [facility] | | | Urine | | | MEDICAL | | | | | | CENTER - | | | | | | LABORATORY | | + + + + + + | Blood, | TRACE-INTACT | NEGATIVE | [facility] | | | Urine | | | [facility] | | | | | | MEDICAL [...] Culture | YESComment: REFLEXED TO | | [facility] | | | Indicated | URINE CULTURE. | | [facility] | | | | [...] [address] | [place] | [phone] | | [facility] | | [address] | | | - LABORATORY | | | | + + + + + | [facility] | [address] | [place] | | | [facility] | | [address], [facility] | | | - LABORATORY [...] (H) | 70 - 109 mg/dL | [facility] | | | | | | [facility] | | | | | | MEDICAL | | | | | | CENTER - | | | | | | LABORATORY | | + + + + + + | Calcium | 8.9 | 8.3 - 10.5 | [facility] | | | | | mg/dL | [facility] | | | | [...] | 0.86 | 0.60 - 1.30 | [facility] | [...] 138 | 136 - 149 mEq/L | [facility] | | | | | [...] + | [facility] | [address] | [place], [place] | [phone] | | [facility] | | [address] | | | - LABORATORY | | | | + + + + + | [facility] | [address] | [place], [place] | | | [facility] | | [address], [facility] | | | - LABORATORY [...] The | | | | | | [employer] | | | | | [...] [address] | [place] | [phone] | | [facility] | | [address] | | | - LABORATORY | | | | + + + + + | [facility] | [address] | [place] | | | [facility] | | [address] | | | - LABORATORY | | | | + + + + + Magnesium (07/23/2013 10:34 PM PST) + +-------+ + + + | Component | Value | Ref Range | Performed | Pathologist | | | | | At | Signature | + +-------+ + + + | Magnesium | 2.1 | 1.8 - 2.5 mg/dL | [facility] | | | | | | [facility] [...] + | [facility] | [address] | [place], [place] | [phone] | | [facility] | | [address] | | | - LABORATORY | | | | + + + + + | [facility] | [address] | [place], [place] | | | [facility] | | [id number] [place] [address] | | | - LABORATORY | | | | + + + + + documented in this encounter Visit Diagnoses Not on filedocumented in this encounter"
--- OUTSIDE RECORDS SUMMARY | ~2019-10-22 | XMS | Encounter Summary ---
Demographics + + + | Address | [address] | | | [place] [address] | + + + | Home Phone [...] + + + | Author | [facility] | | | and [place] | + + + | Organization | [facility] | | | and [place] | | | | | [address] | | + + + + + | Han Holt | ECON | [address] | | | | | [place] | | | | | [address] | | + + + + + Care Team Providers + +------+ + | Care Property Disposal Officer Name | Role | Phone | [...] | RN | | | | | [place], | | | | | | [place] [address] | | | | | | [phone] | | | +--------+ + + + [...]
--- OUTSIDE RECORDS SUMMARY | ~2019-10-22 | XMS | Encounter Summary ---
Demographics + + + | Address | [address] | | | [place] [address] | + + + | Home Phone | | + + + | Preferred Language | Unknown | + + + | Marital Status | | + + + | Evangelical Affiliation | 1077 | + + + | Race | Unknown | + + + | Ethnic Group | Unknown | + + + Author + + + | Author | [facility] | | | and [place] | + + + | Organization | [facility] | | | and [...] [place] | | | | | [address] | | + + + + + | Han Holt | ECON | [address] | | | | | [place] | | | | | [address] | | + + + + + Care Team Providers + +------+ + | Care Quill Skinner Name | Role | Phone | + [...] | | | IMAGING [address] | [address] | | | | | [address] [place] | [place] [address] | | | | | [place] [address] | | | | | | [phone] | | | +--------+ + + + [...]
--- OUTSIDE RECORDS SUMMARY | ~2019-10-22 | XMS | Encounter Summary ---
Demographics + + + | Address | [address] | | | [place] [address] | + + + | Home Phone | | + + + | Preferred Language | Unknown | + + + | Marital Status | | + + + | Baptism Affiliation | 1077 | + + + | Race | Unknown | + + + | Ethnic Group | Unknown | + + + Author + + + | Author | [facility] | | | and [place] | + + + | Organization | [facility] | | | and [...] [place] | | | | | [address] | | + + + + + | Han Holt | ECON | [address] | | | | | [place] | | | | | [address] | | + + + + + Care Team Providers + +------+ + | Care Clinical Staff Pharmacist Name | Role | Phone | + [...] + + | 08/03/ | Telephone | [facility] | Dada Grant, | LABS (Annual labs) | | 2014 | | CARDIOLOGY [address] | [address] [place] | | | | | [place], | [place], | | | | | [place] [address] | [place] [address] | | | | | [phone] | [phone] | | | | | | | [...]
--- OUTSIDE RECORDS SUMMARY | ~2019-10-22 | XMS | Encounter Summary ---
Demographics + + + | Address | [address] | | | [place] [address] | + + + | Home Phone | | + + + | Preferred Language | Unknown | + + + | Marital Status | | + + + | Amish Affiliation | 1077 | + + + | Race | Unknown | + + + | Ethnic Group | Unknown | + + + Author + + + | Author | [facility] | | | and [place] | + + + | Organization | [facility] | | | and [place] | | | | | [address] | | + + + + + | Han Holt | ECON | [address] | | | | | [place] | | | | | [address] | | + + + + + Care Team Providers + +------+ + | Care Air Defense Specialist Name | Role | Phone | [...] + + | 08/22/ | Telephone | [facility] | Yair, | Lab Order (due for | | 2015 | | CARDIOLOGY [address] | MAL[address] | fasting labs prior | | | | [place], | [place], | to appt) | | | | [place] [address] | [place] [address] | | | | | [phone] | [phone] | | | | | | | [...]
--- OUTSIDE RECORDS SUMMARY | ~2019-10-22 | XMS | Encounter Summary ---
Demographics + + + | Address | [address] | | | [place] [address] | + + + | Home Phone | | + + + | Preferred Language | Unknown | + + + | Marital Status | | + + + | Gnosticism Affiliation | 1077 | + + + | Race | Unknown | + + + | Ethnic Group | Unknown | + + + Author + + + | Author | [facility] | | | and [place] | + + + | Organization | [facility] | | | and [...] [place] | | | | | [address] | | + + + + + | Han Holt | ECON | [address] | | | | | [place] | | | | | [address] | | + + + + + Care Team Providers + +------+ + | Care Solar Installer Name | Role | Phone | + +------+ + | Alfred Jones MD | PCP | | + +------+ + Encounter Details +--------+ + + + + | Date | Type | Department | Care Team | Description | +--------+ + + + + | 03/13/ | Orders Only | [facility] [place] | Lupe Leblanc, | | | 2015 | | CARDIOLOGY [address] | RN | | | | | [place], | | | | | | [place] [address] | | | | | | [phone] | | | +--------+ + + + [...]
--- OUTSIDE RECORDS SUMMARY | ~2019-10-22 | XMS | Encounter Summary ---
Demographics + + + | Address | [address] | | | [place] [address] | + + + | Home Phone [...] Author | [facility] | | | and [place] | + + + | Organization | [facility] | | | and [place] [...] [place] | | | | | [address] | | + + + + + | Han Holt | ECON | [address] | | | | | [place] | | | | | [address] | | + + + + + Care Team Providers + +------+ + | Care Night Auditor Name | Role | Phone | + [...] + + | / | Telephone | [facility] | Dada Grant, | Other (Annual | | 2016 | | CARDIOLOGY [address] | [facility] | cardiology intake | | | | [place], | [place], | and annual labs) | | | | [place] [address] | [place] [address] | | | | | [phone] | [phone] | | | | | | | [...]
--- OUTSIDE RECORDS SUMMARY | ~2019-10-22 | XMS | Encounter Summary ---
Demographics + + + | Address | [address] | | | [place] [address] | + + + | Home Phone | | + + + | Preferred Language | Unknown | + + + | Marital Status | | + + + | Sikh Affiliation | 1077 | + + + | Race | Unknown | + + + | Ethnic Group | Unknown | + + + Author + + + | Author | [facility] | | | and [place] | + + + | Organization | [facility] | | | and [place] [...] [place] | | | | | [address] | | + + + + + | Han Tom | ECON | [address] | | | | | [place] | | | | | [address] | | + + + + + Care Team Providers + +------+ + | Care Mechanical Technician Name | Role | Phone | + +------+ + | Alfred Jones MD | PCP | | + +------+ + Encounter Details +--------+ + + + + | Date | Type | Department | Care Team | Description | +--------+ + + + + | 07/23/ | Hospital | [facility] | John Chamberlain MD | | | 2014 - | Encounter | MED CTR ICU [address] | [address] | | | | | [place], | [place], [place] | | | 07/24/ | | [place] [address] | [address] | | | 2013 | | [phone] | | | +--------+ + + + [...] John Chamberlain MD - 07/24/2013 12:57 [place] [address] Patient Name: NAYELY TOM Provider: John Chamberlain MD Unit #: [id number] Location: [address] [place] [address] #: [id number] : 1930 ADMISSION DATE: 07/23/2013 DISCHARGE DATE: [...] atrial fibrillation versus SVT on presentation to [facility]. With her initial dose of sotalol, [...] John Chamberlain MD Internal Medicine JOB #: [id number] EXT JOB #:[id number] cc: Dedrick Smalls MD <<Signature on File>> [...] (H) | 7 - 18 mg/dL | [facility] | | | | | | [facility] | | | | | | MEDICAL | | | | | | CENTER - | | | | | | LABORATORY | | + + + + + + | Creatinine | 0.65 | 0.60 - 1.30 | [facility] | | | | | mg/dL | [facility] | | | | | | MEDICAL | | | | | | CENTER - | | | | | | LABORATORY | | + + + + + + | Estimated | >60Comment: For | >60 mL/min/A | [facility] | | | GFR | -Americans, [...] + | [facility] | [address] | [place], [place] | [phone] | | [facility] | | [address] | | | - LABORATORY | | | | + + + + + | [facility] | [address] | [place] | | | [facility] | | [id number] | | | - LABORATORY | | [...] The | | | | | | [employer] | | | | | [...] + | [facility] | [address] | [place], [place] | [phone] | | [facility] | | [address] | | | - LABORATORY | | | | + + + + + | [facility] | [address] | [place], [place] | | | [facility] | | [address] [place] [address] | | | - LABORATORY | | [...] ST. | [address] | [place] | [phone] | | [facility] | | [address] | | | - LABORATORY | | [...] - 1.030 | [facility] | | | [place], | | | [facility] | | [address] | [place] | [phone] | | [facility] | | [address] | | | - LABORATORY | | | | + + + + + | [facility] | [address] | [place] | | | [facility] | | [address], [facility] | | | - LABORATORY [...] | | | | | mg/dL | [facility] | | | | | | [...] + | [facility] | [address] | [place], [place] | [phone] | | [facility] | | [address] | | | - LABORATORY | | | | + + + + + | [facility] | [address] | [place], [place] | | | [facility] | | [address], [facility] | | | - LABORATORY [...] The | | | | | | [employer] | | | | | [...] [address] | [place] | [phone] | | [facility] | | [address] | | | - LABORATORY | | | | + + + + + | [facility] | [address] | [place] | | | [facility] | | [id number] | | | - LABORATORY | | [...] + | [facility] | [address] | [place], [place] | [phone] | | [facility] | | [address] | | | - LABORATORY | | | | + + + + + | [facility] | [address] | [place], [place] | | | [facility] | | [id number] [place] [address] | | | - LABORATORY | | | | + + + + + documented in this encounter Visit Diagnoses Not on filedocumented in this encounter"
--- OUTSIDE RECORDS SUMMARY | ~2019-10-22 | XMS | Encounter Summary ---
Demographics + + + | Address | [address] | | | [place] [address] | + + + | Home Phone [...] | Author | [facility] | | | and [place] | + + + | Organization | [facility] | | | and [place] | [...] [place] | | | | | [address] | | + + + + + | Han Holt | ECON | [address] | | | | | [place] | | | | | [address] | | + + + + + Care Team Providers + +------+ + | Care Canvas Repairer Name | Role | Phone | [...] | 08/28/ | Telephone | [facility] [place] | Yair | KAREN | | 2018 | | CARDIOLOGY [address] | MALIK Bangura [address] | | | | | [place], | [place], | | | | | [place] [address] | [place] [address] | | | | | [phone] | [phone] | | | | | | | [...]
--- OUTSIDE RECORDS SUMMARY | ~2019-10-22 | XMS | Encounter Summary ---
Demographics + + + | Address | [address] | | | [place] [address] | + + + | Home Phone [...] + | Author | [facility] | | | and [place] | + + + | Organization | [facility] | | [...] [place] | | | | | [address] | | + + + + + | Han Holt | ECON | [address] | | | | | [place] | | | | | [address] | | + + + + + Care Team Providers + +------+ + | Care Chucking Machine Operator Name | Role | Phone [...] [address] | | | | | [place], | [place], | | | | | [place] [address] | [place] [address] | | | | | [phone] | | | | | | | [...]
--- OUTSIDE RECORDS SUMMARY | ~2019-10-22 | XMS | Encounter Summary ---
Demographics + + + | Address | [address] | | | [place] [address] | + + + | Home Phone | | + + + | Preferred Language | Unknown | + + + | Marital Status | | + + + | Shinto Affiliation | 1077 | + + + | Race | Unknown | + + + | Ethnic Group | Unknown | + + + Author + + + | Author | [facility] | | | and [place] | + + + | Organization | [facility] | [...] [place] | | | | | [address] | | + + + + + | Han Holt | ECON | [address] | | | | | [place] | | | | | [address] | | + + + + + Care Team Providers + +------+ + | Care Supervisor Tunnel Heading Name | Role | Phone | + [...] | 01/19/ | Refill | [facility] [place] | Dada Grant, | Medication Refill | | 2012 | | CARDIOLOGY [address] | MD [address] | | | | | [place], | [place], | | | | | [place] [address] | [place] [address] | | | | | [phone] | [phone] | | | | | | | [...]
--- OUTSIDE RECORDS SUMMARY | ~2019-10-22 | XMS | Encounter Summary ---
Demographics + + + | Address | [address] | | | [place] [address] | + + + | Home Phone | | + + + | Preferred Language | Unknown | + + + | Marital Status | | + + + | Samaritan Affiliation | 1077 | + + + | Race | Unknown | + + + | Ethnic Group | Unknown | + + + Author + + + | Author | [facility] | | | and [place] | + + + | Organization | [facility] | | | and [...] [place] | | | | | [address] | | + + + + + | Han Holt | ECON | [address] | | | | | [place] | | | | | [address] | | + + + + + Care Team Providers + +------+ + | Care Maintenance And Utilities Supervisor Name | Role | Phone | [...] [address] | | | | | [place], | [place], | | | | | [place] [address] | [place] [address] | | | | | [phone] | [phone] | | | | | | | [...] Comment | + + | [facility] | + + + +---------+ + + [...] Comment | + + | [facility] | + + + +---------+ + + [...] Comment | + + | [facility] | + + + +---------+ + + [...] Comment | + + | [facility] | + + + +---------+ + + [...] Comment | + + | [facility] | + + + +---------+ + + [...] Comment | + + | [facility] | + + + +---------+ + + [...] Comment | + + | [facility] | + + + +---------+ + + [...] Comment | + + | [facility] | + + + +---------+ + + [...] Comment | + + | [facility] | + + + +---------+ + + [...] Comment | + + | [facility] | + + + +---------+ + + [...] Comment | + + | [facility] | + + + +---------+ + + [...] Comment | + + | [facility] | + + + +---------+ + + [...] ST. | [address] | [place] | [phone] | | [facility] | | [address] | | | - LABORATORY | [...]
--- OUTSIDE RECORDS SUMMARY | ~2019-10-22 | XMS | Encounter Summary ---
Demographics + + + | Address | [address] | | | [place] [address] | + + + | Home Phone [...] | Author | [facility] | | | and [place] | + + + | Organization | [facility] | | | and [...] [place] | | | | | [address] | | + + + + + | Han Holt | ECON | [address] | | | | | [place] | | | | | [address] | | + + + + + Care Team Providers + +------+ + | Care Lead Sprinkler Name | Role | Phone | + [...] + | 09/02/ | Office | [facility] | [place], | Paroxysmal atrial | | 2017 | Visit | CARDIOLOGY [address] | MALIK Bangura [address] | fibrillation (HCC) | | | | [place], | [place], | (Primary Dx); | | | | [place] [address] | [place] [address] | Paroxysmal | | | | [phone] | [phone] | supraventricular | | | | | [...] RESULTS reviewed during visit today primarily from [facility]: LIPID Lab Results Component Value [...] PLTEX 217 08/25/2015 I reviewed records from [facility] for office visit on 08/28/2015 which is [...] She is in class I of the [place] [employer] functional class. There is no [...] and Female Gender (1), giving her a [id number] of 2, estimating a 2=2.2% risk of [...] this chart may have been created with [employer] voice recognition software. Occasi onal wrong-word or [...] | | | | | | 28-AUG-2015 16:[place] | | | | | | interval has | | | | | | increasedConfirmed by | | | | | | GIACOMO PIEDRA MD | | | | | | ([id number]) on 09/03/2016 | | | | | [...]
--- OUTSIDE RECORDS SUMMARY | ~2019-10-22 | XMS | Encounter Summary ---
Demographics + + + | Address | [address] | | | [place] [address] | + + + | Home Phone [...] [facility] | | | and [place] | + + + | Organization | [facility] | | | and [...] [place] | | | | | [address] | | + + + + + | Han Holt | ECON | [address] | | | | | [place] | | | | | [address] | | + + + + + Care Team Providers + +------+ + | Care City Marshal Name | Role | Phone | + [...] | Office | [facility] [place] | [place], | Palpitations | | 2016 | Visit | CARDIOLOGY [address] | MALIK Bangura [address] | (Primary Dx); | | | | [place], | [place], | Paroxysmal atrial | | | | [place] [address] | [place] [address] | fibrillation (HCC); | | | | [phone] | [phone] | Paroxysmal | | | | | [...] PLTEX 217 08/25/[address] records [address] [facility] for office visit on 07/2014. ASSESSMENT: [...] i s in class I of the [place] Heart [employer] functional class. There is no [...] Female Gende r (1), giving her a [id number] of 2, estimating a 2=2.2% risk of [...] this chart may have been created with [email or web address] voice recognition software. Occasi onal wrong-word or [...] MD | | | | | | ([id number]) on 08/28/2015 | | | | | [...]
--- OUTSIDE RECORDS SUMMARY | ~2019-10-22 | XMS | Encounter Summary ---
Demographics + + + | Address | [address] | | | [place] [address] | + + + | Home Phone | | + + + | Preferred Language | Unknown | + + + | Marital Status | | + + + | Voodoo Affiliation | 1077 | + + + | Race | Unknown | + + + | Ethnic Group | Unknown | + + + Author + + + | Author | [facility] | | | and [place] | + + + | Organization | [facility] | | | [...] [place] | | | | | [address] | | + + + + + | Han Holt | ECON | [address] | | | | | [place] | | | | | [address] | | + + + + + Care Team Providers + +------+ + | Care Plastic Joint Maker Name | Role | Phone | + [...] + + | 08/04/ | Office | [facility] | Dada Grant, | PSVT (paroxysmal | | 2015 | Visit | CARDIOLOGY [address] | [address] | supraventricular | | | | [place], | [place], | tachycardia) ([facility]) | | | | [place] [address] | [place] [address] | (Primary Dx); A-fib | | | | [phone] | [phone] | ([facility]); Palpitations; | | | | | | Atrial fibrillation | | | | | | ([facility]); Paroxysmal | | | | | | supraventricular | | | | | | tachycardia ([facility]) | +--------+---------+ + + + Social History [...] as needed. 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 She stated that s he would [...] She is in class I of the [place] [employer] functional class. There is no [...] year. Electronically signed by: Dada Grant MD [facility] 08/04/2014 Portions of this chart may have been created with [employer] voice recognition software. Occasi onal wrong-word or [...] | | | | | | tachycardia) ([facility]) | | | | | | A-fib ([facility]) | | | | | | Palpitations | | + +------+--------+ + + documented as of this encounter Visit Diagnoses + + | Diagnosis | + + | PSVT (paroxysmal supraventricular tachycardia) ([facility]) - Primary Paroxysmal | | supraventricular tachycardia | + + | A-fib ([facility]) Atrial fibrillation | + + | Palpitations | + + | Atrial fibrillation (HCC) Atrial fibrillation | + + | Paroxysmal supraventricular tachycardia (HCC) Paroxysmal supraventricular tachycardia | + + documented in this encounter
--- OUTSIDE RECORDS SUMMARY | ~2019-10-22 | XMS | Encounter Summary ---
Demographics + + + | Address | [address] | | | [place] [address] | + + + | Home Phone | | + + + | Preferred Language | Unknown | + + + | Marital Status | | + + + | Caodaism Affiliation | 1077 | + + + | Race | Unknown | + + + | Ethnic Group | Unknown | + + + Author + + + | Author | [facility] | | | and [place] | + + + | Organization | [facility] | [...] [place] | | | | | [address] | | + + + + + | Han Holt | ECON | [address] | | | | | [place] | | | | | [address] | | + + + + + Care Team Providers + +------+ + | Care Manager Utilities Name | Role | Phone | + [...] + + | 03/07/ | Refill | [facility] | Dada Grant, | Medication Refill | | 2013 | | [address] | [address] [facility] | | | | | [facility] | [facility], | | | | | [place] [address] | [place] [address] | | | | | [phone] | [phone] | | | | | | | [...]
--- OUTSIDE RECORDS SUMMARY | ~2019-10-22 | XMS | Clinical Summary ---
Demographics + + + | Address | [address] | | | [place] [address] | + + + | Home Phone [...] + | Author | [facility] | | | and [place] | + + + | Organization | [facility] | | | and [...] [place] | | | | | [address] | | + + + + + | Han Holt | ECON | [address] | | | | | [place] | | | | | [address] | | + + + + + Care Team Providers + +------+ + | Care Back Hoe Operator Name | Role | Phone | [...] recent travel history available. | + + Last Filed Vital Signs + [...] | | | Dtap/Tdap/Td (1 - | 1 | | | | Tdap) | | | | + + + + + | Vaccine: Zoster (1 | | | | | of 2) | 0 | | | + + + + + | Vaccine: | | | | | Pneumococcal 65+ (1 | 5 | | | | of 2 - PCV13) | | | | + + + + + | Adult Annual | | | | | Wellness Visit | 5 | | | + + + + + | Vaccine: Influenza | | 04/28/2018 | | | (Season Ended) | 0 | | | + + [...] +--------+ +---------+--------+ | MEDICARE | MEDICA | [id number] | | [phone] | | Medica | | | RE | | 995-Pr | 5 | | re | | | PART A | | esent | | | | | | AND B | | | | | | + +--------+ +--------+ +---------+--------+ | AARP | AARP | [id number] | 10/15/19 | [phone] | | Indemn [...] | Self | [birth year] | [address] | | | al/Fam | | 1930 | [phone] | [place] [address] | | | [place] | | | 6 (Home) | | + +--------+ +--------+ + + Advance Directives + + + + + | Type | Date Recorded | Patient | Explanation | | | | Bindery Technician | | + + + + + | Power of | | | | | Bulldozer/Loader/Compactor/Scraper | | | | + + + + + | Advance | | | | | Directive | | | | + + + + +
--- OUTSIDE RECORDS SUMMARY | ~2019-10-22 | XMS | Encounter Summary ---
Demographics + + + | Address | [address] | | | [place] [address] | + + + | Home Phone | | + + + | Preferred Language | Unknown | + + + | Marital Status | | + + + | Caodaism Affiliation | 1077 | + + + | Race | Unknown | + + + | Ethnic Group | Unknown | + + + Author + + + | Author | [facility] | | | and [place] | + + + | Organization | [facility] | | | and [place] [...] [place] | | | | | [address] | | + + + + + | Han Holt | ECON | [address] | | | | | [place] | | | | | [address] | | + + + + + Care Team Providers + +------+ + | Care Sole Tacker Name | Role | Phone | + [...] | 01/19/ | Refill | [facility] [place] | Dada Grant, | Medication Refill | | 2012 | | CARDIOLOGY [address] | MD [address] [place] | | | | | [place], | [place], | | | | | [place] [address] | [place] [address] | | | | | [phone] | [phone] | | | | | | | [...]
--- OUTSIDE RECORDS SUMMARY | ~2019-10-22 | XMS | Encounter Summary ---
Demographics + + + | Address | [address] | | | [place] [address] | + + + | Home Phone | | + + + | Preferred Language | Unknown | + + + | Marital Status | | + + + | Pentecostalism Affiliation | 1077 | + + + | Race | Unknown | + + + | Ethnic Group | Unknown | + + + Author + + + | Author | [facility] | | | and [place] | + + + | Organization | [facility] | | | and [...] [place] | | | | | [address] | | + + + + + | Han Holt | ECON | [address] | | | | | [place] | | | | | [address] | | + + + + + Care Team Providers + +------+ + | Care Process Maintenance Technician Name | Role | Phone | + +------+ + | Alfred Jones MD | PCP | | + +------+ + Encounter Details +--------+ + + + + | Date | Type | Department | Care Team | Description | +--------+ + + + + | 08/15/ | Orders Only | [facility] | [place], | Paroxysmal atrial | | 2016 | | CARDIOLOGY [address] | [employer] [facility] [address] | fibrillation (HCC) | | | | [place], | [place], | (Primary Dx); | | | | [place] [address] | [place] [address] | Paroxysmal | | | | [phone] | [phone] | supraventricular | | | | | [...] SUWONG | | | | | | ([id number]) on 08/28/2015 | | | | | [...]
--- OUTSIDE RECORDS SUMMARY | ~2019-10-22 | XMS | Encounter Summary ---
Demographics + + + | Address | [address] | | | [place] [address] | + + + | Home Phone | | + + + | Preferred Language | Unknown | + + + | Marital Status | | + + + | Sabianism Affiliation | 1077 | + + + | Race | Unknown | + + + | Ethnic Group | Unknown | + + + Author + + + | Author | [facility] | | | and [place] | + + + | Organization | [facility] | [...] [place] | | | | | [address] | | + + + + + | Han Holt | ECON | [address] | | | | | [place] | | | | | [address] | | + + + + + Care Team Providers + +------+ + | Care Customer Contact Specialist Name | Role | Phone | + +------+ + PCP | Unavailable | + +------+ + Encounter Details +--------+ + + + + | Date | Type | Department | Care Team | Description | +--------+ + + + + | 04/02/ | Hospital | [facility] | | | | 2010 - | Encounter | [facility] | | | | | | [address] | | | | 04/04/ | | [place] [id number] | | | | 2010 | | [phone] | | | +--------+ + + + [...] as of this encounter Discharge Summaries Aly Toriboi MD - 04/02/2011 5:48 PM PDTADMISSION DATE: 04/02/2011 DISCHARGE DATE: 04/04/2011 HOSPITALIST DISCHARGE SUMMARY PRIMARY CARE PHYSICIAN: Alfred Jones MD LEAD PROGRAMMER: Dada Grant MD, [facility] DISCHARGE DIAGNOSES 1. PAROXYSMAL ATRIAL FIBRILLATION. 2. TRANSIENT SINUS NODE PAUSE. 3. 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 4. ANXIETY. DISCHARGE MEDICATIONS 1. Sotalol 40 mg b.i.d. 2. Warfarin 5 mg daily. 3. Ecotrin 81 mg daily. 4. Neosporin ointment t.i.d. ALLERGIES: NO KNOWN DRUG ALLERGIES. HOSPITAL COURSE: An 80-year-old female came in with long history of paroxysmal at [facility]. She had been symptomatic recently with weakness, dyspnea, and palpitati ons. She had stress t est, including drug stress nuclear, and echocardiogram, which were laura th negative on the day prior to admission. She had held her atenolol for stress test, and t mike that evening taken the atenolol, but d eveloped tachy arrhythmia. [facility], they gave her Diltiazem IV and noted 2 to 3-second sinus pause. With concerns that she may require emergent pacemaker, she was transferred t o [facility]. The patient's rhythm was reviewed and I [...] Grant on 04/16/2011, at 12:15, phone number [phone]. Heart-heal thy diet. Activity as tolerated. Return [...] BY: Aly Toribio MD Hospitalist JOB #: [id number] EXT JOB #:[id number] cc: MD Dada Ochoa MD, [facility] <Electronically Signed by Aly Toribio MD> 04/17/112034 [...] + | [facility] | [address] | [place], [place] | [phone] | | [facility] | | [address] | | | - LABORATORY | | | | + + + + + | [facility] | [address] | [place], [place] | | | [facility] | | [id number] [place] [address] | | | - LABORATORY | | [...] + | [facility] | [address] | [place] | [phone] | | [facility] | | [address] | | | - LABORATORY | | | | + + + + + | [facility] | [address] | [place], [place] | | | [facility] | | [id number] | | | - LABORATORY [...] + | [facility] | [address] | [place] | [phone] | | [facility] | | [address] | | | - LABORATORY | | | | + + + + + | [facility] | [address] | [place], [place] | | | [facility] | | [id number] | | | - LABORATORY | | [...] + + | Performing | Address | City/Va Hospital/Zipcode | Phone Number | | Organization | | | | + + + + + | [facility] | [address] | [place], [place] | [phone] | | [facility] | | [address] | | | - LABORATORY | | | | + + + + + | [facility] | [address] | [place], [place] | | | [facility] | | [address], [facility] | | | - LABORATORY | | [...] 17 | 7 - 18 mg/dL | [facility] | | | | | | ST. [...] | >60Comment: For | >60 mL/min/A | [facility] | | | GFR | -Americans, [...] + | [facility] | [address] | [place], [place] | [phone] | | [facility] | | [address] | | | - LABORATORY | | | | + + + + + | [facility] | [address] | [place], [place] | | | [facility] | | [address], [facility] | | | - LABORATORY | | [address] | [place] | [phone] | | [facility] | | [address] | | | - LABORATORY | | | | + + + + + | [facility] | [address] | [place], [place] | | | [facility] | | [address], [facility] | | | - LABORATORY | | [...] performed on the Leticia | uIU/mL | [facility] | | | | [facility] | [...] + | [facility] | [address] | [place], [place] | [phone] | | [facility] | | [address] | | | - LABORATORY | | | | + + + + + | [facility] | [address] | [place], [place] | | | [facility] | | [id number] [place] [address] | | | - LABORATORY | | [...] ST. | [address] | [place] | [phone] | | [facility] | | [address] | | | - LABORATORY | | | | + + + + + XR Chest AP Portable (04/02/2011 5:48 PM PDT) + + | Specimen | + + | | + + + + + | Narrative | Performed At | + + + | [facility] Diagnostic Imaging Department | [facility] | | [address] [facility] | [facility] | | PORTABLE CHEST, SINGLE AP VIEW [...] Transcribed Date/Time: 04/03/2011 | | | 08:18 Brake Operator: ISSAC <Electronically Signed by João Lindo | | | MD Jacek> 04/03/11 1649 | | + + + + + | Procedure Note | + + | Naman, Rad Conversion - 07/23/2013 4:03 PM [facility] | | Diagnostic Imaging Department [address] [place] [address] | | PORTABLE CHEST, SINGLE AP VIEW [...] <Electronically Signed by João Read MD> 04/03/11 2482 | |FINDINGS: Surgical clips are noted in [...] 08:15 | |Transcribed Date/Time: 04/03/2011 08:18 | |Brake Operator: | |<Electronically Signed by João Read MD> [...]
--- OUTSIDE RECORDS SUMMARY | ~2019-10-22 | XMS | Clinical Summary ---
Demographics + + + | Address | [address] | | | [place] [address] | + + + | Home Phone [...] Author | [facility] | | | and [place] | + + + | Organization | [facility] | | | and [...] [place] | | | | | [address] | | + + + + + | Han Holt | ECON | [address] | | | | | [place] | | | | | [address] | | + + + + + Care Team Providers + +------+ + | Care Group Burner Machine Name | Role | Phone | + [...] +--------+ +---------+--------+ | MEDICARE | MEDICA | [id number] | | [phone] | | Medica | | | RE | | [phone]-Pr | 5 | | re | | | PART A | | esent | | | | | | AND B | | | | | | + +--------+ +--------+ +---------+--------+ | AARP | AARP | [id number] | 10/15/19 | [phone] | | Indemn [...] | | al/Fam | | 1930 | [phone] | [place] [address] | | | [place] | | | 6 (Home) | | + +--------+ +--------+ + + Advance Directives + + + + + | Type | Date Recorded | Patient | Explanation | | | | Monogram Operator | | + + + + + | Power of | | | | | Rim Fire Priming Tool Setter | | | | + + + + + | Advance | | | | | Directive | | | | + + + + +
--- OUTSIDE RECORDS SUMMARY | ~2019-10-22 | XMS | Encounter Summary ---
Demographics + + + | Address | [address] | | | [place] [address] | + + + | Home Phone [...] Author | [facility] | | | and [place] | + + + | Organization | [facility] | | | and [...] [place] | | | | | [address] | | + + + + + | Han Holt | ECON | [address] | | | | | [place] | | | | | [address] | | + + + + + Care Team Providers + +------+ + | Care Hose Tender Name | Role | Phone | [...] | | CARDIOLOGY [address] | MALIK [address] | | | | | [place], | [place], | | | | | [place] [address] | [place] [address] | | | | | [phone] | | | | | | | [...]
--- OUTSIDE RECORDS SUMMARY | ~2019-10-22 | XMS | Encounter Summary ---
Demographics + + + | Address | [address] | | | [place] [address] | + + + | Home Phone | | + + + | Preferred Language | Unknown | + + + | Marital Status | | + + + | Cheondoism Affiliation | 1077 | + + + | Race | Unknown | + + + | Ethnic Group | Unknown | + + + Author + + + | Author | [facility] | | | and [place] | + + + | Organization | [facility] | | | and [...] [place] | | | | | [address] | | + + + + + | Han Holt | ECON | [address] | | | | | [place] | | | | | [address] | | + + + + + Care Team Providers + +------+ + | Care Post Closer Name | Role | Phone | + [...] | 04/24/ | Refill | [facility] | Dada Grant, | Medication Refill | | 2011 | | CARDIOLOGY [address] | MD [address] | | | | | [place], | [place], | | | | | [place] [address] | [place] [address] | | | | | [phone] | [phone] | | | | | | | [...]
--- OUTSIDE RECORDS SUMMARY | ~2019-10-22 | XMS | Encounter Summary ---
Demographics + + + | Address | [address] | | | [place] [address] | + + + | Home Phone [...] [facility] | | | and [place] | + + + | Organization | [facility] | [...] [place] | | | | | [address] | | + + + + + | Han Holt | ECON | [address] | | | | | [place] | | | | | [address] | | + + + + + Care Team Providers + +------+ + | Care Apartment Leasing Consultant Name | Role | Phone | + +------+ + PCP | Unavailable | + +------+ + Encounter Details +--------+ + + + + | Date | Type | Department | Care Team | Description | +--------+ + + + + | 05/15/ | Hospital | [facility] | [place], [place], | | | 2006 | Encounter | MED CTR MP INTRA OP | [address] | | | | | [address] | [place], [place] | | | | | [place], [place] | [address] | | | | | [address] | | | | | | [phone] | | | +--------+ + + + [...]
--- OUTSIDE RECORDS SUMMARY | ~2019-10-22 | XMS | Encounter Summary ---
Demographics + + + | Address | [address] | | | [place] [address] | + + + | Home Phone | | + + + | Preferred Language | Unknown | + + + | Marital Status | | + + + | Sabianism Affiliation | 1077 | + + + | Race | Unknown | + + + | Ethnic Group | Unknown | + + + Author + + + | Author | [facility] | | | and [place] | + + + | Organization | [facility] | | | and [place] [...] [place] | | | | | [address] | | + + + + + | Han Holt | ECON | [address] | | | | | [place] | | | | | [address] | | + + + + + Care Team Providers + +------+ + | Care Solution Advisor Name | Role | Phone | + [...] + | 04/22/ | Telephone | [facility] | Dada Grant, | Appointment | | 2013 | | CARDIOLOGY [address] | MD [address] | | | | | [place], | [place], | | | | | [place] [address] | [place] [address] | | | | | [phone] | [phone] | | | | | | | [...]
--- OUTSIDE RECORDS SUMMARY | ~2019-10-22 | XMS | Encounter Summary ---
Demographics + + + | Address | [address] | | | [place] [address] | + + + | Home Phone [...] | Author | [facility] | | | and [place] | + + + | Organization | [facility] | | | [...] [place] | | | | | [address] | | + + + + + | Han Holt | ECON | [address] | | | | | [place] | | | | | [address] | | + + + + + Care Team Providers + +------+ + | Care Hot Top Liner Name | Role | Phone | + [...] [address] | | | | | [place], | [place], | | | | | [place] [address] | [place] [address] | | | | | [phone] | [phone] | | | | | | | [...] | EXTERNAL LAB: [facility] | Routin | 08/30/2016 | | Results [...] +-------+ + + + | MARCELLA, | 17 | 6 - 23 | EXTERNAL | | | External | | | LAB | | + +-------+ + + + + + | Resulting Agency Comment | + + | [facility] | + + + +---------+ + + [...] Comment | + + | [facility] | + + + +---------+ + + [...] Comment | + + | [facility] | + + + +---------+ + + | Performing | Address | City/State/Zipcode | Phone Number | | Organization | | | | + +---------+ + + | EXTERNAL LAB | | | | + +---------+ + + External Lab: AST (08/30/2016 2:17 PM PDT) + +-------+ + [...] Comment | + + | [facility] | + + + +---------+ + + [...] Comment | + + | [facility] | + + + +---------+ + + [...] Comment | + + | [facility] | + + + +---------+ + + [...] Comment | + + | [facility] | + + + +---------+ + + [...] Comment | + + | [facility] | + + + +---------+ + + [...] Comment | + + | [facility] | + + + +---------+ + + [...] Comment | + + | [facility] | + + + +---------+ + + [...] Comment | + + | [facility] | + + + +---------+ + + [...] Comment | + + | [facility] | + + + +---------+ + + [...] Comment | + + | [facility] | + + + +---------+ + + [...] Comment | + + | [facility] | + + + +---------+ + + [...] Comment | + + | [facility] | + + + +---------+ + + [...]
--- OUTSIDE RECORDS SUMMARY | ~2019-10-22 | XMS | Encounter Summary ---
Demographics + + + | Address | [address] | | | [place] [address] | + + + | Home Phone | | + + + | Preferred Language | Unknown | + + + | Marital Status | | + + + | Moravian Affiliation | 1077 | + + + | Race | Unknown | + + + | Ethnic Group | Unknown | + + + Author + + + | Author | [facility] | | | and [place] | + + + | Organization | [facility] | | | and [...] [place] | | | | | [address] | | + + + + + | Han Holt | ECON | [address] | | | | | [place] | | | | | [address] | | + + + + + Care Team Providers + +------+ + | Care Nonprofit Financial Controller Name | Role | Phone | [...] | RN | | | | | [place], | | | | | | [place] [address] | | | | | | [phone] | | | +--------+ + + + [...]
--- OUTSIDE RECORDS SUMMARY | ~2019-10-22 | XMS | Encounter Summary ---
Demographics + + + | Address | [address] | | | [place] [address] | + + + | Home Phone [...] | Author | [facility] | | | and [place] | + + + | Organization | [facility] | | | and [place] [...] [place] | | | | | [address] | | + + + + + | Han Holt | ECON | [address] | | | | | [place] | | | | | [address] | | + + + + + Care Team Providers + +------+ + | Care Fibreglass Gun Hand Name | Role | Phone | + +------+ + PCP | Unavailable | + +------+ + Encounter Details +--------+ + + + + | Date | Type | Department | Care Team | Description | +--------+ + + + + | 05/15/ | Hospital | [facility] | [place], [place], | | | 2006 | Encounter | MED CTR MP INTRA OP | [address] | | | | | [address] | [place], [place] | | | | | [place], [place] | [address] | | | | | [address] | | | | | | [phone] | | | +--------+ + + + [...]
--- OUTSIDE RECORDS SUMMARY | ~2019-10-22 | XMS | Encounter Summary ---
Demographics + + + | Address | [address] | | | [place] [address] | + + + | Home Phone [...] Author | [facility] | | | and [place] | + + + | Organization | [facility] | | [...] [place] | | | | | [address] | | + + + + + | Han Holt | ECON | [address] | | | | | [place] | | | | | [address] | | + + + + + Care Team Providers + +------+ + | Care Science Analyst Name | Role | Phone | [...] [address] | | | | | [place], | [place], | | | | | [place] [address] | [place] [address] | | | | | [phone] | [phone] | | | | | | | [...] Comment | + + | [facility] | + + + +---------+ + + [...] Comment | + + | [facility] | + + + +---------+ + + [...] Comment | + + | [facility] | + + + +---------+ + + [...] Comment | + + | [facility] | + + + +---------+ + + [...] Comment | + + | [facility] | + + + +---------+ + + [...] Comment | + + | [facility] | + + + +---------+ + + [...] Comment | + + | [facility] | + + + +---------+ + + [...] Comment | + + | [facility] | + + + +---------+ + + [...] Comment | + + | [facility] | + + + +---------+ + + [...] Comment | + + | [facility] | + + + +---------+ + + [...] Comment | + + | [facility] | + + + +---------+ + + [...] Comment | + + | [facility] | + + + +---------+ + + [...] Comment | + + | [facility] | + + + +---------+ + + [...] Comment | + + | [facility] | + + + +---------+ + + [...] Comment | + + | [facility] | + + + +---------+ + + [...]
[~2019-10-22 22:13] MED LIST changes: +KEFLEX500 MG PO
[2019-10-22] MEDS ORDERED: SERTRALINE HCL50 MG PO (22:43)
--- NOTE | 2019-10-24 11:35 | EKG ---
[facility] [address] [place], [place] [address] Signed Sinus rhythm with 1st degree AV block Otherwise normal ECG No previous ECGs available Confirmed by SATISH MURPHY MD ([id number]) on 10/24/2019 11:34:51 AM Electronically Signed By: SATISH MURPHY MD 10/24/19 1135 PATIENT NAME: FREEMAN TOM Electrocardiogram DATE OF : [birth year] PHYSICIAN: SATISH MURPHY MD REPORT #: [id number] REPORT IS CONFIDENTIAL AND NOT TO BE RELEASED WITHOUT AUTHORIZATION
== END 2019-10-23 00:34 | disposition home or self-care (01) ==
LOC: ED 22:13
DX: I10 Essential (primary) hypertension (principal); Z79.899 Other long term (current) drug therapy
CPT/HCPCS: 71045; 80053; 83735; 84484; 85025; 93005; 93010; 99285-25

== ENCOUNTER 2020-02-08 19:33 | Emergency (ER) | payer MEDICARE ==
[~2020-02-08] VITALS: Ht 162.6 cm; Wt 46.7 kg
--- OUTSIDE RECORDS SUMMARY | ~2020-02-08 | XMS | Encounter Summary ---
Demographics + + + | Address | [address] | | | [place] [address] | + + + | Home Phone | | + + + | Preferred Language | Unknown | + + + | Marital Status | | + + + | Jehovah'S Witness Affiliation | 1077 | + + + | Race | White | + + + | Ethnic Group | Not or | + + + Author + + + | Author | [facility] | | | and [place] | + + + | Organization | [facility] | | | and [place] | + + + | Address | Unknown | + + + | Phone | Unavailable | + + + Support + + + + + | Name | Relationship | Address | Phone | + + + + + | Yury Kellas | ECON | [address] | | | | | [place] | | | | | [address] | | + + + + + | Han Holt | ECON | [address] | | | | | [place] | | | | | [address] | | + + + + + Care Team Providers + +------+ + | Care Senior Database Engineer Name | Role | Phone | + +------+ + | Alfred Jones MD | PCP | | + +------+ + Reason for Visit + + + | Reason | Comments | + + + | Annual Exam | Annual office visit (past due) EKG and ROS | + + + | Atrial Fibrillation | Paroxysmal | + + + | Hypertension | | + + + | Hyperlipidemia | | + + + Encounter Details +--------+---------+ + + + | Date | Type | Department | Care Team | Description | +--------+---------+ + + + | 03/09/ | Office | [facility] | Dada Grant, | Visit for annual | | 2012 | Visit | CARDIOLOGY [address] | [address] | health examination | | | | [place], | [place], | (Primary Dx); PSVT | | | | [place] [address] | [place] [address] | (paroxysmal | | | | [phone] | [phone] | supraventricular | | | | | | tachycardia) ([facility]); | | | | | | A-fib ([facility]); HTN | | | | | | (hypertension) | +--------+---------+ + + + Social History [...] + + | Comments: quit smoking in 9 | + + + + +---------+ + | Alcohol Use | Drinks/Week | oz/Week | Comments | + + +---------+ + | No | | | | + + +---------+ + + + + | Sex Assigned at | Date Recorded | | | | + + + | Not on file | | + + + documented as of this encounter Last Filed Vital Signs + + + + + | Vital Sign | Reading | Time Taken | Comments | + + + + + | Blood Pressure | 120/62 | 03/09/2013 1:05 PM | Right arm | | | | PDT | | + + + + + | Pulse | 62 | 03/09/2013 1:05 PM | Regular | | | | PDT | | + + + + + | Temperature | - | - | | + + + + + | Respiratory Rate | 16 | 03/09/2013 1:05 PM | | | | | PDT | | + + + + + | Oxygen Saturation | - | - | | + + + + + | Inhaled Oxygen | - | - | | | Concentration | | | | + + + + + | Weight | 54 kg (119 lb) | 03/09/2013 1:05 PM | | | | | PDT | | + + + + + | Height | 160.5 cm (5' 3.2") | 03/09/2013 1:05 PM | | | | | PDT | | + + + + + | Body Mass Index | 20.95 | 03/09/2013 1:05 PM | | | | | PDT | | + + + + + documented in this encounter Progress Notes Dada Grant MD - 03/09/2013 1:16 PM PDTFormatting of this note might be different f rom the original. Subjective: Cardiology Office Visit Date of Service: 03/09/2013 Patient ID: Nayely Holt is a 82 y.o. female. PCP: Alfred GUERRERO Nayely Holt is an 82-year-old female with a history of paroxysmal atrial fibrillation, hy pertension, anxiety disorder and hyperlipidemia. She is being seen today for a treatment o f her atrial fibrillation. She was last seen on 02/03/12 at which time patient was doing well with the plan to see her in one year. Since that time,patient has been doing pretty well. 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 She states she is o n her feet all the time at work. She also keeps up with her house and property. She reports having occasional palpitations w hen she uses her right hand that causes some vibration to her right shoulder. There is no c hest pain or chest discomfort both at rest and on exertion. Patient denies breathlessness. There is no dizziness or lightheadedness. Patient can sleep on one pillow at night wit hout difficulty breathing. There is no ankle or leg swelling. Patient Active Problem List Diagnosis VARICOSE VEIN IRRITABLE BOWEL SYNDROME, HX OF Atrial fibrillation Paroxysmal supraventricular tachycardia Palpitations Hyperlipidemia Past Surgical History Procedure Date Hammer toe surgery Bunion removal Shoulder surgery Right Cataract removal Bilateral Hysterectomy, total abdominal Cholecystectomy 2009 Appendectomy Bilateral dyer's neuroma History reviewed. No pertinent family history. Family Status Relation Status Age Father 86 stroke Mother 100 Sister Alive Sister stroke History Social History Marital Status: Spouse Name: Han Number of Children: 4 Years of Education: N/A Social History Main Topics Smoking status: Former Smoker Types: Cigarettes Smokeless tobacco: Never Used Comment: quit smoking in 1949 Alcohol Use: No Drug Use: No Sexually Active: None Other Topics Concern None Social History Narrative Exercise: None, but very activeCaffeine: 3 cups of coffee dailyLiving situation: with Delmi Current Outpatient Prescriptions Medication Status Sig Dispense Refill ALPRAZolam (XANAX) 0.25 mg tablet Active 1 tablet by mouth twice daily as needed sotalol (BETAPACE) 80 mg tablet Active take 1 tablet by mouth twice a day 60 tablet 6 No Known Allergies Review of Systems Constitutional: Negative for fever, chills, diaphoresis, activity change, appetite change, fatigue and unexpected weight change. HENT: Negative for hearing loss, nosebleeds, congestion, dental problem and tinnitus. Eyes: Negative for visual disturbance. Respiratory: Negative for apnea, cough, choking, chest tightness, shortness of breath, whee zing and stridor. Cardiovascular: Negative for chest pain, palpitations and leg swelling. Gastrointestinal: Negative for nausea, vomiting, abdominal pain, diarrhea, constipation, bl ood in stool, abdominal distention, anal bleeding and rectal pain. Genitourinary: Negative for urgency, frequency, hematuria, decreased urine volume and diffi culty urinating. Musculoskeletal: Negative for myalgias, back pain, joint swelling, arthralgias and gait pro blem. Skin: Negative for color change and rash. Neurological: Negative for dizziness, tremors, seizures, syncope, speech difficulty, weakne ss, light-headedness, numbness and headaches. Hematological: Negative for adenopathy. Does not bruise/bleed easily. Psychiatric/Behavioral: Negative for confusion, sleep disturbance and decreased concentrati on. The patient is not nervous/anxious. Objective: Physical Exam Constitutional: She is oriented to person, place, and time. She appears well-developed and well-nourished. No distress. Female individual without acute distress. HENT: Head: Normocephalic. Nose: Nose normal. Neck: Normal carotid pulses, no hepatojugular reflux and no JVD present. Carotid bruit is n ot present. No tracheal deviation present. Cardiovascular: Regular rhythm, S1 normal, S2 normal, normal heart sounds, intact distal pu lses and normal pulses. PMI is not displaced. Exam reveals no S3, no S4 and no friction ru b. No murmur heard. Pulmonary/Chest: Effort normal and breath sounds normal. She has no decreased breath sounds . She has no wheezes. She has no rhonchi. Abdominal: Normal appearance and normal aorta. She exhibits no distension and no abdominal bruit. There is no hepatosplenomegaly. There is no tenderness. Musculoskeletal: She exhibits no edema. Neurological: She is alert and oriented to person, place, and time. Gait normal. Psychiatric: She has a normal mood and affect. Her mood appears not anxious. BP 120/62 | Pulse 62 | Resp 16 | Ht 1.605 m (5' 3.2") | Wt 53.978 kg (119 lb) | BMI 20.95 k g/m2 ECG: normal sinus rhythm, first degree AV block, incomplete right bundle branch block. No results found for this basename: WBC, HBG, HCT, MCV, MCH, MCHC, PLTCOUNT, RBC No results found for this basename: glu, magn, na, K, CL, CO2, calcium, alkphos, ast, alt, bilitot, crea, BUN, EGFR, No results found for this basename: chol, trig, ldlcalc, hdl I personally reviewed records from another healthcare provider. Assessment: 1. Paroxysmal atrial fibrillation/paroxysmal supraventricular tachycardia with palpitation s: A. The echocardiogram from 04/01/11 revealed normal left ventricular size, LVEF 75%, grade 1 left ventricular diastolic dysfunction, trace MR, mild TR and mild pulmonary hypert ension, peak systolic pressure 40 mmHg. B. A normal Regadenoson SPECT MPI on 04/01/11. LVEF by gated SPECT was 84%. C. Long-term anticoagulations to minimize the risk of stroke was discussed. Mitchel 2 score is 1 for advanced age. She was on warfarin in the past and stopped taking it in 2, and is not willing to consider anticoagulation at this time. She is willing to take a ba by aspirin. She has a rare occasion of palpitations but remains very functional. She is in class I of the [place] [employer] functional class. There is no leg swelling on the physical exam. 2. Hypertension: A. And for him and Today her blood pressure is well-controlled. 3. History of anxiety disorder. 4. History of hyperlipidemia. A. No recent lipid profile and she doesn't want to know it. Plan: 1. She'll start baby aspirin 81 mg for a primary prevention of stroke and acute myocardial infarction. 2. Followup in one year. Portions of this report were transcribed using voice recognition software. Every effort wa s made to ensure accuracy; however, inadvertent computerized machine tool electrician errors may be pre sent. documented in this encounter Procedure Notes ONBASE SCAN [facility] - 03/09/2013 12:00 AM PDTAssociated Order(s): ECG - EXTERNAL SCANElectroni jason signed by jose luis [facility] at 03/11/2013 7:27 AM PDTdocumented in this encounter Miscellaneous Notes Miscellaneous - ONBASE SCAN [facility] - 03/09/2013 12:00 AM PDT documented in this encounter Plan of Treatment + +------+--------+ + + | Name | Type | Priori | Associated Diagnoses | Order Schedule | | | | ty | | | + +------+--------+ + + | ECG 12 lead | ECG | Routin | Visit for annual | Ordered: 03/09/2013 | | | | e | health examination | | | | | | PSVT (paroxysmal | | | | | | supraventricular | | | | | | tachycardia) (HCC) | | | | | | A-fib (HCC) HTN | | | | | | (hypertension) | | + +------+--------+ + + documented as of this encounter Procedures + +--------+ + + + | Procedure Name | Priori | Date/Time | Associated Diagnosis | Comments | | | ty | | | | + +--------+ + + + | ECG - EXTERNAL SCAN | | 03/09/2013 | | Results for this | | | | 12:00 AM | | procedure are in the | | | | PDT | | results section. | + +--------+ + + + documented in this encounter Results ECG - EXTERNAL SCAN (03/09/2013 12:00 AM PDT) + + + | Narrative | Performed At | + + + | Ordered by an | | | unspecified provider. | | + + + + + | Transcriptions | + + | Bryan Elias - 03/09/2013 12:00 AM PDT | + + documented in this encounter Visit Diagnoses + + | Diagnosis | + + | Visit for annual health examination - Primary Routine general medical examination at | | a health care facility | + + | PSVT (paroxysmal supraventricular tachycardia) (HCC) Paroxysmal supraventricular | | tachycardia | + + | A-fib (HCC) Atrial fibrillation | + + | HTN (hypertension) Unspecified essential hypertension | + + documented in this encounter
--- OUTSIDE RECORDS SUMMARY | ~2020-02-08 | XMS | Encounter Summary ---
Demographics + + + | Address | [address] | | | [place] [address] | + + + | Home Phone | | + + + | Preferred Language | Unknown | + + + | Marital Status | | + + + | Restoration Affiliation | 1077 | + + + | Race | White | + + + | Ethnic Group | Not or | + + + Author + + + | Author | [facility] | | | and [place] | + + + | Organization | [facility] | | [...] [place] | | | | | [address] | | + + + + + | Han Holt | ECON | [address] | | | | | [place] | | | | | [address] | | + + + + + Care Team Providers + +------+ + | Care Financial Services Consultant Name | Role | Phone | + +------+ + | Alfred Jones MD | PCP | | + +------+ + Encounter Details +--------+ + + + + | Date | Type | Department | Care Team | Description | +--------+ + + + + | 03/10/ | Orders Only | [facility] [place] | Lupe Leblanc, | | | 2013 | | CARDIOLOGY [address] | RN | | | | | [place], | | | | | | [place] [address] | | | | | | [phone] | | | +--------+ + + + [...]
--- OUTSIDE RECORDS SUMMARY | ~2020-02-08 | XMS | Encounter Summary ---
Demographics + + + | Address | [address] | | | [place] [address] | + + + | Home Phone | | + + + | Preferred Language | Unknown | + + + | Marital Status | | + + + | Islam Affiliation | 1077 | + + + | Race | White | + + + | Ethnic Group | Not or | + + + Author + + + | Author | [facility] | | | and [place] | + + + | Organization | [facility] | | | and [...] [place] | | | | | [address] | | + + + + + | Han Holt | ECON | [address] | | | | | [place] | | | | | [address] | | + + + + + Care Team Providers + +------+ + | Care Explosive Ordnance Disposal Manager Name | Role | Phone | + +------+ + | Alfred Jones MD | PCP | | + +------+ + Reason for Visit +--------+--------+ + | Reason | Onset | Comments | | | Date | | +--------+--------+ + | Other | 03/23/ | question about sotalol | | | 2013 | | +--------+--------+ + Encounter Details +--------+ + + + + | Date | Type | Department | Care Team | Description | +--------+ + + + + | 03/23/ | Telephone | [facility] | Dada Grant, | Other (question | | 2013 | | CARDIOLOGY [address] | [address] [place] | about sotalol) | | | | [place], | [place], | | | | | [place] [address] | [place] [address] | | | | | [phone] | [phone] | | | | | | | [...] + + documented as of this encounter Miscellaneous Notes Telephone Encounter - Lupe Leblanc RN - 03/23/2014 3:27 PM PDTGlkaryn called back, she only got a 30 day supply of her Sotalol after specifically asking us to send in for 90 days . Our records show that we sent in for 90 day supply on 03/10/14. She was advised to contac t the pharmacy to find out if she only got a 30 day supply due to insurance guidelines. She will call back with any further concerns ...........................................Lupe Leblanc RN on 03/23/2014 at 15:50 elephone Encounter - Lupe Leblanc RN - 03/23/2014 2:14 PM PDTGlkaryn called earlier today and left a mess age on my voicemail asking about Sotalol. No details left. I attempted to call Nayely back , left a message on her machine for her to return my call. ................................. ..........Lupe Leblanc RN on 03/23/2014 at 14:15 documented in this e ncounter Plan of Treatment Not on filedocumented as of this encounter Visit Diagnoses Not on filedocumented in this encounter"
--- OUTSIDE RECORDS SUMMARY | ~2020-02-08 | XMS | Encounter Summary ---
Demographics + + + | Address | [address] | | | [place] [address] | + + + | Home Phone | | + + + | Preferred Language | Unknown | + + + | Marital Status | | + + + | Holiness Affiliation | 1077 | + + + | Race | White | + + + | Ethnic Group | Not or | + + + Author + + + | Author | [facility] | | | and [place] | + + + | Organization | [facility] | | [...] [place] | | | | | [address] | | + + + + + | Han Holt | ECON | [address] | | | | | [place] | | | | | [address] | | + + + + + Care Team Providers + +------+ + | Care Tools Administrator Name | Role | Phone | + +------+ + | Alfred Jones MD | PCP | | + +------+ + Reason for Visit + +--------+ + | Reason | Onset | Comments | | | Date | | + +--------+ + | Lab Order | 08/22/ | due for fasting labs prior to appt | | | 2015 | | + +--------+ + Encounter Details +--------+ + + + + | Date | Type | Department | Care Team | Description | +--------+ + + + + | 08/22/ | Telephone | [facility] [place] | Yair, | Lab Order (due for | | 2015 | | CARDIOLOGY [address] | [address] | fasting labs prior | | | | [place], | [place], | to appt) | | | | [place] [address] | [place] [address] | | | | | [phone] | [phone] | | | | | | | [...] this encounter Miscellaneous Notes Telephone Encounter - Elio Ramirez Cert MA - 08/23/2015 11:52 AM PSTPatients appointmen t 08/28/2015. Patient is due for fasting labs (Lipid, CMP, CBC) prior to their appointment. Orders are in our system and faxed to [facility] per pt request.Electronically sign ed by Hector Ro MA at 08/23/2015 11:54 AM PSTdocumented in this encounter Plan of Treatment Not on filedocumented as of this encounter Visit Diagnoses Not on filedocumented in this encounter"
--- OUTSIDE RECORDS SUMMARY | ~2020-02-08 | XMS | Encounter Summary ---
Demographics + + + | Address | [address] | | | [place] [address] | + + + | Home Phone | | + + + | Preferred Language | Unknown | + + + | Marital Status | | + + + | Advent Affiliation | 1077 | + + + | Race | White | + + + | Ethnic Group | Not or | + + + Author + + + | Author | [facility] | | | and [place] | + + + | Organization | [facility] | | | and [...] [place] | | | | | [address] | | + + + + + | Han Holt | ECON | [address] | | | | | [place] | | | | | [address] | | + + + + + Care Team Providers + +------+ + | Care Line Department Supervisor Name | Role | Phone | + +------+ + | Alfred Jones MD | PCP | | + +------+ + Reason for Visit + +--------+ + | Reason | Onset | Comments | | | Date | | + +--------+ + | Lab Order | 08/29/ | due for fastings labs | | | 2016 | | + +--------+ + Encounter Details +--------+ + + + + | Date | Type | Department | Care Team | Description | +--------+ + + + + | 08/29/ | Telephone | [facility] | Yair, | Lab Order (due for | | 2016 | | CARDIOLOGY [address] | [address] | fastings labs ) | | | | [place], | [place], | | | | | [place] [address] | [place] [address] | | | | | [phone] | [phone] | | | | | | | [...] Encounter - Elio Ramirez Cert MA - 08/29/2016 12:55 PM PDTPatients appointmen t 09/02/16. Patient is due for fasting labs (Lipid, CMP, CBC) prior to their appointment. Or ders will be in our system and sent to [facility] in [place] where the patient would like t o have the labs drawn. Orders have been faxed. documented in th is encounter Plan of Treatment Not on filedocumented as of this encounter Visit Diagnoses Not on filedocumented in this encounter"
--- OUTSIDE RECORDS SUMMARY | ~2020-02-08 | XMS | Encounter Summary ---
Demographics + + + | Address | [address] | | | [place] [address] | + + + | Home Phone | | + + + | Preferred Language | Unknown | + + + | Marital Status | | + + + | Pentecostalism Affiliation | 1077 | + + + | Race | White | + + + | Ethnic Group | Not or | + + + Author + + + | Author | [facility] | | | and [place] | + + + | Organization | [facility] | | | and [...] [place] | | | | | [address] | | + + + + + | Han Holt | ECON | [address] | | | | | [place] | | | | | [address] | | + + + + + Care Team Providers + +------+ + | Care Meat And Poultry Inspector Name | Role | Phone | + +------+ + PCP | Unavailable | + +------+ + Encounter Details +--------+ + + + + | Date | Type | Department | Care Team | Description | +--------+ + + + + | 05/15/ | Hospital | [facility] | Evaristo Fragoso W, | | | 2006 | Encounter | MED [facility] | [address] | | | | | [address] | [place], [place] | | | | | [place], [place] | [address] | | | | | [address] | | | | | | [phone] | | | +--------+ + + + [...]
--- OUTSIDE RECORDS SUMMARY | ~2020-02-08 | XMS | Encounter Summary ---
Demographics + + + | Address | [address] | | | [place] [address] | + + + | Home Phone | | + + + | Preferred Language | Unknown | + + + | Marital Status | | + + + | Anglican Affiliation | 1077 | + + + | Race | White | + + + | Ethnic Group | Not or | + + + Author + + + | Author | [facility] | | | and [place] | + + + | Organization | [facility] | | [...] [place] | | | | | [address] | | + + + + + | Han Holt | ECON | [address] | | | | | [place] | | | | | [address] | | + + + + + Care Team Providers + +------+ + | Care Literacy Consultant Name | Role | Phone | + +------+ + | Alfred Jones MD | PCP | | + +------+ + Encounter Details +--------+ + + + + | Date | Type | Department | Care Team | Description | +--------+ + + + + | / | Orders Only | [facility] [place] | Dada Grant, | Atrial fibrillation | | 2016 | | CARDIOLOGY [address] | [address] [facility] | ([facility]); | | | | [place], | [place], | Hyperlipidemia; | | | | [place] [address] | [place] [id number] | Paroxysmal | | | | [phone] | [phone] | supraventricular | | | | | | tachycardia | +--------+ + + + + Social [...] filedocumented as of this encounter Visit Diagnoses + + | Diagnosis | + + | Atrial fibrillation (HCC) Atrial fibrillation | + + | Hyperlipidemia Other and unspecified hyperlipidemia | + + | Paroxysmal supraventricular tachycardia | + + documented in this encounter"
--- OUTSIDE RECORDS SUMMARY | ~2020-02-08 | XMS | Encounter Summary ---
Demographics + + + | Address | [address] | | | [place] [address] | + + + | Home Phone | | + + + | Preferred Language | Unknown | + + + | Marital Status | | + + + | Orthodox Affiliation | 1077 | + + + | Race | White | + + + | Ethnic Group | Not or | + + + Author + + + | Author | [facility] | | | and [place] | + + + | Organization | [facility] | | | and [place] | + + + | Address | Unknown | + + + | Phone | Unavailable | + + + Support + + + + + | Name | Relationship | Address | Phone | + + + + + | Yury Kellas | ECON | [address] | | | | | [place] | | | | | [address] | | + + + + + | Han Holt | ECON | [address] | | | | | [place] | | | | | [address] | | + + + + + Care Team Providers + +------+ + | Care Torpedo Worker Name | Role | Phone | + +------+ + | Alfred Jones MD | PCP | | + +------+ + Encounter Details +--------+ + + + + | Date | Type | Department | Care Team | Description | +--------+ + + + + | 08/27/ | Abstract | [facility] | Yair, | | | 2015 | | CARDIOLOGY [address] | Sveta, MED CARE MANAGER [address] | | | | | [place], | [place], | | | | | [place] [address] | [place] [address] | | | | | [phone] | [phone] | | | | | | | [...] +--------+ + + + | EXTERNAL LAB: BUN | Routin | 08/25/2015 | | Results for this | | | e | 6:01 AM | | procedure are in the | | | | PST | | results section. | + +--------+ + + + | EXTERNAL LAB: | Routin | 08/25/2015 | | Results for this | | GLUCOSE | e | 6:01 AM | | procedure are in the | | | | PST | | results section. | + +--------+ + + + | EXTERNAL LAB: ALT | Routin | 08/25/2015 | | Results for this | | | e | 6:01 AM | | procedure are in the | | | | PST | | results section. | + +--------+ + + + | EXTERNAL LAB: AST | Routin | 08/25/2015 | | Results for this | | | e | 6:01 AM | | procedure are in the | | | | PST | | results section. | + +--------+ + + + | EXTERNAL LAB: | Routin | 08/25/2015 | | Results for this | | ALKALINE PHOSPHATASE | e | 6:01 AM | | procedure are in the | | | | PST | | results section. | + +--------+ + + + | EXTERNAL LAB: | Routin | 08/25/2015 | | Results for this | | BILIRUBIN, TOTAL | e | 6:01 AM | | procedure are in the | | | | PST | | results section. | + +--------+ + + + | EXTERNAL LAB: | Routin | 08/25/2015 | | Results for this | | ALBUMIN | e | 6:01 AM | | procedure are in the | | | | PST | | results section. | + +--------+ + + + | EXTERNAL LAB: | Routin | 08/25/2015 | | Results for this | | PROTEIN, TOTAL | e | 6:01 AM | | procedure are in the | | | | PST | | results section. | + +--------+ + + + | EXTERNAL LAB: | Routin | 08/25/2015 | | Results for this | | CALCIUM | e | 6:01 AM | | procedure are in the | | | | PST | | results section. | + +--------+ + + + | EXTERNAL LAB: CARBON | Routin | 08/25/2015 | | Results for this | | DIOXIDE | e | 6:01 AM | | procedure are in the | | | | PST | | results section. | + +--------+ + + + | EXTERNAL LAB: | Routin | 08/25/2015 | | Results for this | | CHLORIDE | e | 6:01 AM | | procedure are in the | | | | PST | | results section. | + +--------+ + + + | EXTERNAL LAB: | Routin | 08/25/2015 | | Results for this | | POTASSIUM | e | 6:01 AM | | procedure are in the | | | | PST | | results section. | + +--------+ + + + | EXTERNAL LAB: SODIUM | Routin | 08/25/2015 | | Results for this | | | e | 6:01 AM | | procedure are in the | | | | PST | | results section. | + +--------+ + + + | EXTERNAL LAB: CBC | Routin | 08/25/2015 | | Results for this | | | e | 6:01 AM | | procedure are in the | | | | PST | | results section. | + +--------+ + + + | EXTERNAL LAB: | Routin | 08/25/2015 | | Results for this | | TRIGLYCERIDES | e | 6:01 AM | | procedure are in the | | | | PST | | results section. | + +--------+ + + + | EXTERNAL LAB: | Routin | 08/25/2015 | | Results for this | | CHOLESTEROL, HDL | e | 6:01 AM | | procedure are in the | | | | PST | | results section. | + +--------+ + + + | EXTERNAL LAB: | Routin | 08/25/2015 | | Results for this | | CHOLESTEROL, TOTAL | e | 6:01 AM | | procedure are in the | | | | PST | | results section. | + +--------+ + + + | EXTERNAL LAB: | Routin | 08/25/2015 | | Results for this | | CHOLESTEROL, LDL | e | 6:01 AM | | procedure are in the | | | | PST | | results section. | + +--------+ + + + | EXTERNAL LAB: EGFR | Routin | 08/25/2015 | | Results for this | | | e | 6:01 AM | | procedure are in the | | | | PST | | results section. | + +--------+ + + + | EXTERNAL LAB: | Routin | 08/25/2015 | | Results for this | | CREATININE | e | 6:01 AM | | procedure are in the | | | | PST | | results section. | + +--------+ + + + | LIPID PANEL | Routin | 08/24/2015 | | Results for this | | | e | 10:30 AM | | procedure are in the | | | | PST | | results section. | + +--------+ + + + | CBC WITH | Routin | 08/24/2015 | | Results for this | | DIFFERENTIAL | e | 10:30 AM | | procedure are in the | | | | PST | | results section. | + +--------+ + + + | COMPREHENSIVE | Routin | 08/24/2015 | | Results for this | | METABOLIC PANEL | e | 10:30 AM | | procedure are in the | | | | PST | | results section. | + +--------+ + + + documented in this encounter Results External Lab: MARCELLA (08/25/2015 6:01 AM PST) + +-------+ + + + | Component | Value | Ref Range | Performed | Pathologist | | | | | At | Signature | + +-------+ + + + | BUN, | 16 | 6 - 23 | EXTERNAL | | | External | | | LAB | | + +-------+ + + + + + | Resulting Agency Comment | + + | [facility] | + + + +---------+ + + | Performing | Address | City/State/Zipcode | Phone Number | | Organization | | | | + +---------+ + + | EXTERNAL LAB | | | | + +---------+ + + External Lab: Glucose (08/25/2015 6:01 AM PST) + +-------+ + + + | Component | Value | Ref Range | Performed | Pathologist | | | | | At | Signature | + +-------+ + + + | Glucose, | 90 | 70 - 100 | EXTERNAL | | | External | | | LAB | | + +-------+ + + + + + | Resulting Agency Comment | + + | [facility] | + + + +---------+ + + | Performing | Address | City/State/Zipcode | Phone Number | | Organization | | | | + +---------+ + + | EXTERNAL LAB | | | | + +---------+ + + External Lab: ALT (08/25/2015 6:01 AM PST) + +-------+ + + + | Component | Value | Ref Range | Performed | Pathologist | | | | | At | Signature | + +-------+ + + + | ALT, | 13 | 7 - 52 | EXTERNAL | | | External | | | LAB | | + +-------+ + + + + + | Resulting Agency Comment | + + | [facility] | + + + +---------+ + + | Performing | Address | City/State/Zipcode | Phone Number | | Organization | | | | + +---------+ + + | EXTERNAL LAB | | | | + +---------+ + + External Lab: TAWANA (08/25/2015 6:01 AM PST) + +-------+ + + + | Component | Value | Ref Range | Performed | Pathologist | | | | | At | Signature | + +-------+ + + + | AST, | 17 | 13 - 39 | EXTERNAL | | | External | | | LAB | | + +-------+ + + + + + | Resulting Agency Comment | + + | [facility] | + + + +---------+ + + | Performing | Address | City/State/Zipcode | Phone Number | | Organization | | | | + +---------+ + + | EXTERNAL LAB | | | | + +---------+ + + External Lab: Alkaline Phosphatase (08/25/2015 6:01 AM PST) + +-------+ + + + | Component | Value | Ref Range | Performed | Pathologist | | | | | At | Signature | + +-------+ + + + | ALP, | 70 | 30 - 128 | EXTERNAL | | | External | | | LAB | | + +-------+ + + + + + | Resulting Agency Comment | + + | [facility] | + + + +---------+ + + | Performing | Address | City/State/Zipcode | Phone Number | | Organization | | | | + +---------+ + + | EXTERNAL LAB | | | | + +---------+ + + External Lab: Bilirubin, Total (08/25/2015 6:01 AM PST) + +-------+ + + + | Component | Value | Ref Range | Performed | Pathologist | | | | | At | Signature | + +-------+ + + + | Bilirubin, | 0.8 | 0 - 1.2 | EXTERNAL | | | Total, | | | LAB | | | External | | | | | + +-------+ + + + + + | Resulting Agency Comment | + + | [facility] | + + + +---------+ + + | Performing | Address | City/State/Zipcode | Phone Number | | Organization | | | | + +---------+ + + | EXTERNAL LAB | | | | + +---------+ + + External Lab: Albumin (08/25/2015 6:01 AM PST) + +-------+ + + + | Component | Value | Ref Range | Performed | Pathologist | | | | | At | Signature | + +-------+ + + + | Albumin, | 4.0 | 3.5 - 5 | EXTERNAL | | | External | | | LAB | | + +-------+ + + + + + | Resulting Agency Comment | + + | [facility] | + + + +---------+ + + | Performing | Address | City/State/Zipcode | Phone Number | | Organization | | | | + +---------+ + + | EXTERNAL LAB | | | | + +---------+ + + External Lab: Protein, Total (08/25/2015 6:01 AM PST) + +-------+ + + + | Component | Value | Ref Range | Performed | Pathologist | | | | | At | Signature | + +-------+ + + + | Protein, | 7.0 | 6 - 8 | EXTERNAL | | | Total, | | | LAB | | | External | | | | | + +-------+ + + + + + | Resulting Agency Comment | + + | [facility] | + + + +---------+ + + | Performing | Address | City/State/Zipcode | Phone Number | | Organization | | | | + +---------+ + + | EXTERNAL LAB | | | | + +---------+ + + External Lab: Calcium (08/25/2015 6:01 AM PST) + +-------+ + + + | Component | Value | Ref Range | Performed | Pathologist | | | | | At | Signature | + +-------+ + + + | Calcium, | 9.3 | 8.4 - 10.2 | EXTERNAL | | | External | | | LAB | | + +-------+ + + + + + | Resulting Agency Comment | + + | [facility] | + + + +---------+ + + | Performing | Address | City/State/Zipcode | Phone Number | | Organization | | | | + +---------+ + + | EXTERNAL LAB | | | | + +---------+ + + External Lab: Carbon Dioxide (08/25/2015 6:01 AM PST) + +-------+ + + + | Component | Value | Ref Range | Performed | Pathologist | | | | | At | Signature | + +-------+ + + + | Carbon | 27 | 19 - 31 | EXTERNAL | | | Dioxide, | | | LAB | | | External | | | | | + +-------+ + + + + + | Resulting Agency Comment | + + | [facility] | + + + +---------+ + + | Performing | Address | City/State/Zipcode | Phone Number | | Organization | | | | + +---------+ + + | EXTERNAL LAB | | | | + +---------+ + + External Lab: Chloride (08/25/2015 6:01 AM PST) + +-------+ + + + | Component | Value | Ref Range | Performed | Pathologist | | | | | At | Signature | + +-------+ + + + | Chloride, | 101 | 95 - 112 | EXTERNAL | | | External | | | LAB | | + +-------+ + + + + + | Resulting Agency Comment | + + | [facility] | + + + +---------+ + + | Performing | Address | City/State/Zipcode | Phone Number | | Organization | | | | + +---------+ + + | EXTERNAL LAB | | | | + +---------+ + + External Lab: Potassium (08/25/2015 6:01 AM PST) + +-------+ + + + | Component | Value | Ref Range | Performed | Pathologist | | | | | At | Signature | + +-------+ + + + | Potassium, | 4.2 | 3.6 - 5.1 | EXTERNAL | | | External | | | LAB | | + +-------+ + + + + + | Resulting Agency Comment | + + | [facility] | + + + +---------+ + + | Performing | Address | City/State/Zipcode | Phone Number | | Organization | | | | + +---------+ + + | EXTERNAL LAB | | | | + +---------+ + + External Lab: Sodium (08/25/2015 6:01 AM PST) + +-------+ + + + | Component | Value | Ref Range | Performed | Pathologist | | | | | At | Signature | + +-------+ + + + | Sodium, | 138 | 132 - 143 | EXTERNAL | | | External | | | LAB | | + +-------+ + + + + + | Resulting Agency Comment | + + | [facility] | + + + +---------+ + + | Performing | Address | City/State/Zipcode | Phone Number | | Organization | | | | + +---------+ + + | EXTERNAL LAB | | | | + +---------+ + + External Lab: CBC (08/25/2015 6:01 AM PST) + +---------+ + + + | Component | Value | Ref Range | Performed | Pathologist | | | | | At | Signature | + +---------+ + + + | WBC, | 3.8 (A) | 4.5 - 11 | EXTERNAL | | | External | | | LAB | | + +---------+ + + + | HGB, | 12.7 | 12 - 16 | EXTERNAL | | | External | | | LAB | | + +---------+ + + + | HCT, | 39.4 | 35 - 45 | EXTERNAL | | | External | | | LAB | | + +---------+ + + + | PLT, | 217 | 140 - 440 | EXTERNAL | | | External | | | LAB | | + +---------+ + + + | Neutrophils | 51.3 | 39 - 80 | EXTERNAL | | | %, | | | LAB | | | External | | | | | + +---------+ + + + | Lymphocytes | 28.2 | 24 - 44 | EXTERNAL | | | %, | | | LAB | | | External | | | | | + +---------+ + + + | Monocytes | 11.6 | 0 - 12 | EXTERNAL | | | %, External | | | LAB | | + +---------+ + + + | Eosinophils | 8.1 (A) | 0 - 6 | EXTERNAL | | | %, | | | LAB | | | External | | | | | + +---------+ + + + | RBC, | 4.55 | 3.8 - 5.1 | EXTERNAL | | | External | | | LAB | | + +---------+ + + + | MCV, | 87 | 81 - 99 | EXTERNAL | | | External | | | LAB | | + +---------+ + + + | RDW, | 14.3 | 10.5 - 15 | EXTERNAL | | | External | | | LAB | | + +---------+ + + + + + | Resulting Agency Comment | + + | [facility] | + + + +---------+ + + | Performing | Address | City/State/Zipcode | Phone Number | | Organization | | | | + +---------+ + + | EXTERNAL LAB | | | | + +---------+ + + External Lab: Triglycerides (08/25/2015 6:01 AM PST) + +-------+ + + + | Component | Value | Ref Range | Performed | Pathologist | | | | | At | Signature | + +-------+ + + + | Triglycerid | 62 | 30 - 150 | EXTERNAL | | | es, | | | LAB | | | External | | | | | + +-------+ + + + + + | Specimen | + + | Blood specimen | | (specimen) | + + + + | Resulting Agency Comment | + + | [facility] | + + + +---------+ + + | Performing | Address | City/State/Zipcode | Phone Number | | Organization | | | | + +---------+ + + | EXTERNAL LAB | | | | + +---------+ + + External Lab: Cholesterol, HDL (08/25/2015 6:01 AM PST) + +-------+ + + + | Component | Value | Ref Range | Performed | Pathologist | | | | | At | Signature | + +-------+ + + + | HDL | 89.4 | 40 mg/dl | EXTERNAL | | | Cholesterol | | | LAB | | | , External | | | | | + +-------+ + + + + + | Specimen | + + | Blood specimen | | (specimen) | + + + + | Resulting Agency Comment | + + | [facility] | + + + +---------+ + + | Performing | Address | City/State/Zipcode | Phone Number | | Organization | | | | + +---------+ + + | EXTERNAL LAB | | | | + +---------+ + + External Lab: Cholesterol, Total (08/25/2015 6:01 AM PST) + +---------+ + + + | Component | Value | Ref Range | Performed | Pathologist | | | | | At | Signature | + +---------+ + + + | Cholesterol | 238 (A) | 200 mg/dl | EXTERNAL | | | , Total, | | | LAB | | | External | | | | | + +---------+ + + + + + | Specimen | + + | Blood specimen | | (specimen) | + + + + | Resulting Agency Comment | + + | [facility] | + + + +---------+ + + | Performing | Address | City/State/Zipcode | Phone Number | | Organization | | | | + +---------+ + + | EXTERNAL LAB | | | | + +---------+ + + External Lab: Cholesterol, LDL (08/25/2015 6:01 AM PST) + +---------+ + + + | Component | Value | Ref Range | Performed | Pathologist | | | | | At | Signature | + +---------+ + + + | LDL | 136 (A) | 100 | EXTERNAL | | | Cholesterol | | | LAB | | | , Direct, | | | | | | External | | | | | + +---------+ + + + + + | Specimen | + + | Blood specimen | | (specimen) | + + + + | Resulting Agency Comment | + + | [facility] | + + + +---------+ + + | Performing | Address | City/State/Zipcode | Phone Number | | Organization | | | | + +---------+ + + | EXTERNAL LAB | | | | + +---------+ + + External Lab: eGFR (08/25/2015 6:01 AM PST) + +-------+ + + + | Component | Value | Ref Range | Performed | Pathologist | | | | | At | Signature | + +-------+ + + + | eGFR, | 103 | 60 - 999 | EXTERNAL | | | External | | | LAB | | + +-------+ + + + + + | Specimen | + + | Blood specimen | | (specimen) | + + + + | Resulting Agency Comment | + + | [facility] | + + + +---------+ + + | Performing | Address | City/State/Zipcode | Phone Number | | Organization | | | | + +---------+ + + | EXTERNAL LAB | | | | + +---------+ + + External Lab: Creatinine (08/25/2015 6:01 AM PST) + + + + + + | Component | Value | Ref Range | Performed | Pathologist | | | | | At | Signature | + + + + + + | Creatinine, | 0.56 (A) | 0.7 - 1.11 | EXTERNAL | | | External | | | LAB | | + + + + + + + + | Specimen | + + | Blood specimen | | (specimen) | + + + + | Resulting Agency Comment | + + | [facility] | + + + +---------+ + + | Performing | Address | City/State/Zipcode | Phone Number | | Organization | | | | + +---------+ + + | EXTERNAL LAB | | | | + +---------+ + + CBC with Differential (08/24/2015 10:30 AM PST) + +-------+ + + + | Component | Value | Ref Range | Performed | Pathologist | | | | | At | Signature | + +-------+ + + + | MCH | 28.0 | 26.0 - 33.0 pg | | | + +-------+ + + + | MCHC | 32.0 | 30.0 - 36.0 % | | | + +-------+ + + + | % Basophils | 0.8 | 1.0 % | | | + +-------+ + + + + + | Specimen | + + | Blood specimen | | (specimen) | + + Comprehensive Metabolic Panel (08/24/2015 10:30 AM PST) + +-------+ + + + | Component | Value | Ref Range | Performed | Pathologist | | | | | At | Signature | + +-------+ + + + | Anion Gap | 14 | 7 - 21 mmol/L | [facility] | | | | [facility] | | | | [facility] | [facility] - | | | | | | [facility] | | + +-------+ + + + | Bun/Creatin | 28.6 | 6 - 28.6 | [facility] | | | ine | | | [facility] | | | | | | [facility] | | | | | | [facility] - | | | | | | LAB[facility]ATORY | | + +-------+ + + + | Albumin/Tiera | 1.3 | 1.1 - 2.4 | [facility] | | | bulin Ratio | | | [facility] | | | | | | [facility] | | | | | | [facility] - | | | | | | LABORATORY | | + +-------+ + + + | Globulin | 3.0 | 1.8 - 3.5 | [facility] | | | | | | [facility] | | | | | | [facility] | | | | | | [facility] - | | | | | | LAB[facility]ATORY | | + +-------+ + + + + + | Specimen | + + | Blood specimen | | (specimen) | + + + + + + + | Performing | Address | City/State/Zipcode | Phone Number | | Organization | | | | + + + + + | [facility] | [address] | [place] | [phone] | | [facility] | | [address], [facility] | | | - LABORATORY | | | | + + + + + Lipid Panel (08/24/2015 10:30 AM PST) + +---------+ + + + | Component | Value | Ref Range | Performed | Pathologist | | | | | At | Signature | + +---------+ + + + | VLDL | 12 | 4 - 40 | | | | Cholesterol | | | | | | Miguel | | | | | + +---------+ + + + | Chol/HDL | 2.7 | 4.4 | | | | Ratio | | | | | + +---------+ + + + | Non-HDL | 149 (A) | 130 | | | | Cholesterol | | | | | + +---------+ + + + + + | Specimen | + + | Blood specimen | | (specimen) | + + documented in this encounter Visit Diagnoses Not on filedocumented in this encounter"
--- OUTSIDE RECORDS SUMMARY | ~2020-02-08 | XMS | Encounter Summary ---
Demographics + + + | Address | [address] | | | [place] [address] | + + + | Home Phone | | + + + | Preferred Language | Unknown | + + + | Marital Status | | + + + | Restorationism Affiliation | 1077 | + + + | Race | White | + + + | Ethnic Group | Not or | + + + Author + + + | Author | [facility] | | | and [place] | + + + | Organization | [facility] | | | [...] [place] | | | | | [address] | | + + + + + | Han Holt | ECON | [address] | | | | | [place] | | | | | [address] | | + + + + + Care Team Providers + +------+ + | Care Head Of Acquisitions Name | Role | Phone | + [...] Description | +--------+--------+ + + + | 01/19/ | Refill | [facility] | Dada Grant, | Medication Refill | | 2012 | | CARDIOLOGY [address] | MD [address] | | | | | [place], | [place], | | | | | [place] [address] | [place] [address] | | | | | [phone] | [phone] | | | | | | | | +--------+--------+ + + + Social History + +-------+ [...]
--- OUTSIDE RECORDS SUMMARY | ~2020-02-08 | XMS | Encounter Summary ---
Demographics + + + | Address | [address] | | | [place] [address] | + + + | Home Phone | | + + + | Preferred Language | Unknown | + + + | Marital Status | | + + + | Tenriism Affiliation | 1077 | + + + | Race | White | + + + | Ethnic Group | Not or | + + + Author + + + | Author | [facility] | | | and [place] | + + + | Organization | [facility] | | | [...] [place] | | | | | [address] | | + + + + + | Han Holt | ECON | [address] | | | | | [place] | | | | | [address] | | + + + + + Care Team Providers + +------+ + | Care Chemistry Laboratory Technician Name | Role | Phone | + +------+ + | Alfred Jones MD | PCP | | + +------+ + Reason for Visit + + + | Reason | Comments | + + + | Annual Assessment | | + + + | Tachycardia | | + + + Encounter Details +--------+---------+ + + + | Date | Type | Department | Care Team | Description | +--------+---------+ + + + | 09/02/ | Office | [facility] | [place], | Paroxysmal atrial | | 2017 | Visit | CARDIOLOGY [address] | [address] | fibrillation (HCC) | | | | [place], | [place], | (Primary Dx); | | | | [place] [address] | [place] [address] | Paroxysmal | | | | [phone] | [phone] | supraventricular | | | | | | tachycardia (HCC); | | | | | | Essential | | | | | | hypertension with | | | | | | goal blood pressure | | | | | | less than 130/80 | +--------+---------+ + + + Social History [...] + + + | Blood Pressure | 136/72 | 09/02/2016 12:52 PM | | | | | PDT | | + + + + + | Pulse | 60 | 09/02/2016 12:52 PM | | | | | PDT | | + + + + + | Temperature | - | - | | + + + + + | Respiratory Rate | 14 | 09/02/2016 12:52 PM | | | | | PDT | | + + + + + | Oxygen Saturation | - | - | | + + + + + | Inhaled Oxygen | - | - | | | Concentration | | | | + + + + + | Weight | 54 kg (119 lb) | 09/02/2016 12:52 PM | | | | | PDT | | + + + + + | Height | 160 cm (5' 3") | 09/02/2016 12:52 PM | | | | | PDT | | + + + + + | Body Mass Index | 21.08 | 09/02/2016 12:52 PM | | | | | PDT | | + + + + + documented in this encounter Progress Notes Sveta Mazariegos ARNP - 09/02/2016 12:46 PM PDTFormatting of this note might be differen t from the original. PATIENT NAME: Nayely Holt : 1930: AGE: 86 y.o. PRIMARY CARE: Alfred Jones MD OUTPATIENT FOLLOW UP VISIT Date of Service: 09/02/2016 HISTORY OF PRESENT ILLNESS: Nayely Holt is a 86 y.o. female with a history of paroxysmal atrial fibrillation, es sential hypertension, anxiety disorder and mixed hyperlipidemia. She is being seen today fo r follow up paroxysmal atrial fibrillation and hypertension. She was last seen 08/28/2015 at which time she was to continue same therapeutic medical reg imen and follow up 1 year. Since that time, she has been doing "well". She has had a good e nergy level. She tries to stay active. She enjoys being with great-grand kids in her spare time. She has not had any chest pain or discomfort at rest or with exertion. She has not noticed shortness of breath. She has not had any lightheadedness or dizziness. She has no t noticed palpitations. If she misses 1 pill then she feels palpitations, rarely happens. Sh stephania has not had leg swelling. She is able to sleep laying down at night without any symptoms of shortness of breath. She has no cardiac complaints. MEDICAL, SURGICAL, AND PERSONAL HISTORY Past Medical, [...] 1 tablet by mouth 2 times daily. (Patient taking d ifferently: Take 80 mg by mouth Daily.) 180 tablet 3 No current facility-administered medications for this visit. ALLERGIES No Known Allergies ROS Review of Systems Constitutional: Negative for fever, chills, weight loss, malaise/fatigue and diaphoresis. HENT: Negative for congestion, hearing loss, nosebleeds and tinnitus. Dental Problems = No Eyes: Negative for blurred vision and double vision. Respiratory: Negative for shortness of breath. Cardiovascular: Positive for palpitations. Negative for chest pain and leg swelling. Gastrointestinal: Negative for nausea, vomiting, diarrhea, constipation and blood in stool. Genitourinary: Negative for dysuria, urgency, frequency and hematuria. Musculoskeletal: Positive for joint pain. Negative for myalgias, back pain, falls and neck pain. Gait Problems = No Skin: Negative for itching and rash. Neurological: Positive for tingling. Negative for dizziness, tremors, speech change, seizur es, loss of consciousness and weakness. Lightheaded = No Endo/Heme/Allergies: Does not bruise/bleed easily. Psychiatric/Behavioral: Negative for memory loss. The patient is not nervous/anxious and do es not have insomnia. OBJECTIVE: PHYSICAL EXAM BP 136/72 mmHg | Resp 14 | Ht 1.6 m (5' 3") | Wt 53.978 kg (119 lb) | BMI 21.09 kg/m2 Physical Exam Constitutional: She appears well-developed and [...] normal. Skin: Skin is warm and dry. Psychiatric: She has a normal mood and affect. Her mood appears not anxious. She does not e xhibit a depressed mood. ECG: I personally independently reviewed ECG tracing during this visit (interpreted and naty led by another provider): Results for orders placed or performed in visit on 09/02/16 ECG 12 lead Result Value Ref Range INTERPRETATION TEXT Sinus bradycardia with 1 st degree AV block heart rate of 53 bpm LAB RESULTS reviewed during visit today primarily from [facility]: LIPID Lab Results Component Value Date CHOLHDL 2.7 08/24/2015 LDLEX 136* 08/25/2015 HDLEX 89.4 08/25/2015 TRIGEX 62 08/25/2015 CHOLEX 238* 08/25/2015 CHEMISTRY Lab Results Component Value Date GLU 99 07/24/2013 GLUEX 90 08/25/2015 NA 138 07/24/2013 NAEX 138 08/25/2015 K 4.1 07/24/2013 KEX 4.2 08/25/2015 CL 105 07/24/2013 CLEX 101 08/25/2015 CO2 26 07/24/2013 CO2EX 27 08/25/2015 CALCIUM 8.9 07/24/2013 ALKPHOS 71 12/18/2011 ASTEX 17 08/25/2015 ALTEX 13 08/25/2015 BILITOT 0.5 12/18/2011 CREA 0.65 07/24/2013 BUN 26* 07/24/2013 EGFR >60 07/24/2013 EGFREX 103 08/25/2015 CREEX 0.56* 08/25/2015 HEMATOLOGY Lab Results Component Value Date WBC 4.9* 04/04/2011 WBCEX 3.8* 08/25/2015 HGB 12.9 04/04/2011 HGBEX 12.7 08/25/2015 HCT 38.0* 04/04/2011 HCTEX 39.4 08/25/2015 PLT 211 04/04/2011 PLTEX 217 08/25/2015 I reviewed records from [facility] for office visit on 08/28/2015 which is summarized in the HPI. Above data [...] Today she is in a normal sinus rhythm and has not had any furth er symptoms or episodes. Cassiains very functional and still works 5 days a week in her [employer]. She is in class I of the [place] [employer] functional class. There is no le g swelling on the physical exam and no other signs or symptoms of overt congestive heart shae lure. Long-term anticoagulations to minimize the risk of stroke was brought up again. Alayna cat is taking aspirin and she is not interested in starting any anticoagulation medication at this point. She states that she understands her pros and cons but she chooses not to do th at at this point. Risk of stroke is reviewed today; her risk factors are Age 65 to 74 (1) and Female Gender (1), giving her a [id number] of 2, estimating a 2=2.2% risk of stroke pe r year in atrial fibrillation. Risk of bleed on anticoagulant is also reviewed today; her risk factors are HTN (1), >64 YO (1) and NSAIDS/ASA (1), giving her a HAS-BLED score of 3, patient is at 2-3= Intermediate Risk (4.1-5.8%) for risk of bleed. ESC guidelines long mmend anticoagulation for scores of 1 or greater. ACC guidelines recommend anticoagulation for scores of 2 or greater. She was on warfarin in the past and stopped taking it in 07/2011 , and is not willing to consider anticoagulation at this time. She does not want to ta ke Aspirin 2. Essential hypertension with goal blood pressure less than 130/80: A. well-controlled blood pressure 3. History of anxiety disorder. 4. History of Hyperlipidemia, mixed: A. Borderline elevated cholesterol panel. Patient does not want to start any medication and she has reviewed with me low fat diet. PLAN: 1. Patient has been advised to continue Sotalol but make sure the she takes it twice a day 2. Continue with regular walking 3. She will follow up in 1 year, or sooner with concerns. Portions of this chart may have been created with [employer] voice recognition software. Occasi onal wrong-word or [...] | ECG 12 LEAD | Routin | 09/02/2016 | Paroxysmal atrial | Results for this | | | e | 12:54 PM | fibrillation (HCC) | procedure are in the | | | | PDT | Paroxysmal | results section. | | | | | supraventricular | | | | | | tachycardia (HCC) | | | | | | Essential | | | | | | hypertension with | | | | | | goal blood pressure | | | | | | less than 130/80 | | + +--------+ + + + | LABS - EXTERNAL SCAN | | 08/30/2016 | | Results for this | | | | 12:00 AM | | procedure are in the | | | | PDT | | results section. | + +--------+ + + + documented in this encounter Results ECG 12 lead (09/02/2016 12:54 PM PDT) + + + + + + | Component | Value | Ref Range | Performed | Pathologist | | | | | At | Signature | + + + + + + | VENTRICULAR | 53 | BPM | [facility] | | | RATE EKG | | | | | + + + + + + | ATRIAL RATE | 53 | BPM | [facility] | | + + + + + + | P-R | 240 | ms | [facility] | | | INTERVAL | | | | | + + + + + + | QRS | 74 | ms | [facility] | | | DURATION | | | | | + + + + + + | Q-T | 432 | ms | [facility] | | | INTERVAL | | | | | + + + + + + | Q-T | 405 | ms | [facility] | | | INTERVAL | | | | | | (CORRECTED) | | | | | + + + + + + | P WAVE AXIS | 57 | degrees | [facility] | | + + + + + + | QRS AXIS | 42 | degrees | [facility] | | + + + + + + | T AXIS | 59 | degrees | [facility] | | + + + + + + | INTERPRETAT | Sinus bradycardia with | | [facility] | | | ION TEXT | 1st degree AV blockRSR' | | | | | | or QR pattern in V1 | | | | | | suggests right | | | | | | ventricular conduction | | | | | | delayBorderline ECGWhen | | | | | | compared with ECG of | | | | | | 28-AUG-2015 16:11,[place] | | | | | | interval has | | | | | | increasedConfirmed by | | | | | | GIACOMO PIEDRA MD | | | | | | ([id number]) on 09/03/2016 | | | | | | 6:10:34 AM | | | | + + + [...] | | | + +---------+ + + LABS - EXTERNAL SCAN (08/30/2016 12:00 AM PDT) + + + | Narrative | Performed At | + + + | Ordered by an | | | unspecified provider. | | + + + documented in this encounter Visit Diagnoses + + | Diagnosis | + + | Paroxysmal atrial fibrillation (HCC) - Primary Atrial fibrillation | + + | Paroxysmal supraventricular tachycardia (HCC) Paroxysmal supraventricular tachycardia | + + | Essential hypertension with goal blood pressure less than 130/80 | + + documented in this encounter
--- OUTSIDE RECORDS SUMMARY | ~2020-02-08 | XMS | Encounter Summary ---
Demographics + + + | Address | [address] | | | [place] [address] | + + + | Home Phone | | + + + | Preferred Language | Unknown | + + + | Marital Status | | + + + | [employer] Affiliation | 1077 | + + + | Race | White | + + + | Ethnic Group | Not or | + + + Author + + + | Author | [facility] | | | and [place] | + + + | Organization | [facility] | | | [...] [place] | | | | | [address] | | + + + + + | Han Holt | ECON | [address] | | | | | [place] | | | | | [address] | | + + + + + Care Team Providers + +------+ + | Care Grain Distributor Name | Role | Phone | + +------+ + | Alfred Jones MD | PCP | | + +------+ + Encounter Details +--------+ + + + + | Date | Type | Department | Care Team | Description | +--------+ + + + + | 08/09/ | Abstract | [facility] | [place]ada [place], | | | 2015 | | CARDIOLOGY [address] | [address] | | | | | [place], | [place], | | | | | [place] [address] | [place] [address] | | | | | [phone] | [phone] | | | | | | | [...] | | | ine | | | [facility] | | | | | | MEDICAL [...] | + + + + + | [address] | [address] | [place], [place] | | | [facility] | | [id number] | | | - LABORATORY | | [...] | eGFR, | 95 | 60 - [phone] | EXTERNAL | | | External | [...]
--- OUTSIDE RECORDS SUMMARY | ~2020-02-08 | XMS | Encounter Summary ---
Demographics + + + | Address | [address] | | | [place] [address] | + + + | Home Phone | | + + + | Preferred Language | Unknown | + + + | Marital Status | | + + + | Druze Affiliation | 1077 | + + + | Race | White | + + + | Ethnic Group | Not or | + + + Author + + + | Author | [facility] | | | and [place] | + + + | Organization | [facility] | | [...] [place] | | | | | [address] | | + + + + + | Han Tom | ECON | [address] | | | | | [place] | | | | | [address] | | + + + + + Care Team Providers + +------+ + | Care Nuclear Scientist Name | Role | Phone | + +------+ + | Alfred Jones MD | PCP | | + +------+ + Encounter Details +--------+ + + + + | Date | Type | Department | Care Team | Description | +--------+ + + + + | 07/23/ | Hospital | [facility] | John Chamberlain MD | | | 2013 - | Encounter | MED CTR ICU [address] | [address] | | | | | [place], | [place] | | | 07/24/ | | [place] [address] | [address] | | | 2013 | | [phone] | | | +--------+ + + + [...] + + documented as of this encounter Discharge Summaries John Chamberlain MD - 07/24/2013 12:57 [place] [address] Patient Name: NAYELY TOM Provider: John Chamberlain MD Unit #: [id number] Location: [address] [place] [address] #: [id number] : 1930 ADMISSION DATE: 07/23/2013 DISCHARGE DATE: 07/24/2013 DISCHARGE SUMMARY DISCHARGE DIAGNOSES 1. ATRIAL FIBRILLATION. 2. HISTORY OF HYPERTENSION. HISTORY OF PRESENT ILLNESS AND PHYSICAL EXAMINATION: See admission history and physical ex am dated 12/2013 from Dedrick Smalls MD. COURSE THIS ADMISSION: Ms. Tom was admitted for monitoring and reinitiation of her sota lol with a history of rapid atrial fibrillation versus SVT on presentation to [facility]. With her initial dose of sotalol, she had conversion to sinus rhythm whi ch she has sustained through her course here over the next 12 hours. She is anxious to be d ischarged and has a previous history of being on sotalol. EKGs were obtained, which showed RSR complex in the anterior precordial leads. This is completely unchanged from her old irwin ctrocardiogram and a chronic stable finding. Otherwise, vital signs have been stable. Blood work at the time of admission has been reviewed. DISCHARGE DISPOSITION At the time of discharge, the patient will be discharged to home on a medical regimen incl uding. 1. Sotalol 80 mg p.o. b.i.d. 2. Aspirin 325 mg daily. 3. Alprazolam 0.25 mg t.i.d. p.r.n. anxiety. The patient is to contact Dr. Grant's office on Friday to arrange followup in that he has followed her from a cardiovascular standpoint. DICTATED BY: John Chamberlain MD Internal Medicine JOB #: [id number] EXT JOB #:[id number] cc: Dedrick Smalls MD <<Signature on File>> John Chamberlain MD 0028 <Electronically signed by John Chamberlain MD> documented in this e ncounter Medications at Time of Discharge + + + +---------+ + + | Medication | Sig | Dispensed | Refills | Start | End Date | | | | | | Date | | + + + +---------+ + + | ALPRAZolam (XANAX) | 1 tablet by mouth | | 0 | 02/03/20 | | | 0.25 mg tablet | twice daily as | | | 12 | | | | needed | | | | | + + + +---------+ + + | sotalol (BETAPACE) | Take 1 tablet by | 60 | 6 | 07/21/19 | | | 80 mg tablet | mouth 2 times daily. | tablet | | 14 | 4 | + + + +---------+ + + documented as of this encounter H&P Notes Provider Not, In System - 07/23/2013 11:00 PM [facility] [place] [address] Patient Name: NAYELY TOM Provider: Dedrick Smalls MD Unit #: [id number] Location: [address] [place] [address] #: [id number] : 1930 DATE: 07/23/2013 CHIEF COMPLAINT: Palpitations, lightheadedness. HISTORY OF PRESENT ILLNESS: Mrs. Tom is an 83-year-old woman with a history of paroxysma l atrial fibrillation, paroxysmal supraventricular tachycardia, chronically on sotalol 80 m g twice daily, who presents with palpitations. She is supposed to be taking aspirin to decr ease her risk of stroke, but she has not taken that for years. She is supposed to be taking sotalol 80 mg twice daily, but started taking this only once daily 2 weeks ago, because e was hoping that she did not need it anymore. She says, at baseline, that she has periods of palpitations and lightheadedness about once monthly, at which time she takes alprazolam and lies down and then her symptoms improve over 2 hours. This happened one week ago after she stopped sotalol and then happened again today. She denies any chest pain but did have s ignificant palpitations with some headache, lightheadedness, and slight dizziness. She pres ented to the emergency room in [place], and was found to have intermittent episodes of pa roxysmal atrial ectopy and tachycardia. She had a workup which included a negative troponin, a normal TSH, normal electrolytes, but was transferred here for further evaluation and man agement. She was transferred here, and in the emergency department she received 80 mg of so talol. REVIEW OF SYSTEMS GENERAL: She denies fever or chills. She has been eating well and her weight has been stabl e. EYES: No vision changes. HEENT: She did have a headache, lightheadedness and dizziness this morning, but that has co mpletely resolved. CARDIAC: She has had some palpitations this morning, although denies any subjective palpita tions at this time. Denies chest pain. PULMONARY: No shortness of breath, cough or sputum production. GASTROINTESTINAL: No nausea, vomiting, constipation or diarrhea. : No hematuria or dysuria. MUSCULOSKELETAL: No new muscle or joint pain. SKIN: No new rashes or lesions. NEUROLOGIC: She tripped twice in the last month and fell, but denies any stroke or neurolog ic deficits. PSYCHIATRIC: Mood has been stable. ENDOCRINE: No known diabetes or thyroid problems. HEMATOLOGY: No bruising or bleeding. PAST MEDICAL HISTORY 1. Paroxysmal atrial fibrillation. 2. History of hypertension. PAST SURGICAL HISTORY 1. Hammertoe surgery. 2. Bunion removal. 3. Right shoulder surgery. 4. Total abdominal hysterectomy. 5. Cholecystectomy in 2008. 6. Appendectomy. According to past notes, she remembers a cholecystectomy but did not tell me about the hysterectomy or appendectomy. CURRENT MEDICATIONS 1. Sotalol 80 mg p.o. daily. She is supposed to be taking this twice daily. 2. Alprazolam 0.25 mg p.o. as needed for palpitations. She says she usually takes this once monthly. She takes no other medicines. ALLERGIES: NO KNOWN DRUG ALLERGIES. 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 She and h er work on this together. She helps take care of her . She denies any smokin g or alcohol use. FAMILY HISTORY: Her mother when she was over the age of 100. Her father of a stro ke at age 86. She has two sisters, one of whom has Alzheimer disease. PHYSICAL EXAMINATION VITAL SIGNS: Blood pressure 130/77, heart rate 92, respiratory rate 16, temperature 97.9, o xygen 96% on room air. Weight is 56 kilograms. GENERAL: She is a very pleasant, alert and oriented woman in no acute distress. She appears quite healthy. HEENT: Moist mucous membranes. No scleral icterus. CARDIAC: Irregularly irregular with episodes of tachycardia to 1-teens. PULMONARY: Clear to auscultation bilaterally. No coughs, wheezes or rales. GASTROINTESTINAL: Soft, nontender, nondistended. Bowel sounds present. EXTREMITIES: Warm and well-perfused. She has 2+ dorsal pedal pulses and no edema. SKIN: No rashes or lesions noted. NEUROLOGIC: Grossly intact. LABORATORY DATA: CBC shows a white count of 4.4, hematocrit of 41.6, platelets 224. INR is 1.1. Chem-7 shows sodium 138, potassium 4, chloride 106, bicarbonate 26, BUN 22, creatinine 0.6, glucose 107, magnesium is 1.9, TSH is 1.05. Troponin is less than 0.01. IMAGING: An EKG shows RSR prime morphology in V1 and V2. There is a normal sinus rhythm wit h sinus arrhythmia. An EKG here showed initially a tachycardia in the 120s, which could be consistent with an atrial flutter. She had episodes of normal sinus rhythm, apparent episo himanshu of irregular tachycardia and episodes of regular tachycardia. She had obvious atrial ec topy. ASSESSMENT AND PLAN 1. TACHYARRHYTHMIA WITH A HISTORY OF ATRIAL FIBRILLATION AND SUPRAVENTRICULAR TACHYCARDIA. Mrs. Tom has had similar symptoms and EKGs since at least 2010 and has been on sotalol c hronically with symptoms well controlled. She does see Dr. Grant and her rate had been controlled while taking sotalol. She had an echocardiogram in 2010, which showed normal lef t ventricular size and ejection fraction of 75%, mild pulmonary hypertension. She had a nor mal regadenoson stress test in 2011 as well. She is supposed to be taking aspirin for strok e prophylaxis, although has not been taking it. She says she is willing to start aspirin, b ut is not willing to consider warfarin at this time. She is willing to discuss rivaroxaban with Dr. Grant. Will admit under observation to the step-down unit, follow closely on t elemetry, and discuss with Dr. Grant if her symptoms worsen or do not improve with sota lol. 2. HISTORY OF HYPERTENSION. Blood pressure is well controlled currently and will continue s otalol. 3. HISTORY OF ANXIETY. She rarely takes alprazolam and it is not clear that anxiety is real ly a driving factor here. 4. DEEP VENOUS THROMBOSIS PROPHYLAXIS. Is SCDs and aspirin. She is not willing to consider warfarin. 5. 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 Are her sons, Francis, Yury and Gigi Tom. CODE STATUS IS FULL CODE. TOTAL TIME SPENT: Reviewed and summarized past medical records, spent 1 hour in admission keenan santos. DICTATED BY: Dedrick Smalls MD Hospitalist JOB #: [id number] EXT JOB #:[id number] cc: Dada Grant MD, FACC, FACP, GRAHAM, MANDIE <<Signature on File>> Radames Emery D007/25/13 0248 < documented in this encounter Plan of Treatment Not on filedocumented as of this encounter Procedures + +--------+ + + + | Procedure Name | Priori | Date/Time | Associated Diagnosis | Comments | | | ty | | | | + +--------+ + + + | TROPONIN I | Routin | 07/24/2013 | | Results for this | | | e | 4:59 AM | | procedure are in the | | | | PST | | results section. | + +--------+ + + + | BASIC METABOLIC | Routin | 07/24/2013 | | Results for this | | PANEL | e | 4:59 AM | | procedure are in the | | | | PST | | results section. | + +--------+ + + + | CULTURE, MRSA | Routin | 07/24/2013 | | | | | e | 3:48 AM | | | | | | PST | | | + +--------+ + + + | URINALYSIS, REFLEX | Routin | 07/24/2013 | | Results for this | | MICROSCOPIC AND/OR | e | 12:03 AM | | procedure are in the | | CULTURE | | PST | | results section. | + +--------+ + + + | TROPONIN I | Routin | 07/23/2013 | | Results for this | | | e | 10:34 PM | | procedure are in the | | | | PST | | results section. | + +--------+ + + + | MAGNESIUM | Routin | 07/23/2013 | | Results for this | | | e | 10:34 PM | | procedure are in the | | | | PST | | results section. | + +--------+ + + + | BASIC METABOLIC | Routin | 07/23/2013 | | Results for this | | PANEL | e | 10:34 PM | | procedure are in the | | | | PST | | results section. | + +--------+ + + + documented in this encounter Results Basic Metabolic Panel (07/24/2013 4:59 AM PST) + + + + + + | Component | Value | Ref Range | Performed | Pathologist | | | | | At | Signature | + + + + + + | Glucose | 99 | 70 - 109 mg/dL | [facility] | | | | | | [facility] | | | | | | [facility]ICAL | | | | | | CENTER - | | | | | | LABORATORY | | + + + + + + | Calcium | 8.9 | 8.3 - 10.5 | [facility] | | | | | mg/dL | [facility] | | | | | | MEDICAL | | | | | | CENTER - | | | | | | LABORATORY | | + + + + + + | BUN | 26 (H) | 7 - 18 mg/dL | [facility] | | | | | | [facility] | | | | | | MEDICAL | | | | | | CENTER - | | | | | | LABORATORY | | + + + + + + | Creatinine | 0.65 | 0.60 - 1.30 | [facility] | | | | | mg/dL | [facility] | | | | | | MEDICAL | | | | | | CENTER - | | | | | | LABORATORY | | + + + + + + | Estimated | >60Comment: For | >60 mL/min/A | [facility] | | | GFR | -Americans, | | [facility] | | | | please multiply the | | MEDICAL | | | | result by 1.210 | | CENTER - | | | | This is an estimated | | LABORATORY | | | | GFR and is based on a | | | | | | standard adult | | | | | | body mass (A=1.73m2) and | | | | | | serum creatinine | | | | + + + + + + | BUN/Creatin | 40.0 (H) | 12 - 20 | [facility] | | | ine Ratio | | | [facility] | | | | | | MEDICAL | | | | | | CENTER - | | | | | | LABORATORY | | + + + + + + | Na | 138 | 136 - 149 mEq/L | [facility] | | | | | | [facility] | | | | | | MEDICAL | | | | | | CENTER - | | | | | | LABORATORY | | + + + + + + | K | 4.1 | 3.5 - 5.1 mEq/l | [facility] | | | | | | [facility] | | | | | | MEDICAL | | | | | | CENTER - | | | | | | LABORATORY | | + + + + + + | Cl | 105 | 98 - 109 mEq/l | [facility] | | | | | | [facility] | | | | | | MEDICAL | | | | | | CENTER - | | | | | | LABORATORY | | + + + + + + | CO2 | 26 | 24 - 31 mEq/L | [facility] | | | | | | [facility] | | | | | | MEDICAL | | | | | | CENTER - | | | | | | LABORATORY | | + + + + + + | Anion Gap | 11.1 | 6.0 - 17.0 | [facility] | | | | | | [facility] | | | | | | MEDICAL | | | | | | CENTER - | | | | | | LABORATORY | | + + + + + + + + | Specimen | + + | | + + + + + + + | Performing | Address | City/State/Zipcode | Phone Number | | Organization | | | | + + + + + | [facility] | [address] | [place] | [phone] | | [facility] | | [address] | | | - LABORATORY | | | | + + + + + | [facility] | [address] | [place], [place] | | | [facility] | | [address], [facility] | | | - LABORATORY | | | | + + + + + Troponin I (07/24/2013 4:59 AM PST) + + + + + + | Component | Value | Ref Range | Performed | Pathologist | | | | | At | Signature | + + + + + + | Troponin I | 0.01Comment: Reference | <0.06 ng/mL | [facility] | | | | Ranges: | | [facility] | | | | 0.00-0.06 = NORMAL | | MEDICAL | | | | >0.06 | | CENTER - | | | | = SUSPICIOUS FOR | | LABORATORY | | | | MYOCARDIAL DAMAGE | | | | | | NOTE: Values greater | | | | | | than 0.50 ng/mL have | | | | | | been shown to be | | | | | | strongly associated with | | | | | | acute myocardial | | | | | | infarction. The | | | | | | [employer] | | | | | | Cardiology (ACC) | | | | | | recommends a decision | | | | | | limit of 0.06 ng/mL for | | | | | | this assay. Results | | | | | | greater than 0.06 can | | | | | | reflect a pre-infarct | | | | | | acute coronary | | | | | | syndrome, but can also | | | | | | reflect myocardial | | | | | | necrosis or injury | | | | | | that is not due to | | | | | | coronary artery | | | | | | disease. Some of these | | | | | | causes are sepsis, | | | | | | hypocolemia, atrial | | | | | | fibrillation, heart | | | | | | failure, pulmonary | | | | | | embolism, myocarditis, | | | | | | myocardial contusion, | | | | | | and renal failure. The | | | | | | diagnosis of myocardial | | | | | | infarction should be | | | | | | based on a combination | | | | | | of the patient's | | | | | | clinical presentation | | | | | | and the clinical | | | | | | laboratory test results | | | | | | (especially serial | | | | | | troponin levels). | | | | + + + + + + + + | Specimen | + + | | + + + + + + + | Performing | Address | [facility]/Zipcode | Phone Number | | Organization | | | | + + + + + | [facility] | [address] | [place], [place] | [phone] | | [facility] | | [address] | | | - LABORATORY | | | | + + + + + | [facility] | [address] | [place], [place] | | | [facility] | | [address] | | | - LABORATORY | | | | + + + + + Culture, MRSA (07/24/2013 3:48 AM PST) + + | Specimen | + + | | + + + + + + + | Performing | Address | City/State/Zipcode | Phone Number | | Organization | | | | + + + + + | [facility] | [address] | [place] | [phone] | | [facility] | | [address] | | | - LABORATORY | | | | + + + + + Urinalysis, Reflex Microscopic and/or Culture (07/24/2013 12:03 AM PST) + + + + + + | Component | Value | Ref Range | Performed | Pathologist | | | | | At | Signature | + + + + + + | COLLECTION | VOID | | [facility] | | | METHOD [facility] | | | [facility] | | | | | | MEDICAL | | | | | | CENTER - | | | | | | LABORATORY | | + + + + + + | Color, | YELLOW | | [facility] | | | Urine | | | [facility] | | | | | | MEDICAL | | | | | | CENTER - | | | | | | LABORATORY | | + + + + + + | Clarity, | CLEAR | | [facility] | | | Urine | | | [facility] | | | | | | MEDICAL | | | | | | CENTER - | | | | | | LABORATORY | | + + + + + + | Glucose, | NEGATIVE | NEGATIVE mg/dL | [facility] | | | Urine | | | [facility] | | | | | | MEDICAL | | | | | | CENTER - | | | | | | LABORATORY | | + + + + + + | Bilirubin, | NEGATIVE | NEGATIVE | [facility] | | | Urine | | | [facility] | | | | | | MEDICAL | | | | | | CENTER - | | | | | | LABORATORY | | + + + + + + | Ketones, | NEGATIVE | NEGATIVE | [facility] | | | Urine | | | [facility] | | | | | | MEDICAL | | | | | | CENTER - | | | | | | LABORATORY | | + + + + + + | Specific | >=1.030 | 1.001 - 1.030 | [facility] | | | [place], | | | [facility] | | | Urine | | | MEDICAL | | | | | | CENTER - | | | | | | LABORATORY | | + + + + + + | Blood, | TRACE-INTACT | NEGATIVE | [facility] | | | Urine | | | [facility] | | | | | | MEDICAL | | | | | | CENTER - | | | | | | LABORATORY | | + + + + + + | pH, Urine | 5.5 | 5.0 - 8.0 | [facility] | | | | | | [facility] | | | | | | MEDICAL | | | | | | CENTER - | | | | | | LABORATORY | | + + + + + + | Protein, | NEGATIVE | NEGATIVE mg/dL | [facility] | | | Urine | | | [facility] | | | | | | MEDICAL | | | | | | CENTER - | | | | | | LABORATORY | | + + + + + + | Urobilinoge | NORMAL | NORMAL EU/dL | [facility] | | | n, Urine | | | [facility] | | | | | | MEDICAL | | | | | | CENTER - | | | | | | LABORATORY | | + + + + + + | Nitrite, | NEGATIVE | NEGATIVE | [facility] | | | Urine | | | [facility] | | | | | | MEDICAL | | | | | | CENTER - | | | | | | LABORATORY | | + + + + + + | Leukocyte | SMALL | NEGATIVE | [facility] | | | Esterase, | | | [facility] | | | Urine | | | MEDICAL | | | | | | CENTER - | | | | | | LABORATORY | | + + + + + + | White Blood | 30-50 (H) | 0 - 5 /hpf | [facility] | | | Cells, | | | [facility] | | | Urine | | | MEDICAL | | | | | | CENTER - | | | | | | LABORATORY | | + + + + + + | Red Blood | 10-30 (H) | 0 - 3 /hpf | [facility] | | | Cells, | | | [facility] | | | Urine | | | MEDICAL | | | | | | CENTER - | | | | | | LABORATORY | | + + + + + + | Squamous | MODERATE (H) | FEW /hpf | [facility] | | | Epithelial | | | [facility] | | | Cells, | | | MEDICAL | | | Urine | | | CENTER - | | | | | | LABORATORY | | + + + + + + | Bacteria, | MODERATE | NONE /hpf | [facility] | | | Urine | | | [facility] | | | | | | MEDICAL | | | | | | CENTER - | | | | | | LABORATORY | | + + + + + + | Amorphous | MODERATE | /hpf | [facility] | | | Crystals, | | | [facility] | | | Urine | | | MEDICAL | | | | | | CENTER - | | | | | | LABORATORY | | + + + + + + | Culture | YESComment: REFLEXED TO | | [facility] | | | Indicated | URINE CULTURE. | | [facility] | | | | | | MEDICAL | | | | | | CENTER - | | | | | | LABORATORY | | + + + + + + + + | Specimen | + + | | + + + + + + + | Performing | Address | City/State/Zipcode | Phone Number | | Organization | | | | + + + + + | [facility] | [address] | [place], [place] | [phone] | | [facility] | | [address] | | | - LABORATORY | | | | + + + + + | [facility] | [address] | [place], [place] | | | [facility] | | [facility], [facility] | | | - LABORATORY | | | | + + + + + Basic Metabolic Panel (07/23/2013 10:34 PM PST) + + + + + + | Component | Value | Ref Range | Performed | Pathologist | | | | | At | Signature | + + + + + + | Glucose | 207 (H) | 70 - 109 mg/dL | [facility] | | | | | | [facility] | | | | | | MEDICAL | | | | | | CENTER - | | | | | | LABORATORY | | + + + + + + | Calcium | 8.9 | 8.3 - 10.5 | [facility] | | | | | mg/dL | [facility] | | | | | | MEDICAL | | | | | | CENTER - | | | | | | LABORATORY | | + + + + + + | BUN | 21 (H) | 7 - 18 mg/dL | [facility] | | | | | [facility] | | | | | | [facility] | | | | | | CENTER - | | | | | | LABORATORY | | + + + + + + | Creatinine | 0.86 | 0.60 - 1.30 | [facility] | | | | | mg/dL | [facility] | | | | | | MEDICAL | | | | | | CENTER - | | | | | | LABORATORY | | + + + + + + | Estimated | >60Comment: For | >60 mL/min/A | [facility] | | | GFR | -Americans, | | [facility] | | | | please multiply the | | MEDICAL | | | | result by 1.210 | | CENTER - | | | | This is an estimated | | LABORATORY | | | | GFR and is based on a | | | | | | standard adult | | | | | | body mass (A=1.73m2) and | | | | | | serum creatinine | | | | + + + + + + | BUN/Creatin | 24.4 (H) | 12 - 20 | [facility] | | | ine Ratio | | | [facility] | | | | | | MEDICAL | | | | | | CENTER - | | | | | | LABORATORY | | + + + + + + | Na | 138 | 136 - 149 mEq/L | [facility] | | | | | | [facility] | | | | | | MEDICAL | | | | | | CENTER - | | | | | | LABORATORY | | + + + + + + | K | 3.7 | 3.5 - 5.1 mEq/l | [facility] | | | | | | [facility] | | | | | | MEDICAL | | | | | | CENTER - | | | | | | LABORATORY | | + + + + + + | Cl | 105 | 98 - 109 mEq/l | [facility] | | | | | | [facility] | | | | | | MEDICAL | | | | | | CENTER - | | | | | | LABORATORY | | + + + + + + | CO2 | 23 (L) | 24 - 31 mEq/L | [facility] | | | | | | [facility] | | | | | | MEDICAL | | | | | | CENTER - | | | | | | LABORATORY | | + + + + + + | Anion Gap | 13.7 | 6.0 - 17.0 | [facility] | | | | | | [facility] | | | | | | MEDICAL | | | | | | CENTER - | | | | | | LABORATORY | | + + + + + + + + | Specimen | + + | | + + + + + + + | Performing | Address | City/State/Zipcode | Phone Number | | Organization | | | | + + + + + | [facility] | [address] | [place], [place] | [phone] | | [facility] | | [address] | | | - LABORATORY | | | | + + + + + | [facility] | [address] | [place], [place] | | | [facility] | | [id number] | | | - LABORATORY | | | | + + + + + Troponin I (07/23/2013 10:34 PM PST) + + + + + + | Component | Value | Ref Range | Performed | Pathologist | | | | | At | Signature | + + + + + + | Troponin I | 0.01Comment: Reference | <0.06 ng/mL | [facility] | | | | Ranges: | | [facility] | | | | 0.00-0.06 = NORMAL | | MEDICAL | | | | >0.06 | | CENTER - | | | | = SUSPICIOUS FOR | | LABORATORY | | | | MYOCARDIAL DAMAGE | | | | | | NOTE: Values greater | | | | | | than 0.50 ng/mL have | | | | | | been shown to be | | | | | | strongly associated with | | | | | | acute myocardial | | | | | | infarction. The | | | | | | [employer] | | | | | | Cardiology (ACC) | | | | | | recommends a decision | | | | | | limit of 0.06 ng/mL for | | | | | | this assay. Results | | | | | | greater than 0.06 can | | | | | | reflect a pre-infarct | | | | | | acute coronary | | | | | | syndrome, but can also | | | | | | reflect myocardial | | | | | | necrosis or injury | | | | | | that is not due to | | | | | | coronary artery | | | | | | disease. Some of these | | | | | | causes are sepsis, | | | | | | hypocolemia, atrial | | | | | | fibrillation, heart | | | | | | failure, pulmonary | | | | | | embolism, myocarditis, | | | | | | myocardial contusion, | | | | | | and renal failure. The | | | | | | diagnosis of myocardial | | | | | | infarction should be | | | | | | based on a combination | | | | | | of the patient's | | | | | | clinical presentation | | | | | | and the clinical | | | | | | laboratory test results | | | | | | (especially serial | | | | | | troponin levels). | | | | + + + + + + + + | Specimen | + + | | + + + + + + + | Performing | Address | City/State/Zipcode | Phone Number | | Organization | | | | + + + + + | [facility] | [address] | [place], [place] | [phone] | | [facility] | | [address] | | | - LABORATORY | | | | + + + + + | [facility] | [address] | [place], [place] | | | [facility] | | [id number] [place] [address] | | | - LABORATORY | | | | + + + + + Magnesium (07/23/2013 10:34 PM PST) + +-------+ + + + | Component | Value | Ref Range | Performed | Pathologist | | | | | At | Signature | + +-------+ + + + | Magnesium | 2.1 | 1.8 - 2.5 mg/dL | [facility] | | | | | [...] | + + + + + | [facility] | [address] | [place] | [phone] | | [facility] | | [address] | | | - LABORATORY | | | | + + + + + | [facility] | [address] | [place] | | | [facility] | | [address] | | | - LABORATORY | | | | + + + + + documented in this encounter Visit Diagnoses Not on filedocumented in this encounter"
--- OUTSIDE RECORDS SUMMARY | ~2020-02-08 | XMS | Clinical Summary ---
Demographics + + + | Address | [address] | | | [place] [address] | + + + | Home Phone | | + + + | Preferred Language | Unknown | + + + | Marital Status | | + + + | Confucianist Affiliation | 1077 | + + + | Race | White | + + + | Ethnic Group | Not or | + + + Author + + + | Author | [facility] | | | and [place] | + + + | Organization | [facility] | | | and [...] [place] | | | | | [address] | | + + + + + | Han Holt | ECON | [address] | | | | | [place] | | | | | [address] | | + + + + + Care Team Providers + +------+ + | Care Solid Tire Finisher Name | Role | Phone | + +------+ + | Alfred Jones MD | PCP | | + +------+ + Allergies No Known Allergies Medications + + + +---------+------+------+-------+ | Medication | Sig | Dispensed | Refills | Star | End | Statu | | | | | | t | Date | s | | | | | | Date | | | + + + +---------+------+------+-------+ | ALPRAZolam (XANAX) | 1 tablet by mouth | | 0 | 08/2 | | Activ | | 0.25 mg tablet | twice daily as | | | 0/20 | | e | | | needed | | | 12 | | | + + + +---------+------+------+-------+ | sotalol (BETAPACE) | TAKE 1 TABLET TWICE | 180 | 3 | 03/2 | | Activ | | 80 mg tablet | DAILY | tablet | | 6/20 | | e | | | | | | 18 | | | + + + +---------+------+------+-------+ Active Problems + + + | Problem | Noted Date | + + + | VARICOSE VEIN | | + + + | IRRITABLE BOWEL SYNDROME, HX OF | | + + + | Paroxysmal atrial fibrillation | | + + + | Paroxysmal supraventricular tachycardia | | + + + | Palpitations [...] | | + + + + + Plan of Treatment + + + + + | Health Maintenance | Due Date | Last | Comments | | | | Done | | + + + + + | Vaccine: | | | | | Dtap/Tdap/Td (1 - | 9 | | | | Tdap) | | | | + + + + + | Vaccine: Zoster (1 | | | | | of 2) | 0 | | | + + + + + | Vaccine: | | | | | Pneumococcal 65+ (1 | 5 | | | | of 1 - PPSV23) | | | | + + + + + | Adult Annual | | | | | Wellness Visit | 5 | | | + + + + + | Vaccine: Influenza | | 04/28/20 | | | (#1) | 0 | 18 | | + + + + + Results Not on filefrom Last 3 Months Insurance + +--------+ +--------+ +---------+--------+ | Payer | Benefi | Subscriber | Effect | Phone | Address | Type | | | t Plan | ID | no | | | | | | / | | Dates | | | | | | Group | | | | | | + +--------+ +--------+ +---------+--------+ | MEDICARE | MEDICA | [id number] | | [phone] | | Medica | | | RE | | 995-Pr | 5 | | re | | | PART A | | esent | | | | | | AND B | | | | | | + +--------+ +--------+ +---------+--------+ | AARP | AARP | [id number] | 10/15/19 | [phone] | | Indemn | | | MDCR | | 14-Pre | 0 | | ity | | | SUPPL | | sent | | | | + +--------+ +--------+ +---------+--------+ + +--------+ +--------+ + + | Guarantor Name | Accoun | Relation to | Date | Phone | Billing Address | | | t Type | Patient | of | | | | | | | | | | + +--------+ +--------+ + + | Nayely Holt | Person | Self | [birth year] | [address] | | | al/Fam | | 1930 | [phone] | [place] [address] | | | [place] | | | 6 (Home) | | + +--------+ +--------+ + + Advance Directives + + + + + | Type | Date Recorded | Patient | Explanation | | | | Museum Preparator | | + + + + + | Power of | | | | | Air Brake Mechanic | | | | + + + + + | Advance | | | | | Directive | | | | + + + + +
--- OUTSIDE RECORDS SUMMARY | ~2020-02-08 | XMS | Encounter Summary ---
Demographics + + + | Address | [address] | | | [place] [address] | + + + | Home Phone | | + + + | Preferred Language | Unknown | + + + | Marital Status | | + + + | [employer] Affiliation | 1077 | + + + | Race | White | + + + | Ethnic Group | Not or | + + + Author + + + | Author | [facility] | | | and [place] | + + + | Organization | [facility] | | [...] [place] | | | | | [address] | | + + + + + | Han Holt | ECON | [address] | | | | | [place] | | | | | [address] | | + + + + + Care Team Providers + +------+ + | Care Director Of Agriculture Name | Role | Phone | + +------+ + PCP | Unavailable | + +------+ + Encounter Details +--------+ + + + + | Date | Type | Department | Care Team | Description | +--------+ + + + + | 04/02/ | Hospital | [facility] | | | | 2010 - | Encounter | [facility] | | | | | | [address] | | | | 04/04/ | | [place] [address] | | | | 2010 | | [phone] | | | +--------+ + + + [...] SUMMARY PRIMARY CARE PHYSICIAN: Alfred Jones MD PREPRESS PROOFER: Dada Grant MD, [facility] DISCHARGE DIAGNOSES 1. PAROXYSMAL ATRIAL FIBRILLATION. 2. TRANSIENT SINUS NODE PAUSE. 3. 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 4. ANXIETY. DISCHARGE MEDICATIONS 1. Sotalol 40 mg b.i.d. 2. Warfarin 5 mg daily. 3. Ecotrin 81 mg daily. 4. Neosporin ointment t.i.d. ALLERGIES: NO KNOWN DRUG ALLERGIES. HOSPITAL COURSE: An 80-year-old female came in with long history of paroxysmal at [facility]. She had been symptomatic recently with weakness, dyspnea, and palpitati ons. She had stress t est, including drug stress nuclear, and echocardiogram, which were laura th negative on the day prior to admission. She had held her atenolol for stress test, and t mike that evening taken the atenolol, but d eveloped tachy arrhythmia. At [place] [facility], they gave her Diltiazem IV and noted 2 to 3-second sinus pause. With concerns that she may require emergent pacemaker, she was transferred t o [facility]. The patient's rhythm was reviewed and I started her on sotalol 80 mg p.o. She converted to a sinus rh hm. Her baseline P-R interval of 210 msec [...] to 70, and no atrial ectopy. The murphy yancey states she is feeling well. Th e patient will be discharged home at this time, with the initiati on of Coumadin, which nee ds to be followed by her local physician. INR daily with results to Dr. Greg Jones. Follow up with Dr. Greg Jones in one week. Follow up with Chris Grant on 04/16/2011, at 12:15, phone number [phone]. Heart-heal thy diet. Activity as tolerated. Return [...] BY: Aly Toribio MD Hospitalist JOB #: [id number] EXT JOB #:[id number] cc: MD Dada Ochoa MD, FAC <Electronically Signed by Aly Toribio MD> 04/17/112034 documented in this encounter H&P Notes Aly Toribio MD - 04/02/2011 5:48 PM PDTDATE: 04/02/2011 CHIEF COMPLAINT: Palpitations. HISTORY OF PRESENT ILLNESS: An 80-year-old female presented to [place] at [facility] with history of paroxysmal atrial fibrillation. She had been noting palp itations. The patient states that she had stress tests and echo done the day before. She fe lt okay until she went home. stephania took her atenolol and went to sleep but 2 hours later awo ke with tachycardia. She states that ateno lol has never worked, and she has had tachycardi a despite atenolol for the last couple of years. She previously was on amiodarone and did f ine until the doctor became concerned regarding correction use o f amiodarone and stopped th e medication. She states she had eye exams yearly, which were okay, and stephania also had no sy mptoms with her lungs. The patient denies chest pain now or in the past. She has never had coronary artery disease . PAST MEDICAL HISTORY 1. Paroxysmal atrial fibrillation. 2. Anxiety. FAMILY HISTORY: Mom lived to 100+. Father at 86 with stroke. Two sisters, one with Alz heimer's. SOCIAL HISTORY: Tobacco: She smoked some when she was adolescent. She does not drink alcoho l. She wan ts FULL CODE. No prolonged life support. MEDICATIONS 1. Atenolol 25 mg daily. 2. Xanax 0.25 mg 3 times a day. ALLERGIES: NO KNOWN DRUG ALLERGIES. REVIEW OF SYSTEMS CONSTITUTIONAL: No fevers, chills. CARDIOVASCULAR: No chest pain. She had occasional skipped beat or missed beat. She denies p alpitation s, though. She is currently in atrial fibrillation. RESPIRATORY: No shortness of breath, cough, wheezing. GASTROINTESTINAL: No nausea, vomiting. She denies recent diarrhea or constipation. MUSCULOSKELETAL: She has had cramps. She had left foot surgery for bunionectomy but had a n erve injur ed, and since that time she has had bunion pain. She had cramps while we were in the room and states that it is relieved immediately on taking a bite of a dill pickle. She states it is not psychological but truly works. SKIN: No complaints. NEUROLOGIC: She has never had a stroke. HEMATOLOGIC: She denies bleeding. PHYSICAL EXAMINATION VITAL SIGNS: Blood pressure 131/75, pulse 84 and irregular, respirations 14. She is intermi ttently 13 3 and atrial fibrillation. SKIN: Not jaundiced, not cyanotic, sclerae not icteric. CONSTITUTIONAL: Mood and affect are appropriate but anxious. CARDIOVASCULAR: Irregular rate and rhythm. LUNGS: Clear to auscultation bilaterally. No rales or wheezes. ABDOMEN: Positive bowel sounds, soft, nontender. EXTREMITIES: Calves with no tenderness, cords, pretibial edema. Peripheral pulses 2+ bilate ral radial and dorsal pedal. At the time of her cramp her left calf was with spasm. With ma ssage and dorsiflexi on of her ankle, this did improve. LABORATORIES: The labs are from [facility], show chemistry panel significant fo r potassiu m of 3.9, magnesium 1.9, both of which are low normal. Cardiac enzymes negative. BUN 15, creatinine 0 .63. LFTs normal. CBC normal. Platelets 246. EKGs from [facility]. One showed atrial flutter with 2:1 block running 145. The other is sinus rhy thm with NM interval of 208 and rSR' consistent with right ventricular conductio n delay. EKG here alonzo ws atrial fibrillation with occasional sinus beat and first degree AV block on the sinus beat. Rhythm monitoring from [facility] shows atrial fibrillation/fl utter and pauses up to 3 seconds with conv ersion to sinus rhythm, which does not remain si nus rhythm. ASSESSMENT 1. PAROXYSMAL ATRIAL FIBRILLATION. 2. SINUS PAUSE ON CONVERSION. 3. ANXIETY. PLAN: The patient has been anticoagulated with Lovenox. She may require cardioversion, but that seems unlikely given that she is in and out of sinus rhythm. I considered putting her back on amiodarone b ut will start sotalol 80 mg now and q.8 hours, hold for sinus rhythm l ess than 70 rate. Magnesium and potassium will be replaced. Dr. Grant to see patient fo r potential pacemaker needs. One hour cri tical care time. DICTATED BY: Aly Toribio MD Hospitalist JOB #: [id number] EXT JOB #:[id number] cc: MD Dada Norton MD, [facility] <Electronically Signed by Aly Toribio MD> 04/03/11 0726 documented in this encounter Procedure Notes Charlie Tom MD - 04/02/2011 5:48 PM PDTDATE: 04/04/2011 TIME: 5:42 Sinus bradycardia. First degree AV block. Possible left atrial enlargement. RSR' lead V2. DICTATED BY: Charlie Tom MD Internal Medicine JOB #: [id number] EXT JOB #:[id number] cc: Aly Toribio MD <Electronically Signed by Charlie Tom MD> 04/22/11 0810 Charlie Tom MD - 04/02/2011 5:48 PM PDTDATE: 04/02/2011. TIME: 1840. EKG is of suboptimal quality. Underlying sinus rhythm with first degree AV block. Frequent PACs. Appr oximately 1 second pause. Incomplete right bundle branch block. Nonspecific infe rior T-wave abnormali ties. DICTATED BY: Charlie Tom MD Internal Medicine JOB #: [id number] EXT JOB #:[id number] cc: Aly Toribio MD <Electronically Signed by Charlie Tom MD> 04/11/11 1654 documented in this encounter Consult Notes Elin Maradiaga ARNP - 04/02/2011 5:48 PM PDTDATE: 04/03/2011 CONSULTING PHYSICIAN: Dada Grant MD, FACC CONSULTING PHYSICIAN: Dada Grant MD, FACC REFERRING PHYSICIAN: Aly Toribio MD REASON FOR CONSULTATION: Atrial fibrillation with tachycardia/bradycardia syndrome. HISTORY OF PRESENT ILLNESS: Nayely Holt is an 80-year-old female with a history of paroxy smal atria l fibrillation, with palpitations and hypertension. She was admitted to [facility] 04/02, in transfer from [facility], for her atrial fibrilla tion with tachycardia/bradycardi a syndrome. She is being seen by cardiology at the request of Dr. Toribio for the same. The patient was seen it in consultation in our office 03/04/2011, after failing amiodarone therapy. T he patient reports that she had been on amiodarone for several years to treat he r paroxysmal atrial f ibrillation, however, she was having breakthrough episodes, and she w as asked to increase this to twi ce daily, at which point her PCP changed, and there was co ncern about the issue of lung toxicity, and this was discontinued. She was then treated on atenolol alone, and she was having breakthrough episo himanshu of tachycardia, and was very symp tomatic with this. She was scheduled for an echocardiogram and a nuclear medicine stress te st after her consultation visit. Her nuclear medicine stress test showed n ormal myocardial perfusion imaging, and her echocardiogram showed normal left ventricular size, with ejecti on fraction of 75%. She then had recurrent palpitations that were not resolving, and she fel t l ightheaded and short of breath with this. She presented to the emergency department at [facility] in [place]. She was given diltiazem IV to treat her tachycardia, and she th en had bradycardia, with positive and a profound way low heart rate, associated with presyn cope. At that point, she was trans ferred to [facility] for consideration of a pacemaker placement. Since her admission, she has been started on sotalol 80 mg 3 times daily to treat her atria l fibrilla tion. She converted, and has had only one dose of sotalol thus far has been in s inus rhythm/sinus bra dycardia since last night. She was low as 55 beats per minute in sinu s bradycardia, but has had no fu rther profound bradycardia while in sinus rhythm. During h er interview, she reports that she is comfo rtable, she has had no recurrent symptoms of pa lpitations, no further lightheadedness or shortness of breath since converting to sinus rhy thm. PAST MEDICAL HISTORY 1. Paroxysmal atrial fibrillation, with tachycardia/bradycardia syndrome. A. History of pa roxysmal atrial fibrillation with use of amiodarone, which was discontinued due to is rolo o f lung toxicity. B. Echocardiogram 04/01/2011, shows a normal left ventricular size wall thickness at motion , LVEF 75% , grade 1 left ventricular diastolic dysfunction, trace mitral valve regurgitati on, mild tricuspid va lve regurgitation, mild pulmonary hypertension, with peak systolic pr essure of 40 mmHg. 2. Atypical chest pain. A. Adenosine nuclear medicine stress test on 04/01/2011, shows a normal myocardial perfusio n imaging study, normal left ventricular size wall thickness, with LVEF by gated SPECT of 8 4%, which is hyperdy namic. 3. Dyslipidemia. 4. Irritable bowel syndrome. 5. History of varicose veins. PAST SURGICAL HISTORY 1. Hammer toe surgery. 2. Bunion removal. 3. Shoulder surgery. 4. Cataract removal. 5. Total abdominal hysterectomy. 6. Cholecystectomy in 2008. CURRENT MEDICATIONS 1. Aspirin 81 mg daily. 2. Fragmin 10,000 units daily subcutaneous. 3. Sotalol 80 mg every 8 hours. 4. Lorazepam 0.5 mg every 6 hours as needed. ALLERGIES: NO KNOWN DRUG ALLERGIES. SOCIAL HISTORY: She is to [place] since [place]. She has 4 children living, she had one t hat from cancer. 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 FAMILY HISTORY: Her father at age 86 of a stroke. Her mother at age 100 of old ag e. She has 2 sisters living, with no other cardiac disease known amongst them. REVIEW OF SYSTEMS GENERAL: Positive for some fatigue. Denies fevers or chills. EYES: Denies recent vision changes. ENT: Denies recent hearing changes. CARDIOVASCULAR: Positive for chest pain, palpitations, presyncope. Denies orthopnea, PND, o r peripher al edema. RESPIRATORY: Denies shortness of breath currently, but had shortness of breath on admission with palp itations. GASTROINTESTINAL: Denies nausea or vomiting. GENITOURINARY: Denies dysuria. MUSCULOSKELETAL: Positive for some mild arthritis pain. Denies muscle weakness. SKIN: Denies rashes, itching, or suspicious lesions. NEUROLOGIC: Denies paresthesias, seizures, tremors, balance problems, memory impairment. HEMATOLOGIC: Denies abnormal bruising and bleeding. ENDOCRINE: Denies heat or cold intolerance. PHYSICAL EXAMINATION VITAL SIGNS: Blood pressure 92/43 mmHg, heart rate 56 beats per minute, respiratory rate 16 breaths/m in, oxygen saturation 98% on room air. CONSTITUTIONAL: The patient is an elderly female, well groomed, in no acute distress. EYES: Conjunctiva and lids without deformity. Sclerae clear. ENT: Mucosa shows no pallor or cyanosis. NECK: No significant JVD. Carotid pulses 2+ bilaterally. No bruits heard. RESPIRATORY: Lungs are clear to auscultation. No adventitious breath sounds heard. No inter costal ret ractions or use of accessory muscles noted. CARDIOVASCULAR: Normal PMI at fifth intercostal space, midclavicular line. No heaves, or th rills. Nor mal S1, S2. No S3, S4, murmur, or rubs. GASTROINTESTINAL: Abdomen is soft, normal, nontender, with normoactive bowel tones, no hepa tosplenome jerome. Unable to palpate abdominal aorta. No bruits heard. EXTREMITIES: No cyanosis, clubbing, edema or varicosities. Femoral pulses 2+ bilaterally. P edal pulse s 1+ bilaterally. NEUROLOGIC: Alert and oriented x3. No depression, anxiety or agitation noted. MUSCULOSKELETAL: She reports that she has difficulty walking very long distance due to foot pain, and has historically not been able to undergo exercise testing. SKIN: No obvious lesions. LABORATORY/RADIOLOGIC FINDINGS: CBC shows WBCs 4.4, hemoglobin 13.8, hematocrit 41.2, plate lets 224. Chemistry shows sodium 138, potassium 4.4, chloride 102, CO2 25, BUN 17, creatini ne 0.67, glucose 97, magnesium 2.6. TSH normal at 1.48. PT and INR 15.0 and 1.2 respectivel y. ECG 04/02/2011, shows atria l fibrillation, with rapid ventricular rate of 103 beats per minute. ASSESSMENT: PAROXYSMAL ATRIAL FIBRILLATION/FLUTTER WITH TACHYCARDIA/BRADYCARDIA SYNDROME. S he has had rapid ventricular response and atrial fibrillation, as well as a positive 4 seco nds when given dilti azem intravenous. She is now in sinus rhythm on sotalol. She has no sy mptoms of congestive heart fail ure. Her CHADS2 score is 1 for age greater than 75. So, at this point, she is recommended warfarin to help minimize her risk of stroke. Her sotalol wi ll be changed to 80 mg twice daily, and we will plan to continue with this to maintain sinu s rhythm. If she has recurrent atrial fibrillation with tachyc ardia/bradycardia, would cheng n to implant a dual-chamber permanent pacemaker to prevent bradycardia, w dorothy allowing andrea atment of her tachycardia. At this point, will differ, as she is not having any sign ifican t bradycardia or symptoms while maintaining a normal sinus rhythm. PLAN: She will be started on Coumadin 5 mg daily to minimize her risk of stroke. Will plan to keep he r INR between 2 and 3. If she has recurrent tachycardia/bradycardia in atrial fi brillation, or worsen ing bradycardia, or symptomatic bradycardia, would plan to implant a dual chamber permanent pacemaker . The risks and benefits of this REPORT ENDS HERE, INCOMPLETE DICTATED BY: MALIK Lee Dictated For: Dada Grant MD, [facility] Cardiology JOB #: [id number] EXT JOB #:[id number] EDITED: 04/05/2011 07:30 cc: Aly Toribio MD documented in this encounter Plan of Treatment [...] + + documented in this encounter Results Protime INR (04/04/2011 4:12 AM PDT) + + [...] + | [facility] | [address] | [place] | [phone] | | [facility] | | [address] | | | - LABORATORY | | | | + + + + + | [facility] | [address] | [place], [place] | | | [facility] | | [id number] | | | - LABORATORY | | | | + + + + + CBC no Differential (04/04/2011 4:12 AM PDT) + + + + + + | Component | Value | Ref Range | Performed | Pathologist | | | | | At | Signature | + + + + + + | White Blood | 4.9 (A) | 4.0 - 11.0 K/uL | [facility] | | | Cells | | | [facility] | | | | | | MEDICAL | | | | | | CENTER - | | | | | | LABORATORY | | + + + + + + | Red Blood | 4.31 | 3.70 - 5.20 | [facility] | | | Cells | | M/uL | [facility] | | | | | [...] | | | Count | | | [facility] | | [...] [address] | [place] | [phone] | | [facility] | | [address] | | | - LABORATORY | | | | + + + + + | [facility] | [address] | [place] | | | [facility] | | [address], [facility] | | | - LABORATORY [...] + | [facility] | [address] | [place] | [phone] | | [facility] | | [address] | | | - LABORATORY | | | | + + + + + | [facility] | [address] | [place] | | | [facility] | | [id number] | | | - LABORATORY | | | | + + + + + CBC no Differential (04/03/2011 8:26 AM PDT) + +-------+ + + + | Component | Value | Ref Range | Performed | Pathologist | | | | | At | Signature | + +-------+ + + + | White Blood | 4.4 | 4.0 - 11.0 K/uL | [facility] | | | Cells | | | [facility] | | | | | | MEDICAL | | | | | | CENTER - | | | | | | LABORATORY | | + +-------+ + + + | Red Blood | 4.69 | 3.70 - 5.20 | [facility] | | | Cells | | M/uL | [facility] | [...] + | [facility] | [address] | [place], [place] | [phone] | | [facility] | | [address] | | | - LABORATORY | | | | + + + + + | [facility] | [address] | [place], [place] | | | [facility] | | [address] [place] [address] | | | - LABORATORY | | [...] 17 | 7 - 18 mg/dL | [facility] | | | | | | [facility] | | | | | | MEDICAL | | | | | | CENTER - | | | | | | LABORATORY | | + + + + + + | Creatinine | 0.67 | 0.60 - 1.30 | [facility] | | | | | mg/dL | [facility] | | | | | | MEDICAL | | | | | | CENTER - | | | | | | LABORATORY | | + + + + + + | Estimated | >60Comment: For | >60 mL/min/A | [facility] | | | GFR | -Americans, | | [facility] | | | | please multiply [...] + | [facility] | [address] | [place] | [phone] | | [facility] | | [address] | | | - LABORATORY | | | | + + + + + | [facility] | [address] | [place] | | | [facility] | | [address] | | | - LABORATORY | | | | + + + + + Magnesium (04/03/2011 3:48 AM PDT) + +---------+ + + + | Component | Value | Ref Range | Performed | Pathologist | | | | | At | Signature | + +---------+ + + + | Magnesium | 2.6 (H) | 1.8 - 2.5 mg/dL | [facility] | | | | | | [facility] | | | | | | MEDICAL [...] + | [facility] | [address] | [place], [place] | [phone] | | [facility] | | [address] | | | - LABORATORY | | | | + + + + + | [facility] | [address] | [place], [place] | | | [facility] | | [facility] | | | - LABORATORY | | | | + + + + + TSH (04/03/2011 3:48 AM PDT) + + + + + + | Component | Value | Ref Range | Performed | Pathologist | | | | | At | Signature | + + + + + + | TSH | 1.48Comment: Testing | 0.34 - 5.60 | [facility] | | | | performed on the [facility] | uIU/mL | [facility] | | | | [facility] | | MEDICAL | | | [...] + | [facility] | [address] | [place] | [phone] | | [facility] | | [address] | | | - LABORATORY | | | | + + + + + | [facility] | [address] | [place], [place] | | | [facility] | | [address] | | | - LABORATORY | | | | + + + + + Culture, MRSA (04/02/2011 10:33 PM PDT) + + | Specimen | + + | | + + + + + + + | Performing | Address | City/State/Zipcode | Phone Number | | Organization | | | | + + + + + | [facility] | [address] | [place], [place] | [phone] | | [facility] | | [address] | | | - LABORATORY | | | | + + + + + XR Chest AP Portable (04/02/2011 5:48 PM PDT) + + | Specimen | + + | | + + + + + | Narrative | Performed At | + + + | [facility] Diagnostic Imaging Department | [facility] | | [address] [facility] | [facility] | | PORTABLE CHEST, SINGLE AP VIEW [...] Transcribed Date/Time: 04/03/2011 | | | 08:18 Computer Hardware Developer: <Electronically Signed by João Lindo | | | MD Jacek> 04/03/11 1739 | | + + + + + | Procedure Note | + + | Naman, Kulwinder Conversion - 07/23/2013 4:03 PM [facility] | | Diagnostic Imaging Department [address] [facility] | | PORTABLE CHEST, SINGLE AP VIEW [...] | <Electronically Signed by João Read MD> 04/03/111648 | |FINDINGS: Surgical clips are noted in [...] 08:15 | |Transcribed Date/Time: 04/03/2011 08:18 | |Computer Hardware Developer: | |<Electronically Signed by João Read MD> 04/03/11 567 | + + + +---------+ + + | Performing | Address | City/State/Zipcode | Phone Number | | Organization | | | | + +---------+ + + | [place] | | | | | [place] | | | | + +---------+ + + documented in this encounter Visit Diagnoses Not on filedocumented in this encounter"
--- OUTSIDE RECORDS SUMMARY | ~2020-02-08 | XMS | Encounter Summary ---
Demographics + + + | Address | [address] | | | [place] [address] | + + + | Home Phone | | + + + | Preferred Language | Unknown | + + + | Marital Status | | + + + | Yarsani Affiliation | 1077 | + + + | Race | White | + + + | Ethnic Group | Not or | + + + Author + + + | Author | [facility] | | | and [place] | + + + | Organization | [facility] | | | [...] [place] | | | | | [address] | | + + + + + | Han Holt | ECON | [address] | | | | | [place] | | | | | [address] | | + + + + + Care Team Providers + +------+ + | Care Lot Attendant Name | Role | Phone | + [...] | | | | | | [place] [address] | | | | | | [phone] | | | +--------+ + + + [...]
--- OUTSIDE RECORDS SUMMARY | ~2020-02-08 | XMS | Encounter Summary ---
Demographics + + + | Address | [address] | | | [place] [address] | + + + | Home Phone | | + + + | Preferred Language | Unknown | + + + | Marital Status | | + + + | Islam Affiliation | 1077 | + + + | Race | White | + + + | Ethnic Group | Not or | + + + Author + + + | Author | [facility] | | | and [place] | + + + | Organization | [facility] | | [...] [place] | | | | | [address] | | + + + + + | Han Holt | ECON | [address] | | | | | [place] | | | | | [address] | | + + + + + Care Team Providers + +------+ + | Care Ski Patrol Name | Role | Phone | + +------+ + | Alfred Jones MD | PCP | | + +------+ + Encounter Details +--------+ + + + + | Date | Type | Department | Care Team | Description | +--------+ + + + + | 08/03/ | Orders Only | [facility] | Dada Grant, | Atrial fibrillation | | 2015 | | CARDIOLOGY [address] | (Primary Dx); | | | | [place], | [place], | Hyperlipidemia; | | | | [place] [address] | [place] [address] | Paroxysmal | | | | [phone] | [phone] | supraventricular | | | | | [...]
--- OUTSIDE RECORDS SUMMARY | ~2020-02-08 | XMS | Encounter Summary ---
Demographics + + + | Address | [address] | | | [place] [address] | + + + | Home Phone | | + + + | Preferred Language | Unknown | + + + | Marital Status | | + + + | Synagogue Affiliation | 1077 | + + + | Race | White | + + + | Ethnic Group | Not or | + + + Author + + + | Author | [facility] | | | and [place] | + + + | Organization | [facility] | | [...] [place] | | | | | [address] | | + + + + + | Han Holt | ECON | [address] | | | | | [place] | | | | | [address] | | + + + + + Care Team Providers + +------+ + | Care Electrical Engineering Director Name | Role | Phone | + [...] | SR | | | | | [address] [facility] | | | | | | [place], [place] | | | | | | [address] | | | | | | [phone] | | | +--------+ + + + [...]
--- OUTSIDE RECORDS SUMMARY | ~2020-02-08 | XMS | Encounter Summary ---
Demographics + + + | Address | [address] | | | [place] [address] | + + + | Home Phone | | + + + | Preferred Language | Unknown | + + + | Marital Status | | + + + | Moravian Affiliation | 1077 | + + + | Race | White | + + + | Ethnic Group | Not or | + + + Author + + + | Author | [facility] | | | and [place] | + + + | Organization | [facility] | | [...] [place] | | | | | [address] | | + + + + + | Han Holt | ECON | [address] | | | | | [place] | | | | | [address] | | + + + + + Care Team Providers + +------+ + | Care Pipe Buffer Name | Role | Phone | + +------+ + | Alfred Jones MD | PCP | | + +------+ + Encounter Details +--------+ + + + + | Date | Type | Department | Care Team | Description | +--------+ + + + + | 09/11/ | Abstract | [facility] | Yair, | | | 2016 | | CARDIOLOGY [address] | Sveta, CAS[place] PORTER [address] | | | | | [place], | [place], | | | | | [place] [address] | [place] [address] | | | | | [phone] | [phone] | | | | | | | [...] | EXTERNAL LAB: BUN | Routin | 08/30/2016 | | Results for this | | | e | 2:17 PM | | procedure are in the | | | | PDT | | results section. | + +--------+ + + + | EXTERNAL LAB: | Routin | 08/30/2016 | | Results for this | | GLUCOSE | e | 2:17 PM | | procedure are in the | | | | PDT | | results section. | + +--------+ + + + | EXTERNAL LAB: ALT | Routin | 08/30/2016 | | Results for this | | | e | 2:17 PM | | procedure are in the | | | | PDT | | results section. | + +--------+ + + + | EXTERNAL LAB: AST | Routin | 08/30/2016 | | Results for this | | | e | 2:17 PM | | procedure are in the | | | | PDT | | results section. | + +--------+ + + + | EXTERNAL LAB: | Routin | 08/30/2016 | | Results for this | | ALKALINE PHOSPHATASE | e | 2:17 PM | | procedure are in the | | | | PDT | | results section. | + +--------+ + + + | EXTERNAL LAB: | Routin | 08/30/2016 | | Results for this | | BILIRUBIN, TOTAL | e | 2:17 PM | | procedure are in the | | | | PDT | | results section. | + +--------+ + + + | EXTERNAL LAB: | Routin | 08/30/2016 | | Results for this | | ALBUMIN | e | 2:17 PM | | procedure are in the | | | | PDT | | results section. | + +--------+ + + + | EXTERNAL LAB: | Routin | 08/30/2016 | | Results for this | | PROTEIN, TOTAL | e | 2:17 PM | | procedure are in the | | | | PDT | | results section. | + +--------+ + + + | EXTERNAL LAB: | Routin | 08/30/2016 | | Results for this | | CALCIUM | e | 2:17 PM | | procedure are in the | | | | PDT | | results section. | + +--------+ + + + | EXTERNAL LAB: CARBON | Routin | 08/30/2016 | | Results for this | | DIOXIDE | e | 2:17 PM | | procedure are in the | | | | PDT | | results section. | + +--------+ + + + | EXTERNAL LAB: | Routin | 08/30/2016 | | Results for this | | CHLORIDE | e | 2:17 PM | | procedure are in the | | | | PDT | | results section. | + +--------+ + + + | EXTERNAL LAB: | Routin | 08/30/2016 | | Results for this | | POTASSIUM | e | 2:17 PM | | procedure are in the | | | | PDT | | results section. | + +--------+ + + + | EXTERNAL LAB: SODIUM | Routin | 08/30/2016 | | Results for this | | | e | 2:17 PM | | procedure are in the | | | | PDT | | results section. | + +--------+ + + + | EXTERNAL LAB: CBC | Routin | 08/30/2016 | | Results for this | | | e | 2:17 PM | | procedure are in the | | | | PDT | | results section. | + +--------+ + + + | EXTERNAL LAB: | Routin | 08/30/2016 | | Results for this | | TRIGLYCERIDES | e | 2:17 PM | | procedure are in the | | | | PDT | | results section. | + +--------+ + + + | EXTERNAL LAB: | Routin | 08/30/2016 | | Results for this | | CHOLESTEROL, HDL | e | 2:17 PM | | procedure are in the | | | | PDT | | results section. | + +--------+ + + + | EXTERNAL LAB: | Routin | 08/30/2016 | | Results for this | | CHOLESTEROL, TOTAL | e | 2:17 PM | | procedure are in the | | | | PDT | | results section. | + +--------+ + + + | EXTERNAL LAB: | Routin | 08/30/2016 | | Results for this | | CHOLESTEROL, LDL | e | 2:17 PM | | procedure are in the | | | | PDT | | results section. | + +--------+ + + + | EXTERNAL LAB: EGFR | Routin | 08/30/2016 | | Results for this | | | e | 2:17 PM | | procedure are in the | | | | PDT | | results section. | + +--------+ + + + | EXTERNAL LAB: | Routin | 08/30/2016 | | Results for this | | CREATININE | e | 2:17 PM | | procedure are in the | | | | PDT | | results section. | + +--------+ + + + | LIPID PANEL | Routin | 08/30/2016 | | Results for this | | | e | 2:10 PM | | procedure are in the | | | | PDT | | results section. | + +--------+ + + + | CBC WITH | Routin | 08/30/2016 | | Results for this | | DIFFERENTIAL | e | 2:10 PM | | procedure are in the | | | | PDT | | results section. | + +--------+ + + + | COMPREHENSIVE | Routin | 08/30/2016 | | Results for this | | METABOLIC PANEL | e | 2:10 PM | | procedure are in the | | | | PDT | | results section. | + +--------+ + + + documented in this encounter Results External Lab: MARCELLA (08/30/2016 2:17 PM PDT) + +-------+ + + + | Component | Value | Ref Range | Performed | Pathologist | | | | | At | Signature | + +-------+ + + + | BUN, | 17 | 6 - 23 | EXTERNAL | | | External | | | LAB | | + +-------+ + + + + + | Resulting Agency Comment | + + | [facility] | + + + +---------+ + + | Performing | Address | City/State/Zipcode | Phone Number | | Organization | | | | + +---------+ + + | EXTERNAL LAB | | | | + +---------+ + + External Lab: Glucose (08/30/2016 2:17 PM PDT) + +-------+ + + + | Component | Value | Ref Range | Performed | Pathologist | | | | | At | Signature | + +-------+ + + + | Glucose, | 88 | 70 - 100 | EXTERNAL | | | External | | | LAB | | + +-------+ + + + + + | Resulting Agency Comment | + + | [facility] | + + + +---------+ + + | Performing | Address | City/State/Zipcode | Phone Number | | Organization | | | | + +---------+ + + | EXTERNAL LAB | | | | + +---------+ + + External Lab: ALT (08/30/2016 2:17 PM PDT) + +-------+ + + + | Component | Value | Ref Range | Performed | Pathologist | | | | | At | Signature | + +-------+ + + + | ALT, | 12 | 7 - 52 | EXTERNAL | | | External | | | LAB | | + +-------+ + + + + + | Resulting Agency Comment | + + | [facility] | + + + +---------+ + + | Performing | Address | City/State/Zipcode | Phone Number | | Organization | | | | + +---------+ + + | EXTERNAL LAB | | | | + +---------+ + + External Lab: TAWANA (08/30/2016 2:17 PM PDT) + +-------+ + + + | [...] Comment | + + | [facility] | + + + +---------+ + + | Performing | Address | City/State/Zipcode | Phone Number | | Organization | | | | + +---------+ + + | EXTERNAL LAB | | | | + +---------+ + + External Lab: Alkaline Phosphatase (08/30/2016 2:17 PM PDT) + +-------+ + + + | Component | Value | Ref Range | Performed | Pathologist | | | | | At | Signature | + +-------+ + + + | ALP, | 70 | 31 - 130 | EXTERNAL | | | External | | | LAB | | + +-------+ + + + + + | Resulting Agency Comment | + + | [facility] | + + + +---------+ + + | Performing | Address | City/State/Zipcode | Phone Number | | Organization | | | | + +---------+ + + | EXTERNAL LAB | | | | + +---------+ + + External Lab: Bilirubin, Total (08/30/2016 2:17 PM PDT) + +-------+ + + + | [...] + +---------+ + + External Lab: Albumin (08/30/2016 2:17 PM PDT) + +-------+ + + + | Component | Value | Ref Range | Performed | Pathologist | | | | | At | Signature | + +-------+ + + + | Albumin, | 3.7 | 3.5 - 5 | EXTERNAL | | | External | | | LAB | | + +-------+ + + + + + | Resulting Agency Comment | + + | [facility] | + + + +---------+ + + | Performing | Address | City/State/Zipcode | Phone Number | | Organization | | | | + +---------+ + + | EXTERNAL LAB | | | | + +---------+ + + External Lab: Protein, Total (08/30/2016 2:17 PM PDT) + +-------+ + + + | [...] Comment | + + | [facility] | + + + +---------+ + + | Performing | Address | City/State/Zipcode | Phone Number | | Organization | | | | + +---------+ + + | EXTERNAL LAB | | | | + +---------+ + + External Lab: Calcium (08/30/2016 2:17 PM PDT) + +-------+ + + + | Component | Value | Ref Range | Performed | Pathologist | | | | | At | Signature | + +-------+ + + + | Calcium, | 9.1 | 8.4 - 10.2 | EXTERNAL | | | External | | | LAB | | + +-------+ + + + + + | Resulting Agency Comment | + + | [facility] | + + + +---------+ + + | Performing | Address | City/State/Zipcode | Phone Number | | Organization | | | | + +---------+ + + | EXTERNAL LAB | | | | + +---------+ + + External Lab: Carbon Dioxide (08/30/2016 2:17 PM PDT) + +-------+ + + + | Component | Value | Ref Range | Performed | Pathologist | | | | | At | Signature | + +-------+ + + + | Carbon | 24 | 19 - 31 | EXTERNAL | [...] + +---------+ + + External Lab: Chloride (08/30/2016 2:17 PM PDT) + +-------+ + + + | [...] Comment | + + | [facility] | + + + +---------+ + + | Performing | Address | City/State/Zipcode | Phone Number | | Organization | | | | + +---------+ + + | EXTERNAL LAB | | | | + +---------+ + + External Lab: Potassium (08/30/2016 2:17 PM PDT) + +-------+ + + + | Component | Value | Ref Range | Performed | Pathologist | | | | | At | Signature | + +-------+ + + + | Potassium, | 4.1 | 3.6 - 5.1 | EXTERNAL | | | External | | | LAB | | + +-------+ + + + + + | Resulting Agency Comment | + + | [facility] | + + + +---------+ + + | Performing | Address | City/State/Zipcode | Phone Number | | Organization | | | | + +---------+ + + | EXTERNAL LAB | | | | + +---------+ + + External Lab: Sodium (08/30/2016 2:17 PM PDT) + +-------+ + + + | Component | Value | Ref Range | Performed | Pathologist | | | | | At | Signature | + +-------+ + + + | Sodium, | 137 | 132 - 143 | EXTERNAL | | | External | | | LAB | | + +-------+ + + + + + | Resulting Agency Comment | + + | [facility] | + + + +---------+ + + | Performing | Address | City/State/Zipcode | Phone Number | | Organization | | | | + +---------+ + + | EXTERNAL LAB | | | | + +---------+ + + External Lab: CBC (08/30/2016 2:17 PM PDT) + +---------+ + + + | Component | Value | Ref Range | Performed | Pathologist | | | | | At | Signature | + +---------+ + + + | WBC, | 3.8 (A) | 4.5 - 11 | EXTERNAL | | | External | | | LAB | | + +---------+ + + + | HGB, | 12.9 | 12 - 16 | EXTERNAL | | | External | | | LAB | | + +---------+ + + + | HCT, | 40.4 | 35 - 45 | EXTERNAL | | | External | | | LAB | | + +---------+ + + + | PLT, | 213 | 140 - 440 | EXTERNAL | | | External | | | LAB | | + +---------+ + + + | Neutrophils | 56.5 | 39 - 80 | EXTERNAL | | | %, | | | LAB | | | External | | | | | + +---------+ + + + | Lymphocytes | 24.6 | 24 - 44 | EXTERNAL | | | %, | | | LAB | | | External | | | | | + +---------+ + + + | Monocytes | 11.6 | 0 - 12 | EXTERNAL | | | %, External | | | LAB | | + +---------+ + + + | Eosinophils | 6.7 (A) | 0 - 6 | EXTERNAL | | | %, | | | LAB | | | External | | | | | + +---------+ + + + | RBC, | 4.68 | 3.8 - 5.1 | EXTERNAL | | | External | | | LAB | | + +---------+ + + + | MCV, | 86 | 81 - 99 | EXTERNAL | | | External | | | LAB | | + +---------+ + + + | RDW, | 13.7 | 10.5 - 15 | EXTERNAL | [...] + +---------+ + + External Lab: Triglycerides (08/30/2016 2:17 PM PDT) + +-------+ + + + | Component | Value | Ref Range | Performed | Pathologist | | | | | At | Signature | + +-------+ + + + | Triglycerid | 59 | 30 - 150 | EXTERNAL | | | es, | | | LAB | | | External | | | | | + +-------+ + + + + + | Specimen | + + | Blood specimen | | (specimen) | + + + + | Resulting Agency Comment | + + | [facility] | + + + +---------+ + + | Performing | Address | City/State/Zipcode | Phone Number | | Organization | | | | + +---------+ + + | EXTERNAL LAB | | | | + +---------+ + + External Lab: Cholesterol, HDL (08/30/2016 2:17 PM PDT) + +-------+ + + + | Component | Value | Ref Range | Performed | Pathologist | | | | | At | Signature | + +-------+ + + + | HDL | 85.6 | 40 mg/dl | EXTERNAL | | [...] +---------+ + + External Lab: Cholesterol, Total (08/30/2016 2:17 PM PDT) + +---------+ + + + | Component | Value | Ref Range | Performed | Pathologist | | | | | At | Signature | + +---------+ + + + | Cholesterol | 236 (A) | 200 mg/dl | EXTERNAL | | | , Total, | | | LAB | | | External | | | | | + +---------+ + + + + + | Specimen | + + | Blood specimen | | (specimen) | + + + + | Resulting Agency Comment | + + | [facility] | + + + +---------+ + + | Performing | Address | City/State/Zipcode | Phone Number | | Organization | | | | + +---------+ + + | EXTERNAL LAB | | | | + +---------+ + + External Lab: Cholesterol, LDL (08/30/2016 2:17 PM PDT) + +---------+ + + + | Component | Value | Ref Range | Performed | Pathologist | | | | | At | Signature | + +---------+ + + + | LDL | 139 (A) | 100 | EXTERNAL | | | Cholesterol | | | LAB | | | , Direct, | | | | | | External | | | | | + +---------+ + + + + + | Specimen | + + | Blood specimen | | (specimen) | + + + + | Resulting Agency Comment | + + | [facility] | + + + +---------+ + + | Performing | Address | City/State/Zipcode | Phone Number | | Organization | | | | + +---------+ + + | EXTERNAL LAB | | | | + +---------+ + + External Lab: eGFR (08/30/2016 2:17 PM PDT) + +-------+ + + + | Component | Value | Ref Range | Performed | Pathologist | | | | | At | Signature | + +-------+ + + + | eGFR, | 117 | 60 - 999 | EXTERNAL | | | External | | | LAB | | + +-------+ + + + + + | Specimen | + + | Blood specimen | | (specimen) | + + + + | Resulting Agency Comment | + + | [facility] | + + + +---------+ + + | Performing | Address | City/State/Zipcode | Phone Number | | Organization | | | | + +---------+ + + | EXTERNAL LAB | | | | + +---------+ + + External Lab: Creatinine (08/30/2016 2:17 PM PDT) + + + + + + | Component | Value | Ref Range | Performed | Pathologist | | | | | At | Signature | + + + + + + | Creatinine, | 0.50 (A) | 0.7 - 1.11 | EXTERNAL [...] + +---------+ + + CBC with Differential (08/30/2016 2:10 PM PDT) + +-------+ + + + | [...] + + + | % Basophils | 0.6 | 0.0 - 2.0 % | | | + +-------+ + + + + + | Specimen | + + | Blood specimen | | (specimen) | + + Comprehensive Metabolic Panel (08/30/2016 2:10 PM PDT) + + + + + + | Component | Value | Ref Range | Performed | Pathologist | | | | | At | Signature | + + + + + + | Anion Gap | 16 | 7 - 21 mmol/L | | | + + + + + + | BUN/Creatin | 34.0 (A) | 6.0 - 28.6 | | | | ine Ratio | | | | | + + + + + + | Globulin | 3 | 1.8 - 3.5 | | | + + + + + + | Albumin/Tiera | 1.2 | 1.1 - 2.4 | | | | bulin Ratio | | | | | + + + + + + + + | Specimen | + + | Blood specimen | | (specimen) | + + Lipid Panel (08/30/2016 2:10 PM PDT) + +---------+ + + + | Component | Value | Ref Range | Performed | Pathologist | | | | | At | Signature | + +---------+ + + + | Chol/HDL | 2.8 | 4.4 | | | | Ratio | | | | | + +---------+ + + + | VLDL | 12 | 4 - 40 mg/dL | | | | Cholesterol | | | | | | Miguel | | | | | + +---------+ + + + | Non-HDL | 150 (A) | 130 mg/dL | | | | Cholesterol | | | | | + +---------+ + + + + + | Specimen | + + | Blood specimen | | (specimen) | + + documented in this encounter Visit Diagnoses Not on filedocumented in this encounter"
--- OUTSIDE RECORDS SUMMARY | ~2020-02-08 | XMS | Encounter Summary ---
Demographics + + + | Address | [address] | | | [place] [address] | + + + | Home Phone | | + + + | Preferred Language | Unknown | + + + | Marital Status | | + + + | Methodist Affiliation | 1077 | + + + | Race | White | + + + | Ethnic Group | Not or | + + + Author + + + | Author | [facility] | | | and [place] | + + + | Organization | [facility] | | | and [...] [place] | | | | | [address] | | + + + + + | Han Holt | ECON | [address] | | | | | [place] | | | | | [address] | | + + + + + Care Team Providers + +------+ + | Care Internal Audit Director Name | Role | Phone | + +------+ + PCP | Unavailable | + +------+ + Reason for Visit + +--------+ + | Reason | Onset | Comments | | | Date | | + +--------+ + | Recall For Services | 12/31/ | | | (DMST) | 2012 | | + +--------+ + Encounter Details +--------+ + + + + | Date | Type | Department | Care Team | Description | +--------+ + + + + | 12/31/ | Telephone | [facility] | Dada Grant, | Recall For Services | | 2012 | | CARDIOLOGY [address] | [address] [place] | [facility] | | | | [place], | [place], | | | | | [place] [address] | [place] [address] | | | | | [phone] | [phone] | | | | | | | [...] this encounter Miscellaneous Notes Telephone Encounter - Khushboo Patel - 12/31/2012 10:07 AM PDTPatient was last seen 02-02 12. She is seeing Dr Jones in [place]. She is having "episodes", but feels she can hand le it and does not want to an appointment at this time documented in this encounter Plan of Treatment Not on filedocumented as of this encounter Visit Diagnoses Not on filedocumented in this encounter
--- OUTSIDE RECORDS SUMMARY | ~2020-02-08 | XMS | Encounter Summary ---
Demographics + + + | Address | [address] | | | [place] [address] | + + + | Home Phone | | + + + | Preferred Language | Unknown | + + + | Marital Status | | + + + | Yazidi Affiliation | 1077 | + + + | Race | White | + + + | Ethnic Group | Not or | + + + Author + + + | Author | [facility] | | | and [place] | + + + | Organization | [facility] | | | [...] [place] | | | | | [address] | | + + + + + | Han Holt | ECON | [address] | | | | | [place] | | | | | [address] | | + + + + + Care Team Providers + +------+ + | Care Skilled Nursing Case Manager Name | Role | Phone | + +------+ + | Alfred Jones MD | PCP | | + +------+ + Reason for Visit + +--------+ + | Reason | Onset | Comments | | | Date | | + +--------+ + | Appointment | 04/22/ | | | | 2013 | | + +--------+ + Encounter Details +--------+ + + + + | Date | Type | Department | Care Team | Description | +--------+ + + + + | 04/22/ | Telephone | [facility] | Dada Grant, | Appointment | | 2013 | | CARDIOLOGY [address] | MD [address] [place] | | | | | [place], | [place], | | | | | [place] [address] | [place] [id number] | | | | | [phone] | [phone] | | | | | | | [...] this encounter Miscellaneous Notes Telephone Encounter - Carly Cody - 04/22/2014 10:32 AM BRIANGloria called to cancel nubiacassandra luo's (04-22-14) appointment with Dr. Grant, states that she has just returned from a very bad vacation and she is not able emotionally able to make this appointment. She did not wa nt to reschedule at this time, says she is not having any problems and that she will call to reschedule in the future. docuomar in this enc nter Plan of Treatment Not on filedocumented as of this encounter Visit Diagnoses Not on filedocumented in this encounter"
--- OUTSIDE RECORDS SUMMARY | ~2020-02-08 | XMS | Encounter Summary ---
Demographics + + + | Address | [address] | | | [place] [address] | + + + | Home Phone | | + + + | Preferred Language | Unknown | + + + | Marital Status | | + + + | Buddhism Affiliation | 1077 | + + + | Race | White | + + + | Ethnic Group | Not or | + + + Author + + + | Author | [facility] | | | and [place] | + + + | Organization | [facility] | | [...] [place] | | | | | [address] | | + + + + + | Han Holt | ECON | [address] | | | | | [place] | | | | | [address] | | + + + + + Care Team Providers + +------+ + | Care Organizational Development Manager Name | Role | Phone | [...] + | 09/08/ | Office | [facility] | Yair, | Essential | | 2018 | Visit | CARDIOLOGY [address] | MALIK [address]ura [address] | hypertension with | | | | [place], | [place], | goal blood pressure | | | | [place] [address] | [place] [address] | less than 130/80 | | | | [phone] | [phone] | (Primary Dx); | | | | [...] + + documented in this encounter Progress Sveta Dominguez ARNP - 09/08/2017 1:30 PM PDTFormatting of [...] RESULTS reviewed during visit today primarily from [facility]: LIPID Lab Results Component Value Date CHOLHDL [...] PLTEX 244 09/05/2017 I reviewed records from [facility] for office visit on 08/2016 whic h [...] is in class I of t he [employer] functional class. There is no [...] Female Gender (1), mook g her a [id number] of 2, estimating a 2=2.2% risk of [...] this chart may have been created with [employer] voice recognition software. Occasi onal wrong-word or [...] GIACOMO | | | | | | ([id number]) on 09/08/2017 | | | | | [...]
--- OUTSIDE RECORDS SUMMARY | ~2020-02-08 | XMS | Encounter Summary ---
Demographics + + + | Address | [address] | | | [place] [address] | + + + | Home Phone | | + + + | Preferred Language | Unknown | + + + | Marital Status | | + + + | Anabaptism Affiliation | 1077 | + + + | Race | White | + + + | Ethnic Group | Not or | + + + Author + + + | Author | [facility] | | | and [place] | + + + | Organization | [facility] | | | [...] [place] | | | | | [address] | | + + + + + | Han Holt | ECON | [address] | | | | | [place] | | | | | [address] | | + + + + + Care Team Providers + +------+ + | Care Air Export Operations Agent Name | Role | Phone | + +------+ + | Alfred Jones MD | PCP | | + +------+ + Reason for Visit +--------+--------+ + | Reason | Onset | Comments | | | Date | | +--------+--------+ + | LABS | 08/03/ | Annual labs | | | 2014 | | +--------+--------+ + Encounter Details +--------+ + + + + | Date | Type | Department | Care Team | Description | +--------+ + + + + | 08/03/ | Telephone | [facility] | Dada Grant, | LABS (Annual labs) | | 2014 | | CARDIOLOGY [address] | [address] | | | | | [place], | [facility] | | [place] [address] | [place] [address] | | | | | [phone] | [phone] | | | | | | | [...] this encounter Miscellaneous Notes Telephone Encounter - Dominique Gtz Master of Arts - 08/03/2014 11:13 [facility] she needs her annual fasting labs. Where do we need to fax the order to? d ocumented in this encounter Plan of Treatment Not on filedocumented as of this encounter Visit Diagnoses Not on filedocumented in this encounter"
--- OUTSIDE RECORDS SUMMARY | ~2020-02-08 | XMS | Encounter Summary ---
Demographics + + + | Address | [address] | | | [place] [address] | + + + | Home Phone | | + + + | Preferred Language | Unknown | + + + | Marital Status | | + + + | Judaism Affiliation | 1077 | + + + | Race | White | + + + | Ethnic Group | Not or | + + + Author + + + | Author | [facility] | | | and [place] | + + + | Organization | [facility] | | | and [...] [place] | | | | | [address] | | + + + + + | Han Holt | ECON | [address] | | | | | [place] | | | | | [address] | | + + + + + Care Team Providers + +------+ + | Care It Applications Developer Name | Role | Phone | + +------+ + | Alfred Jones MD | PCP | | + +------+ + Encounter Details +--------+ + + + + | Date | Type | Department | Care Team | Description | +--------+ + + + + | 07/21/ | Orders Only | [facility] [place] | Lupe Leblanc, | | | 2013 | | CARDIOLOGY [address] | RN | | | | | [place], | | | | | | [place] [address] | | | | | | [phone] | | | +--------+ + + + [...]
--- OUTSIDE RECORDS SUMMARY | ~2020-02-08 | XMS | Encounter Summary ---
Demographics + + + | Address | [address] | | | [place] [address] | + + + | Home Phone | | + + + | Preferred Language | Unknown | + + + | Marital Status | | + + + | Yarsanism Affiliation | 1077 | + + + | Race | White | + + + | Ethnic Group | Not or | + + + Author + + + | Author | [facility] | | | and [place] | + + + | Organization | [facility] | | | [...] [place] | | | | | [address] | | + + + + + | Han Holt | ECON | [address] | | | | | [place] | | | | | [address] | | + + + + + Care Team Providers + +------+ + | Care Software Development Coordinator Name | Role | Phone | + [...] | 04/24/ | Refill | [facility] [place] | Dada Grant, | Medication Refill | | 2011 | | CARDIOLOGY [address] | [address] | | | | | [place], | [place], | | | | | [place] [address] | [place] [address] | | | | | [phone] | [phone] | | | | | | | [...]
--- OUTSIDE RECORDS SUMMARY | ~2020-02-08 | XMS | Encounter Summary ---
Demographics + + + | Address | [address] | | | [place] [address] | + + + | Home Phone | | + + + | Preferred Language | Unknown | + + + | Marital Status | | + + + | Denominational Affiliation | 1077 | + + + | Race | White | + + + | Ethnic Group | Not or | + + + Author + + + | Author | [facility] | | | and [place] | + + + | Organization | [facility] | | | and [...] [place] | | | | | [address] | | + + + + + | Han Holt | ECON | [address] | | | | | [place] | | | | | [address] | | + + + + + Care Team Providers + +------+ + | Care Sole Dyer Name | Role | Phone | + [...] | 11/18/ | Refill | [facility] [place] | Dada Grant, | Medication Refill | | 2012 | | CARDIOLOGY [address] [place] | | | | | [place], | [place], | | | | | [place] [address] | [place] [address] | | | | | [phone] | [phone] | | | | | | | [...]
--- OUTSIDE RECORDS SUMMARY | ~2020-02-08 | XMS | Encounter Summary ---
Demographics + + + | Address | [address] | | | [place] [address] | + + + | Home Phone [...] [place] | | | | | [address] | | + + + + + | Han Holt | ECON | [address] | | | | | [place] | | | | | [address] | | + + + + + Care Team Providers + +------+ + | Care Wool Carder Name | Role | Phone | + [...] | MED CTR EXTERNAL | MD Joan [address] | | | | | IMAGING [address] | [address] | | | | | [facility] | [place] [address] | | | | | [place] [address] | | | | | | [phone] | | | +--------+ + + + [...]
--- OUTSIDE RECORDS SUMMARY | ~2020-02-08 | XMS | Encounter Summary ---
Demographics + + + | Address | [address] | | | [place] [address] | + + + | Home Phone [...] | Author | [facility] | | | and [place] | + + + | Organization | [facility] | | | and [...] [place] | | | | | [address] | | + + + + + | Han Holt | ECON | [address] | | | | | [place] | | | | | [address] | | + + + + + Care Team Providers + +------+ + | Care Rn Documentation Specialist Name | Role | Phone | [...] | 08/27/ | Office | [facility] [place] | Yair, | Palpitations | | 2015 | Visit | CARDIOLOGY [address] | MALIK Bangura [address] | (Primary Dx); | | | | [place], | [place], | Paroxysmal atrial | | | | [place] [address] | [place] [address] | fibrillation (HCC); | | | | [phone] | [phone] | Paroxysmal | | | | | [...] documented in this encounter Progress Notes Sveta Miranda ARNP - 08/28/2015 3:48 PM PDTFormatting of this [...] PLTEX 217 08/25/2015 I reviewed records from [facility] for office visit on 07/2014. 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 There is no [...] Female Gende r (1), giving her a [id number] of 2, estimating a 2=2.2% risk of [...] this chart may have been created with [employer] voice recognition software. Occasi onal wrong-word or [...] | LABS - EXTERNAL SCAN | | 08/24/2015 | | | | | | 12:00 AM | | | | | | [...] MD | | | | | | ([id number]) on 08/28/2015 | | | | | [...]
--- OUTSIDE RECORDS SUMMARY | ~2020-02-08 | XMS | Encounter Summary ---
Demographics + + + | Address | [address] | | | [place] [address] | + + + | Home Phone | | + + + | Preferred Language | Unknown | + + + | Marital Status | | + + + | Spiritism Affiliation | 1077 | + + + | Race | White | + + + | Ethnic Group | Not or | + + + Author + + + | Author | [facility] | | | and [place] | + + + | Organization | [facility] | | | and [place] | + + + | Address | Unknown | + + + | Phone | Unavailable | + + + Support + + + + + | Name | Relationship | Address | Phone | + + + + + | Yury Kellas | ECON | [address] | | | | | [place] | | | | | [address] | | + + + + + | Han Holt | ECON | [address] | | | | | [place] | | | | | [address] | | + + + + + Care Team Providers + +------+ + | Care Manager Studio Name | Role | Phone | + +------+ + | Alfred Jones MD | PCP | | + +------+ + Reason for Visit +--------+--------+ + | Reason | Onset | Comments | | | Date | | +--------+--------+ + | LABS | 10/27/ | | | | 2018 | | +--------+--------+ + Encounter Details +--------+ + + + + | Date | Type | Department | Care Team | Description | +--------+ + + + + | 10/27/ | Telephone | [facility] | Yair | KAREN | | 2019 | | CARDIOLOGY [address] | MALIK Bangura [address] | | | | | [place], | [place], | | | | | [place] [address] | [place] [address] | | | | | [phone] | [phone] | | | | | | | [...] this encounter Miscellaneous Notes Telephone Encounter - Johanne Sibley RN - 10/27/2018 11:40 AM PDTOrders done ........ ..................................Johanne Sibley, RN on 10/27/18 at 11:40 elephone Encount Ayla Block Diesel Mechanic Apprentice - 10/27/2018 11:15 AM PDTPatient scheduled for an ap pointment on 11/02/2018 and is needing a fasting Lipid panel, CBC and CMP. Please order, than k you. Called and LM for a call back, patient is needing fast labs done prior to her appointment. Need to check on where she would like to have them done since she lives in [place]. Electr onically signed by Ayla Lopez Diesel Mechanic Apprentice at 10/27/2018 11:17 AM PDTdocumented in this encounter Plan of Treatment + [...]
--- OUTSIDE RECORDS SUMMARY | ~2020-02-08 | XMS | Encounter Summary ---
Demographics + + + | Address | [address] | | | [place] [address] | + + + | Home Phone | | + + + | Preferred Language | Unknown | + + + | Marital Status | | + + + | Presybeterian Affiliation | 1077 | + + + | Race | White | + + + | Ethnic Group | Not or | + + + Author + + + | Author | [facility] | | | and [place] | + + + | Organization | [facility] | | | [...] [place] | | | | | [address] | | + + + + + | Han Holt | ECON | [address] | | | | | [place] | | | | | [address] | | + + + + + Care Team Providers + +------+ + | Care Equipment Maintenance Technician Name | Role | Phone | [...] + + | 08/04/ | Office | [facility] | Dada Grant, | PSVT (paroxysmal | | 2015 | Visit | CARDIOLOGY [address] | [address] [facility] | supraventricular | | | | [place], | [place], | tachycardia) ([facility]) | | | | [place] [address] | [place] [address] | (Primary Dx); A-fib | | | | [phone] | [phone] | ([facility]); Palpitations; | | | | | | Atrial fibrillation | | | | | | ([facility]); Paroxysmal | | | | | | supraventricular | | | | | | tachycardia (HCC) | +--------+---------+ + + + Social History [...] as needed. 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 She stated that s he would [...] She is in class I of the [place] [employer] functional class. There is no [...] year. Electronically signed by: Dada Grant MD [facility] 08/04/2014 Portions of this chart may have been created with [employer] voice recognition software. Occasi onal wrong-word or [...] | | | | | | tachycardia) ([facility]) | | | | | | A-fib ([facility]) | | | | | | Palpitations | | + +------+--------+ + + documented as of this encounter Procedures + +--------+ + + + | Procedure Name | Priori | Date/Time | Associated Diagnosis | Comments | | | ty | | | | + +--------+ + + + | ECG - EXTERNAL SCAN | | 08/04/2014 | | | | | | 12:00 AM | | | | | | PST | | | + +--------+ + + + documented in this encounter Visit Diagnoses + + | Diagnosis | + + | PSVT (paroxysmal supraventricular tachycardia) ([facility]) - Primary Paroxysmal | | supraventricular tachycardia | + + | A-fib ([facility]) Atrial fibrillation | + + | Palpitations | + + | Atrial fibrillation (HCC) Atrial fibrillation | + + | Paroxysmal supraventricular tachycardia (HCC) Paroxysmal supraventricular tachycardia | + + documented in this encounter
--- OUTSIDE RECORDS SUMMARY | ~2020-02-08 | XMS | Encounter Summary ---
Demographics + + + | Address | [address] | | | [place] [address] | + + + | Home Phone | | + + + | Preferred Language | Unknown | + + + | Marital Status | | + + + | Zoroastrian Affiliation | 1077 | + + + | Race | White | + + + | Ethnic Group | Not or | + + + Author + + + | Author | [facility] | | | and [place] | + + + | Organization | [facility] | | | [...] [place] | | | | | [address] | | + + + + + | Han Holt | ECON | [address] | | | | | [place] | | | | | [address] | | + + + + + Care Team Providers + +------+ + | Care Universal Grinder Set Up Operator Name | Role | Phone | + +------+ + | Alfred Jones MD | PCP | | + +------+ + Encounter Details +--------+ + + + + | Date | Type | Department | Care Team | Description | +--------+ + + + + | 08/15/ | Orders Only | [facility] [place] | Yair, | Paroxysmal atrial | | 2016 | | CARDIOLOGY [address] | Sveta, HEEL NAILING MACHINE OPERATOR [address] | fibrillation (HCC) | | | | [place], | [place], | (Primary Dx); | | | | [place] [address] | [place] [address] | Paroxysmal | | | | [phone] | [phone] | supraventricular | | | | | [...] MD | | | | | | ([id number]) on 08/28/2015 | | | | | [...]
--- OUTSIDE RECORDS SUMMARY | ~2020-02-08 | XMS | Encounter Summary ---
Demographics + + + | Address | [address] | | | [place] [address] | + + + | Home Phone | | + + + | Preferred Language | Unknown | + + + | Marital Status | | + + + | Taoism Affiliation | 1077 | + + + | Race | White | + + + | Ethnic Group | Not or | + + + Author + + + | Author | [facility] | | | and [place] | + + + | Organization | [facility] | | [...] [place] | | | | | [address] | | + + + + + | Han Holt | ECON | [address] | | | | | [place] | | | | | [address] | | + + + + + Care Team Providers + +------+ + | Care Polymer Materials Consultant Name | Role | Phone | + +------+ + | Alfred Jones MD | PCP | | + +------+ + Reason for Visit +--------+--------+ + | Reason | Onset | Comments | | | Date | | +--------+--------+ + | Other | / | Annual cardiology intake and annual labs | | | 2015 | | +--------+--------+ + Encounter Details +--------+ + + + + | Date | Type | Department | Care Team | Description | +--------+ + + + + | / | Telephone | [facility] | Dada Grant, | Other (Annual | | 2015 | | CARDIOLOGY [address] | [address] | cardiology intake | | | | [place], | [place], | and annual labs) | | | | [place] [address] | [place] [address] | | | | | [phone] | [phone] | | | | | | | [...] Telephone Encounter - Lupe Leblanc RN - 08/14/2015 9:46 AM PSTOrder done ............ ...............................Lupe Leblanc RN on 08/14/15 at 9:46 elephone Encounter - Dominique Gtz Internal Combustion Engineer - 08/14/2015 8:52 AM PSTLeft voicemail on patients ph one to call back for her annual cardiology intake. Patient will also need her annual labs, F asting lipid for hyperlipidemia, CBC and CMP. documented in this encounter Plan of Treatment [...]
--- OUTSIDE RECORDS SUMMARY | ~2020-02-08 | XMS | Encounter Summary ---
Demographics + + + | Address | [address] | | | [place] [address] | + + + | Home Phone | | + + + | Preferred Language | Unknown | + + + | Marital Status | | + + + | Mormon Affiliation | 1077 | + + + | Race | White | + + + | Ethnic Group | Not or | + + + Author + + + | Author | [facility] | | | and [place] | + + + | Organization | [facility] | | | and [...] [place] | | | | | [address] | | + + + + + | Han oHlt | ECON | [address] | | | | | [place] | | | | | [address] | | + + + + + Care Team Providers + +------+ + | Care Calciner Feeder Name | Role | Phone | + +------+ + | Alfred Jones MD | PCP | | + +------+ + Encounter Details +--------+ + + + + | Date | Type | Department | Care Team | Description | +--------+ + + + + | 03/08/ | Abstract | [facility] [place] | Dada Grant, | Atrial fibrillation | | 2012 | | CARDIOLOGY [address] | [address] | ([facility]) (Primary Dx); | | | | [place], | [place], | Paroxysmal | | | | [place] [address] | [place] [address] | supraventricular | | | | [phone] | [phone] | tachycardia (HCC); | | | | [...]
--- OUTSIDE RECORDS SUMMARY | ~2020-02-08 | XMS | Encounter Summary ---
Demographics + + + | Address | [address] | | | [place] [address] | + + + | Home Phone | | + + + | Preferred Language | Unknown | + + + | Marital Status | | + + + | Christianity Affiliation | 1077 | + + + [...] [place] | | | | | [address] | | + + + + + | Han Holt | ECON | [address] | | | | | [place] | | | | | [address] | | + + + + + Care Team Providers + +------+ + | Care Licensed Vocational Nurse Name | Role | Phone | + +------+ + | Alfred Jones MD | PCP | | + +------+ + Reason for Visit + +--------+ + | Reason | Onset | Comments | | | Date | | + +--------+ + | Medication Refill | 03/07/ | | | | 2013 | | + +--------+ + Encounter Details +--------+--------+ + + + | Date | Type | Department | Care Team | Description | +--------+--------+ + + + | 03/07/ | Refill | [facility] | Dada Grant, | Medication Refill | | 2013 | | [address] | [address] [facility] | | | | | [place], | [facility], | | | | | [place] [address] | [place] [address] | | | | | [phone] | [phone] | | | | | | | [...]
--- OUTSIDE RECORDS SUMMARY | ~2020-02-08 | XMS | Encounter Summary ---
Demographics + + + | Address | [address] | | | [place] [address] | + + + | Home Phone [...] + + + | Author | [facility] | | | and [place] | + + + | Organization | [facility] [...] [place] | | | | | [address] | | + + + + + | Han Holt | ECON | [address] | | | | | [place] | | | | | [address] | | + + + + + Care Team Providers + +------+ + | Care Raveler Name | Role | Phone | + +------+ + PCP | Unavailable | + +------+ + Encounter Details +--------+ + + + + | Date | Type | Department | Care Team | Description | +--------+ + + + + | 04/01/ | Hospital | [facility] | Dada Grnat, | | | 2010 | Encounter | MED CTR XRAY [address] | MD [address] | | | | | [place] | [place], | | | | | [place] [address] | [place] [address] | | | | | [phone] | [phone] | | | | | | | [...] MD - 04/01/2011 8:44 AM PDTDATE: 04/01/11 SpeakingPal EXPRESS EVENT MONITOR The patient wore the Affirm express event monitor from 04/01/2011 until 04/22/2011 [...] per minute. DICTATED BY: Dada Grant MD, [facility] Cardiology JOB #: [id number] EXT JOB #:[id number] EDITED: 2010 13:32 edited: 05/08/11 ld <Electronically Signed by Dada Grant MD [facility]> 05/22/11 1118 documented in this [...] Performed At | + + + | [facility] Diagnostic Imaging Department | [facility] | | [address] [facility] | [facility] | | E C H O C A R D | DIAG IMG | | I O G R A P H Y R E P O R T HEIGHT: 5'3" | | | WEIGHT: 125# ACETYLENE TORCH OPERATOR: TD REFERRING DR: DORIS | | | READING MARC GEORGE DIAGNOSIS: A-FIB, CP, PALP | | | [...] Transcribed | | | Date/Time: 04/02/2011 06:28 Inpatient Services Rn: | | | <Electronically Signed by Dada Grant MD [facility]> 04/02/11 | | | 1224 | | + + + + + | Procedure Note | + + | Kulwinder Florence Conversion - 07/23/2013 4:02 PM [facility] | | Diagnostic Imaging Department | | [address] [facility] | | | | | | | | E C H O C A R D I O G R A P H Y R E P O R T | | | | | | HEIGHT: 5'3" WEIGHT: 125# ACETYLENE TORCH OPERATOR: TD | | REFERRING DR: DORIS TRIPLETT [...] | Transcribed Date/Time: 04/02/2011 06:28 | | Inpatient Services Rn: | | <Electronically Signed by MD ROB Gongora> 04/02/11 1224 | + + + +---------+ [...] Performed At | + + + | [facility] Diagnostic Imaging Department | [facility] | | [address] [facility] | [facility] | | REGADENOSON STRESS TEST, | DIAG [...] Transcribed Date/Time: | | | 04/01/2011 15:28 Inpatient Services Rn: <Electronically Signed | | | by Dada Grant MD [facility]> 04/02/11 0617 | | + + + + + | Procedure Note | + + | Naman, Rad Conversion - 07/23/2013 4:02 PM [facility] | | Diagnostic Imaging Department [address] [facility] | | REGADENOSON STRESS TEST, 04/01/2011 PROCEDURE: [...] 15:28Transcriptionist: <Electronically Signed by Dada Grant MD [facility]> | | 04/02/11 06 | | | |The Regadenoson sestamibi tomographic [...] 15:23 | |Transcribed Date/Time: 04/01/2011 15:28 | |Inpatient Services Rn: | |<Electronically Signed by Dada Grant MD [facility]> 04/02/11616 | + + + +---------+ + + | Performing | Address | City/State/Zipcode | Phone Number | | Organization | | | | + +---------+ + + | [place] | | | | | [place] | | | | + +---------+ + + documented in this encounter Visit Diagnoses Not on filedocumented in this encounter
--- OUTSIDE RECORDS SUMMARY | ~2020-02-08 | XMS | Encounter Summary ---
Demographics + + + | Address | [address] | | | [place] [address] | + + + | Home Phone | | + + + | Preferred Language | Unknown | + + + | Marital Status | | + + + | Hinduism Affiliation | 1077 | + + + | Race | White | + + + | Ethnic Group | Not or | + + + Author + + + | Author | [facility] | | | and [place] | + + + | Organization | [facility] | | | [...] [place] | | | | | [address] | | + + + + + | Han Holt | ECON | [address] | | | | | [place] | | | | | [address] | | + + + + + Care Team Providers + +------+ + | Care Software Systems Analyst Name | Role | Phone | + +------+ + | Alfred Jones MD | PCP | | + +------+ + Reason for Visit +--------+--------+ + | Reason | Onset | Comments | | | Date | | +--------+--------+ + | LABS | 08/28/ | | | | 2017 | | +--------+--------+ + Encounter Details +--------+ + + + + | Date | Type | Department | Care Team | Description | +--------+ + + + + | 08/28/ | Telephone | [facility] | Yair | KAREN | | 2017 | | CARDIOLOGY [address] | MALIK Bangura [address] | | | | | [place], | [place], | | | | | [place] [address] | [place] [address] | | | | | [phone] | [phone] | | | | | | | [...] this encounter Miscellaneous Notes Telephone Encounter - Isabella Granger CMA - 08/29/2017 7:24 AM PDTLab orders have been faxe d elephone Encounter - Dena Mohan RN - 08/28/2017 3:24 PM PDTOrdered. .................................... .......DENA MOHAN RN on 08/28/17 at 15:25 elephone Encounter - Isabella Granger CMA - 08/28/2017 3:06 PM PDTCalled and spoke with the patient will need CM P, LIPID, and CBC ordered, then I will fax to [facility] in [place] , Please let me courtney child when the order is ready documented in this encounter Plan of Treatment [...]
--- OUTSIDE RECORDS SUMMARY | ~2020-02-08 | XMS | Encounter Summary ---
Demographics + + + | Address | [address] | | | [place] [address] | + + + | Home Phone | | + + + | Preferred Language | Unknown | + + + | Marital Status | | + + + | Mosque Affiliation | 1077 | + + + [...] [place] | | | | | [address] | | + + + + + | Han Holt | ECON | [address] | | | | | [place] | | | | | [address] | | + + + + + Care Team Providers + +------+ + | Care Corporate Controller Name | Role | Phone | + +------+ + PCP | Unavailable | + +------+ + Encounter Details +--------+ + + + + | Date | Type | Department | Care Team | Description | +--------+ + + + + | 05/12/ | Hospital | [facility] | [place] [address], | | | 2006 | Encounter | MED CTR LABORATORY | DPM [address] | | | | | [address] [place] | [place], [place] | | | | | [place], [place] | [address] | | | | | [address] | | | | | | [phone] | | | +--------+ + + + [...]
--- OUTSIDE RECORDS SUMMARY | ~2020-02-08 | XMS | Encounter Summary ---
Demographics + + + | Address | [address] | | | [place] [address] | + + + | Home Phone | | + + + | Preferred Language | Unknown | + + + | Marital Status | | + + + | Religion Affiliation | 1077 | + + + | Race | White | + + + | Ethnic Group | Not or | + + + Author + + + | Author | [facility] | | | and [place] | + + + | Organization | [facility] | | | [...] [place] | | | | | [address] | | + + + + + | Han Hotl | ECON | [address] | | | | | [place] | | | | | [address] | | + + + + + Care Team Providers + +------+ + | Care Manager Telecom Name | Role | Phone | + [...] | | | | | | [place] [address] | | | | | | [phone] | | | +--------+ + + + [...]
--- OUTSIDE RECORDS SUMMARY | ~2020-02-08 | XMS | Encounter Summary ---
Demographics + + + | Address | [address] | | | [place] [address] | + + + | Home Phone | | + + + | Preferred Language | Unknown | + + + | Marital Status | | + + + | Scientology Affiliation | 1077 | + + + | Race | White | + + + | Ethnic Group | Not or | + + + Author + + + | Author | [facility] | | | and [place] | + + + | Organization | [facility] | | [...] [place] | | | | | [address] | | + + + + + | Han Holt | ECON | [address] | | | | | [place] | | | | | [address] | | + + + + + Care Team Providers + +------+ + | Care Cotton Program Technician Name | Role | Phone | [...] 2014 | | CARDIOLOGY [address] | Sveta, ADULT DAY CARE WORKER [address] | | | | | [place], | [place], | | | | | [place] [address] | [place] [address] | | | | | [phone] | [phone] | | | | | | | [...]
--- OUTSIDE RECORDS SUMMARY | ~2020-02-08 | XMS | Encounter Summary ---
Demographics + + + | Address | [address] | | | [place] [address] | + + + | Home Phone | | + + + | Preferred Language | Unknown | + + + | Marital Status | | + + + | Protestant Affiliation | 1077 | + + + | Race | White | + + + | Ethnic Group | Not or | + + + Author + + + | Author | [facility] | | | and [place] | + + + | Organization | [facility] | | | [...] [place] | | | | | [address] | | + + + + + | Han Holt | ECON | [address] | | | | | [place] | | | | | [address] | | + + + + + Care Team Providers + +------+ + | Care Fender Finisher Name | Role | Phone | [...] Medication Refill | | 2017 | | CARDIOLOGY [address] | MALIK Bangura [address] | | | | | [place], | [place], | | | | | [place] [address] | [place] [address] | | | | | [phone] | [phone] | | | | | | | [...]
--- OUTSIDE RECORDS SUMMARY | ~2020-02-08 | XMS | Encounter Summary ---
Demographics + + + | Address | [address] | | | [place] [address] | + + + | Home Phone | | + + + | Preferred Language | Unknown | + + + | Marital Status | | + + + | Scientologist Affiliation | 1077 | + + + | Race | White | + + + | Ethnic Group | Not or | + + + Author + + + | Author | [facility] | | | and [place] | + + + | Organization | [facility] | | [...] [place] | | | | | [address] | | + + + + + | Han Holt | ECON | [address] | | | | | [place] | | | | | [address] | | + + + + + Care Team Providers + +------+ + | Care Engraver Wood Name | Role | Phone | + [...] 2017 | | CARDIOLOGY [address] | Sveta, SHARE[employer] NET DEVELOPER [address] | | | | | [place], | [place], | | | | | [place] [address] | [place] [address] | | | | | [phone] | [phone] | | | | | | | [...] + +-------+ + + + | % | 1.2 | | | | | Basophils, | | | | | | Body Fluid | | | | | + +-------+ [...]
--- OUTSIDE RECORDS SUMMARY | ~2020-02-08 | XMS | Encounter Summary ---
Demographics + + + | Address | [address] | | | [place] [address] | + + + | Home Phone | | + + + | Preferred Language | Unknown | + + + | Marital Status | | + + + | Holiness Affiliation | 1077 | + + + | Race | White | + + + | Ethnic Group | Not or | + + + Author + + + | Author | [facility] | | | and [place] | + + + | Organization | [facility] | | [...] [place] | | | | | [address] | | + + + + + | Han Holt | ECON | [address] | | | | | [place] | | | | | [address] | | + + + + + Care Team Providers + +------+ + | Care Av Specialist Name | Role | Phone | [...] 2012 | | CARDIOLOGY [address] | Sveta, LACE PAPER MACHINE OPERATOR [address] | | | | | [facility], | [place], | | | | | [place] [address] | [place] [address] | | | | | [phone] | [phone] | | | | | | | [...] | | | | | | [facility] | | [...] | | + +---------+ + + | [facility] | | | | | [facility] | | | | | - [...] | + +---------+ + + External Lab: [facility] INR (12/18/2011) + +-------+ + + + | [...] | | | LAB | | | [place], | | | | | | External [...]
[~2020-02-08 19:33] MED LIST changes: +SERTRALINE HCL50 MG PO
== END 2020-02-08 20:08 | disposition home or self-care (01) ==
LOC: ED 19:33
DX: I83.891 Varicose veins of right lower extremity with other complications (principal)
CPT/HCPCS: 99283